=== PATIENT | female | born 1980 | race Caucasian/White ===

== ENCOUNTER 2016-06-12 | Outpatient (CLI) | payer MEDICAID | END 2016-06-12 16:46 | disposition critical access hospital (66) | CPT/HCPCS: A0425; A0429 ==

== ENCOUNTER 2016-06-12 17:13 | Emergency (ER) | payer MEDICAID | END 2016-06-12 20:13 | disposition home or self-care (01) | DX: M54.2 Cervicalgia (principal); S09.90XA Unspecified injury of head, initial encounter; W18.39XA Other fall on same level, initial encounter; F10.120 Alcohol abuse with intoxication, uncomplicated; F17.200 Nicotine dependence, unspecified, uncomplicated ==

== ENCOUNTER 2016-10-16 14:12 | Outpatient (CLI) | payer MEDICAID | END 2016-10-16 14:13 | disposition EMS.NT | DX: S00.81XA Abrasion of other part of head, initial encounter (principal); Y33.XXXA Other specified events, undetermined intent, initial encounter ==

== ENCOUNTER 2017-11-05 | Outpatient (CLI) | END 2017-11-05 17:57 | disposition critical access hospital (66) | CPT/HCPCS: A0425; A0429 ==

== ENCOUNTER 2017-11-05 18:11 | Emergency (ER) | payer MEDICAID ==
--- NOTE | 2017-11-05 18:19 | ED Physician Documentation ---
History of Present Illness - Stated complaint Stated Complaint: HBD - History obtained from History obtained from: Patient, EMS - History of Present Illness Timing: Today Pain level max: 0 Pain level now: 0 Improved by: nothing Worsened by: nothing - Additonal information Additional information: patient was intoxicated at [employer] today, yelling at customers. [place] PD responded, state that she blew a 0.38 on the breathalyzer and gave her the choice between halfway or the ER. Patient reluctantly chose the ER. Drinks daily. No interest in quitting. No SI or HI. Review of Systems Ten Systems: 10 systems reviewed and negative Constitutional: denies: Fever, Chills Ears: denies: Ear pain Nose: denies: Rhinorrhea / runny nose, Congestion Throat: denies: Sore throat Cardiac: denies: Chest pain / pressure Respiratory: denies: Cough GI: reports: Nausea (mild). 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 HEENT: None Psych: None Musculoskeletal: None Derm: None - Past Surgical History Past Surgical History: Yes General: Other - Present Medications Home Medications: Ambulatory Orders Medication Instructions Recorded Confirmed Ibuprofen 600 mg PO PRN PRN 11/05/17 11/05/17 - Allergies Allergies/Adverse Reactions: Allergies Allergy/AdvReac Type Severity Reaction Status Date / Time amoxicillin Allergy Unknown Unknown Verified 01/05/16 01:55 - Social History Does the pt smoke?: Yes Smoking Status: Current every day smoker Does the pt drink ETOH?: Yes Does the pt have substance abuse?: No - Immunizations Immunizations are current?: Yes - POLST Patient has POLST: No PD ED PE NORMAL - Vitals Vital signs reviewed: Yes - General General: Alert and oriented X 3, No acute distress, Well developed/nourished - HEENT HEENT: PERRL, Moist mucous membranes - Neck Neck: Supple, no meningeal sign - Cardiac Cardiac: RRR, Strong equal pulses - Respiratory Respiratory: No respiratory distress, Clear bilaterally - Abdomen Abdomen: Soft, Non tender, Non distended - Derm Derm: Warm and dry, No rash - Extremities Extremities: No deformity, No tenderness to palpate, Normal ROM s pain - Neuro Neuro: Alert and oriented X 3 - Psych Psych: Normal mood, Normal affect Results - Vitals Vitals: Vital Signs - 24 hr 11/05/17 18:21 Temperature 36.6 C Heart Rate 109 H Respiratory 16 Rate Blood Pressure 111/79 O2 Saturation 95 Oxygen O2 Source Room air PD MEDICAL DECISION MAKING - ED course Complexity details: considered differential, d/w patient ED course: Patient is a 37-year-old female, chronic alcoholic who is intoxicated today. Ambulating with a steady gait throughout the emergency department. Speaking clearly and without slurring her words. She was drinking water and eating a sandwich when she eloped from the emergency department. She is not suicidal or homicidal. No criteria for involuntary hold. This document was made in part using voice recognition software. While efforts are made to proofread this document, sound alike and grammatical errors may occur. - Sepsis Event Vital Signs: Vital Signs - 24 hr 11/05/17 18:21 Temperature 36.6 C Heart Rate 109 H Respiratory 16 Rate Blood Pressure 111/79 O2 Saturation 95 Oxygen O2 Source Room air Departure - Departure Disposition: ED Elope Clinical Impression: Alcoholism Alcohol intoxication Qualifiers: Complication of substance-induced condition: uncomplicated Qualified Code(s): F10.920 - Alcohol use, unspecified with intoxication, uncomplicated Discharge Date/Time: 11/05/17 18:52
[2017-11-05 18:26] VITALS: BP 111/79
== END 2017-11-05 18:52 | disposition left against medical advice (07) ==
LOC: EDUNIT# → ED 18:11
DX: F10.920 Alcohol use, unspecified with intoxication, uncomplicated (principal); F17.200 Nicotine dependence, unspecified, uncomplicated
CPT/HCPCS: 99282

== ENCOUNTER 2017-11-22 10:03 | Outpatient (CLI) | payer MEDICAID | END 2017-11-22 10:04 | disposition critical access hospital (66) | LOC: EMS 10:03 | PROVIDERS: ATTEND Surgery | DX: R41.82 Altered mental status, unspecified (principal); Z72.89 Other problems related to lifestyle | CPT/HCPCS: A0425; A0429; A0999 ==

== ENCOUNTER 2017-11-22 10:19 | Emergency (ER) | payer MEDICAID ==
[2017-11-22 10:25] VITALS: BP 126/87
--- NOTE | 2017-11-22 10:57 | ED Physician Documentation ---
History of Present Illness - Stated complaint Stated Complaint: HBD - Chief complaint Chief Complaint: General - History obtained from History obtained from: Patient - History of Present Illness Timing: Today - Additonal information Additional information: 37-year-old female had been drinking earlier in the day and she was found in the parking lot of the old [employer] dealership in [place]. She was laying in the parking lot unconscious and the police were called. She was not making much sense when they arrived and they called the ambulance patient was transported the hospital with alcohol intoxication. 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 : None HEENT: None Psych: None Musculoskeletal: None Derm: None - Past Surgical History Past Surgical History: Yes General: Other - Present Medications Home Medications: Ambulatory Orders Medication Instructions Recorded Confirmed Ibuprofen 600 mg PO PRN PRN 11/05/17 11/05/17 - Allergies Allergies/Adverse Reactions: Allergies Allergy/AdvReac Type Severity Reaction Status Date / Time amoxicillin Allergy Unknown Unknown Verified 11/22/17 10:25 - Social History Does the pt smoke?: Yes Smoking Status: Current every day smoker Does the pt drink ETOH?: Yes Does the pt have substance abuse?: No - Immunizations Immunizations are current?: Yes - POLST Patient has POLST: No PD ED PE NORMAL - Vitals Vital signs reviewed: Yes (tachy and hypertensive ) - General General: Alert and oriented X 3, Well developed/nourished, Other (AOB and with slurred speech) - HEENT HEENT: Atraumatic, PERRL, EOMI - Neck Neck: Supple, no meningeal sign - Cardiac Cardiac: RRR, No murmur - Respiratory Respiratory: No respiratory distress, Clear bilaterally - Abdomen Abdomen: Soft, Non tender - Back Back: No CVA TTP, No spinal TTP - Derm Derm: Normal color, Warm and dry, No rash - Extremities Extremities: No deformity, No edema - Neuro Neuro: Alert and oriented X 3, 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, No motor deficit, No sensory deficit, Normal speech Eye Opening: Spontaneous Motor: Obeys Commands Verbal: Oriented GCS Score: 15 - Psych Psych: Normal mood, Normal affect Results - Vitals Vitals: Vital Signs - 24 hr 11/22/17 10:21 Temperature 36.6 C Heart Rate 110 H Respiratory 18 Rate Blood Pressure 126/87 H O2 Saturation 91 L Oxygen O2 Source Room air PD MEDICAL DECISION MAKING - ED course Complexity details: considered differential, d/w patient ED course: 37-year-old female who was intoxicated and passed out in the parking lot is brought to the hospital for evaluation she is here in the emergency department for over an hour before I am able to make it into her room and at that point she is ready to leave the emergency department. We have no reason to hold her here and after a screening examination she does not appear to be suffering from a life-threatening emergency. She is discharged to the street in care of herself. Her most significant complaint was that her $5 with a beer had been removed from her possession. - Sepsis Event Vital Signs: Vital Signs - 24 hr 11/22/17 10:21 Temperature 36.6 C Heart Rate 110 H Respiratory 18 Rate Blood Pressure 126/87 H O2 Saturation 91 L Oxygen O2 Source Room air Departure - Departure Disposition: 01 Home, Self Care Clinical Impression: Alcohol intoxication Qualifiers: Complication of substance-induced condition: with delirium Qualified Code(s): F10.921 - Alcohol use, unspecified with intoxication delirium Instructions: ED Alcohol Intoxication Follow-Up: Rose Patterson MD [Primary Care Provider] - Discharge Date/Time: 11/22/17 11:10
== END 2017-11-22 11:10 | disposition home or self-care (01) ==
LOC: EDUNIT# → ED 10:19
DX: F10.921 Alcohol use, unspecified with intoxication delirium (principal); F17.200 Nicotine dependence, unspecified, uncomplicated
CPT/HCPCS: 99283

== ENCOUNTER 2018-03-20 02:59 | Outpatient (CLI) | payer MEDICAID | END 2018-03-20 03:00 | disposition critical access hospital (66) | LOC: EMS 02:59 | PROVIDERS: ATTEND Surgery | DX: R46.89 Other symptoms and signs involving appearance and behavior (principal); R41.82 Altered mental status, unspecified | CPT/HCPCS: A0425; A0429; A0999 ==

== ENCOUNTER 2018-03-20 03:15 | Emergency (ER) | payer MEDICAID ==
[2018-03-20] MEDS ORDERED: OLANZapine 10 MG VIAL IM STA (03:40)
[2018-03-20 03:57] LABS: BASOPHILS % (AUTO) 0.5 %; EOSINOPHILS % (AUTO) 0.7 %; HGB - HEMOGLOBIN 14.9 g/dL (12.0-16.0); LYMPHOCYTES # (AUTO) 1.9 10^3/uL (1.5-3.5); LYMPHOCYTES % (AUTO) 39.5 %; MEAN CORPUSCULAR HEMOGLOBIN 35.5 pg (27.0-31.0); MEAN CORPUSCULAR HGB CONC 35.8 g/dL (32.0-36.0); MEAN CORPUSCULAR VOLUME 99.2 fL (81.0-99.0); MEAN PLATELET VOLUME 8.8 fL (7.9-10.8); MONOCYTES # (AUTO) 0.7 10^3/uL (0.0-1.0); MONOCYTES % (AUTO) 15.4 %; NEUTROPHILS # (AUTO) 2.1 10^3/uL (1.5-6.6); NEUTROPHILS % (AUTO) 43.9 %; PLT - PLATELET COUNT 227 10^3/uL (130-450); RED CELL DISTRIBUTION WIDTH 14.5 % (12.0-15.0); WHITE BLOOD COUNT 4.8 x10^3/uL (4.8-10.8)
--- NOTE | 2018-03-20 04:11 | ED Physician Documentation ---
History of Present Illness - Stated complaint Stated Complaint: ETOH - Chief complaint Chief Complaint: MHE - History obtained from History obtained from: EMS - History of Present Illness Timing: Today - Additonal information Additional information: 37 y/o female found on the side of the road yelling for help. Obviously intoxicated unable to care for herself she was transported to the hospital uncooperative. 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 : None HEENT: None Psych: None Musculoskeletal: None Derm: None - Past Surgical History Past Surgical History: Yes General: Other - Present Medications Home Medications: Ambulatory Orders Medication Instructions Recorded Confirmed Ibuprofen 600 mg PO PRN PRN 11/05/17 11/05/17 - Allergies Allergies/Adverse Reactions: Allergies Allergy/AdvReac Type Severity Reaction Status Date / Time amoxicillin Allergy Unknown Unknown Verified 03/20/18 03:36 - Social History Does the pt smoke?: Yes Smoking Status: Current every day smoker Does the pt drink ETOH?: Yes Does the pt have substance abuse?: No - Immunizations Immunizations are current?: Yes - POLST Patient has POLST: No PD ED PE NORMAL - Vitals Vital signs reviewed: Yes (tachy and hypertensive ) - General General: Well developed/nourished, Other (fighting restraints yelling profanity asking for help AOB) - HEENT HEENT: Atraumatic, PERRL, EOMI - Neck Neck: Supple, no meningeal sign - Cardiac Cardiac: No murmur, Other (tachy to 100) - Respiratory Respiratory: No respiratory distress, Clear bilaterally - Abdomen Abdomen: Soft, Non tender - Back Back: No CVA TTP, No spinal TTP - Derm Derm: Normal color, Warm and dry, No rash - Extremities Extremities: No deformity, No edema - Neuro Neuro: [employer] 2-12 intact, No motor deficit, No sensory deficit Eye Opening: Spontaneous Motor: Obeys Commands Verbal: Confused GCS Score: 14 - Psych Psych: Normal affect, Other (mood is uncooperative ) Results - Vitals Vitals: Vital Signs - 24 hr 03/20/18 03/20/18 03/20/18 03:27 03:57 05:52 Temperature 36.7 C Heart Rate 118 H 125 H 113 H Respiratory 24 22 13 Rate Blood Pressure 141/103 H O2 Saturation 95 96 94 Oxygen O2 Source Room air - Labs Labs: Laboratory Tests 03/20/18 03/20/18 03/20/18 03:50 03:50 03:50 WBC 4.8 RBC 4.20 Hgb 14.9 Hct 41.7 MCV 99.2 H MCH 35.5 H MCHC 35.8 RDW 14.5 Plt Count 227 MPV 8.8 Neut # (Auto) 2.1 Lymph # (Auto) 1.9 Reeves # (Auto) 0.7 Eos # (Auto) 0.0 Baso # (Auto) 0.0 Absolute Nucleated RBC 0.00 Nucleated RBC % 0.1 Sodium 142 Potassium 3.6 Chloride 106 Carbon Dioxide 23 Anion Gap 13.0 BUN 5 L Creatinine 0.4 Estimated GFR (MDRD) 181 Glucose 106 H Calcium 9.0 Total Bilirubin 0.6 AST 273 H ALT 260 H Alkaline Phosphatase 61 Troponin I < 0.04 Total Protein 8.2 Albumin 4.3 Globulin 3.9 Albumin/Globulin Ratio 1.1 Lipase 44 Salicylates < 6.0 Acetaminophen < 10 L Ethyl Alcohol 417.6 PD MEDICAL DECISION MAKING - ED course Complexity details: reviewed old records, reviewed results, re-evaluated patient, considered differential, d/w patient ED course: 37 y/o female with a history of alcoholism arrives to the ED acutely intoxicated and uncooperative. She is restrained and blood work is obtained demonstrating a near fatal alcohol overdose. The patient remains aggressively uncooperative and is medicated with zyprexa 10mg IM and when this is in-effective she is administered ativan 2mg IM. She is observed in the ED with intention to discharge the patient when her alcohol level is metabolized to a safe level. At shift change care of the patient is turned over to Dr. Mckenzie. Departure - Departure Clinical Impression: Pathological alcohol intoxication with delirium Condition: Serious Instructions: ED Overdose Alcohol Follow-Up: [facility] [Provider Group]
[2018-03-20 04:13] LABS: ACETAMINOPHEN < 10 ug/mL (10-30); ALBUMIN 4.3 g/dL (3.2-5.5); ALBUMIN/GLOBULIN RATIO 1.1 (1.0-2.2); ALKALINE PHOSPHATASE 61 IU/L (42-121); ALT ALANINE AMINOTRANSFERASE 260 IU/L (10-60); AST ASPARTATE AMINOTRANSFERASE 273 IU/L (10-42); BILIRUBIN,TOTAL 0.6 mg/dL (0.2-1.0); BUN - BLOOD UREA NITROGEN 5 mg/dL (6-20); CARBON DIOXIDE - CO2 23 mmol/L (21-32); CHLORIDE 106 mmol/L (101-111); CREATININE 0.4 mg/dL (0.4-1.0); GFR - MDRD 181 (>89); GLUCOSE 106 mg/dL (70-100); LIPASE 44 U/L (22-51); SALICYLATE < 6.0 mg/dL; SODIUM 142 mmol/L (135-145); TOTAL PROTEIN 8.2 g/dL (6.7-8.2)
[2018-03-20] MEDS ORDERED: LORazepam 2 MG/ML VIAL IM STA (04:27)
[2018-03-20 11:27] VITALS: BP 118/83
--- NOTE | 2018-03-20 14:21 | ED Physician Documentation ---
ED Addendum - Addendum Addendum: 03/20/18 14:19 She rested through the morning after change of shift. She did not have any complaints. She awoke enough to be pleasant and cooperative. She had a small bite to eat provided and then was ambulatory to the bathroom. There is no ataxia. She states she would go home and not drink alcohol. I did provide a prescription for in case she wanted to completely stop drinking and would have withdrawal symptoms. She denied any suicidal ideation. She was discharged from the department stable condition ambulatory without any complaints. No final diagnosis acute alcohol intoxication #2 alcohol abuse Disposition discharged home in stable condition
== END 2018-03-20 11:25 | disposition home or self-care (01) ==
LOC: EDUNIT# → ED 03:15
DX: F10.121 Alcohol abuse with intoxication delirium (principal); R00.0 Tachycardia, unspecified; F17.200 Nicotine dependence, unspecified, uncomplicated
CPT/HCPCS: 36415; 80053; 80307; 80320; 80329; 83690; 84484; 85025; 99285

== ENCOUNTER 2018-03-20 13:46 | Outpatient (CLI) | payer MEDICAID | END 2018-03-20 13:47 | disposition critical access hospital (66) | LOC: EMS 13:46 | PROVIDERS: ATTEND Surgery | DX: R46.4 Slowness and poor responsiveness (principal) | CPT/HCPCS: A0425; A0429; A0999 ==

== ENCOUNTER 2018-03-20 13:58 | Emergency (ER) | payer MEDICAID ==
[2018-03-20 14:57] LABS: BASOPHILS % (AUTO) 0.3 %; EOSINOPHILS % (AUTO) 0.7 %; HGB - HEMOGLOBIN 14.1 g/dL (12.0-16.0); LYMPHOCYTES # (AUTO) 1.7 10^3/uL (1.5-3.5); LYMPHOCYTES % (AUTO) 31.6 %; MEAN CORPUSCULAR HEMOGLOBIN 35.1 pg (27.0-31.0); MEAN CORPUSCULAR HGB CONC 35.2 g/dL (32.0-36.0); MEAN CORPUSCULAR VOLUME 99.6 fL (81.0-99.0); MEAN PLATELET VOLUME 8.5 fL (7.9-10.8); MONOCYTES # (AUTO) 0.9 10^3/uL (0.0-1.0); MONOCYTES % (AUTO) 16.7 %; NEUTROPHILS # (AUTO) 2.7 10^3/uL (1.5-6.6); NEUTROPHILS % (AUTO) 50.7 %; PLT - PLATELET COUNT 217 10^3/uL (130-450); RED BLOOD COUNT 4.01 10^6/uL (4.20-5.40); RED CELL DISTRIBUTION WIDTH 14.2 % (12.0-15.0); WHITE BLOOD COUNT 5.3 x10^3/uL (4.8-10.8)
[2018-03-20] MEDS ORDERED: FOLIC ACID INJ 1 MG, THIAMINE INJ 100 MG, MAGNESIUM SULFATE 2 GM, MULTIVITAMIN 10 ML in... IV STA ×5 (15:02)
[2018-03-20] MEDS ORDERED: THIAMINE INJ 100 MG in SODIUM CHLORIDE 0.9% 50 ML IV STA (15:02)
[2018-03-20] MEDS ORDERED: NALOXONE 0.4 MG/ML VIAL IVP STA (15:02)
--- NOTE | 2018-03-20 15:04 | ED Physician Documentation ---
PD HPI OVERDOSE - Stated complaint Stated Complaint: ETOH - Chief complaint Chief Complaint: MHE - History obtained from History obtained from: EMS - History of Present Illness Timing - onset: Today (She was seen overnight for alcohol intoxication. She returns by EMS found laying by the side of the road pretty much unresponsive. Patient is obtunded on my evaluation with pinpoint pupils. 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 HEENT: None Psych: None Musculoskeletal: None Derm: None - Past Surgical History Past Surgical History: Yes General: Other - Present Medications Home Medications: Ambulatory Orders Medication Instructions Recorded Confirmed RX: Ibuprofen 600 mg PO PRN PRN 11/05/17 11/05/17 Promethazine [Phenergan] 25 mg PO Q6H PRN #30 tab 03/20/18 chlordiazePOXIDE [Librium] 25 mg PO TID PRN #20 capsule 03/20/18 - Allergies Allergies/Adverse Reactions: Allergies Allergy/AdvReac Type Severity Reaction Status Date / Time amoxicillin Allergy Unknown Unknown Verified 03/20/18 14:15 - Social History Does the pt smoke?: Yes Smoking Status: Current every day smoker Does the pt drink ETOH?: Yes Does the pt have substance abuse?: No - Immunizations Immunizations are current?: Yes - POLST Patient has POLST: No PD ED PE NORMAL - Vitals Vital signs reviewed: Yes - General General: Other (She is somnolent and snoring, she is protecting her airway laying on her side without active vomiting or obvious evidence of trauma) - HEENT HEENT: Other (Very small pupils) - Neck Neck: Supple, no meningeal sign, No bony TTP - Cardiac Cardiac: RRR, No murmur - Respiratory Respiratory: No respiratory distress, Clear bilaterally - Abdomen Abdomen: Soft, Non tender - Back Back: No CVA TTP, No spinal TTP - Derm Derm: Normal color, Warm and dry - Extremities Extremities: No deformity, No tenderness to palpate, Normal ROM s pain, No edema, No calf tenderness / cord Results - Vitals Vitals: Vital Signs - 24 hr 03/20/18 03/20/18 03/20/18 14:09 18:00 19:00 Temperature 36.5 C Heart Rate 94 94 Respiratory 15 16 16 Rate Blood Pressure 103/59 L 82/50 L O2 Saturation 97 98 97 Oxygen O2 Source Room air - Labs Labs: Laboratory Tests 03/20/18 03/20/18 14:36 14:36 WBC 5.3 RBC 4.01 L Hgb 14.1 Hct 40.0 MCV 99.6 H MCH 35.1 H MCHC 35.2 RDW 14.2 Plt Count 217 MPV 8.5 Neut # (Auto) 2.7 Lymph # (Auto) 1.7 [place] # (Auto) 0.9 Eos # (Auto) 0.0 Baso # (Auto) 0.0 Absolute Nucleated RBC 0.00 Nucleated RBC % 0.1 Sodium 136 Potassium 3.6 Chloride 100 L Carbon Dioxide 23 Anion Gap 13.0 BUN 7 Creatinine 0.4 Estimated GFR (MDRD) 181 Glucose 96 Calcium 8.5 Magnesium 1.9 Total Bilirubin 0.6 AST 266 H ALT 262 H Alkaline Phosphatase 51 Total Protein 7.3 Albumin 4.0 Globulin 3.3 Albumin/Globulin Ratio 1.2 Lipase 46 Salicylates < 6.0 Acetaminophen < 10 L Ethyl Alcohol 471.9 - Rads (name of study) CT Head and Cspine Radiology: EMP read contemporaneously (NAD) PD MEDICAL DECISION MAKING - ED course ED course: 37-year-old woman presents obtunded, presumed alcohol Intoxication given her history, but since no history is available CT of the head and neck and labs are done. We also trialed Narcan given her small pupils which had no effect. Blood alcohol 470 which is causative. She was observed for several hours and basically came back to normal mental status despite the persistent high alcohol level. I was not prepared to discharge her but she started demanding discharge and eventually ambulated out of the emergency department. Departure - Departure Disposition: ED Elope Clinical Impression: Alcohol intoxication Qualifiers: Complication of substance-induced condition: with delirium Qualified Code(s): F10.921 - Alcohol use, unspecified with intoxication delirium Altered mental status Qualifiers: Altered mental status type: coma Coma depth: [place] coma 3-8 Coma timing: in the field (EMT or ambulance) Qualified Code(s): R40.2431 - Dalila coma scale score 3-8, in the field [EMT or ambulance] Condition: Stable Discharge Date/Time: 03/20/18 19:10
[2018-03-20 15:05] LABS: ACETAMINOPHEN < 10 ug/mL (10-30); ALBUMIN/GLOBULIN RATIO 1.2 (1.0-2.2); ALKALINE PHOSPHATASE 51 IU/L (42-121); ALT ALANINE AMINOTRANSFERASE 262 IU/L (10-60); AST ASPARTATE AMINOTRANSFERASE 266 IU/L (10-42); BILIRUBIN,TOTAL 0.6 mg/dL (0.2-1.0); BUN - BLOOD UREA NITROGEN 7 mg/dL (6-20); CALCIUM 8.5 mg/dL (8.5-10.3); CARBON DIOXIDE - CO2 23 mmol/L (21-32); CHLORIDE 100 mmol/L (101-111); CREATININE 0.4 mg/dL (0.4-1.0); GFR - MDRD 181 (>89); GLUCOSE 96 mg/dL (70-100); LIPASE 46 U/L (22-51); MAGNESIUM 1.9 mg/dL (1.7-2.8); SALICYLATE < 6.0 mg/dL; SODIUM 136 mmol/L (135-145); TOTAL PROTEIN 7.3 g/dL (6.7-8.2)
[2018-03-20] MEDS ORDERED: THIAMINE 100 MG/1 ML 2 ML MDV ONE (15:28)
--- NOTE | 2018-03-20 16:06 | CT Report ---
Reason: etoh poss trauma Procedure Date: 03/20/2018 Accession Number: [id number] / [id number] Procedure: CT - Head W/O CPT Code: FULL RESULT: EXAM: CT HEAD EXAM DATE: 03/20/2018 03:22 PM. CLINICAL HISTORY: Etoh. Possible trauma. COMPARISON: HEAD W/O 06/12/2016 5:33 PM. TECHNIQUE: Multiaxial CT images were obtained from the foramen magnum to the vertex. Reformats: Sagittal and coronal. IV contrast: None. In accordance with CT protocol optimization, one or more of the following dose reduction techniques were utilized for this exam: automated exposure control, adjustment of mA and/or KV based on patient size, or use of iterative reconstructive technique. FINDINGS: Parenchyma: No intraparenchymal hemorrhage. No evidence of mass, midline shift, or CT findings of infarction. Rosales-white differentiation is distinct. Extraaxial Spaces: Normal for age. No subdural or epidural collections identified. Ventricles: Normal in size and position. Sinuses and Orbits: Imaged paranasal sinuses, orbits, and mastoids show no significant abnormality. Bones: No evidence of fracture or calvarial defect. Other: None. IMPRESSION: Normal head CT. RADIA
--- NOTE | 2018-03-20 16:09 | CT Report ---
Reason: etoh poss trauma Procedure Date: 03/20/2018 Accession Number: [id number] / [id number] Procedure: CT - Cervical Spine W/O CPT Code: FULL RESULT: EXAM: CT CERVICAL SPINE WITHOUT CONTRAST DATE: 03/20/2018 03:22 PM. HISTORY: ETOH. Possible trauma. COMPARISONS: CERVICAL SPINE W/O 06/12/2016 5:36 PM. TECHNIQUE: Thin-section axial images were acquired of the cervical spine without contrast. Post-processing: Coronal and sagittal reformats. Other: None. In accordance with CT protocol optimization, one or more of the following dose reduction techniques were utilized for this exam: automated exposure control, adjustment of mA and/or KV based on patient size, or use of iterative reconstructive technique. FINDINGS: Alignment: No scoliosis or spondylolisthesis. Bones: No fracture or bone lesion. Interspace Levels/Facets: C1-C2: Unremarkable. C2-C3: Unremarkable. C3-C4: Unremarkable. C4-C5: Unremarkable. C5-C6: Unremarkable. C6-C7: Unremarkable. C7-T1: Unremarkable. Musculature: Normal. No fatty atrophy. Other: The paravertebral and prevertebral soft tissues are unremarkable. The lung apices are clear. IMPRESSION: Normal cervical spine CT. RADIA
[2018-03-20 19:16] VITALS: BP 82/50
== END 2018-03-20 19:10 | disposition left against medical advice (07) ==
LOC: ED 13:58
DX: F10.921 Alcohol use, unspecified with intoxication delirium (principal); Y90.8 Blood alcohol level of 240 mg/100 ml or more; R40.20 Unspecified coma; R40.2431 Glasgow coma scale score 3-8, in the field [EMT or ambulance]; F17.200 Nicotine dependence, unspecified, uncomplicated; R00.0 Tachycardia, unspecified
CPT/HCPCS: 36415; 70450; 72125; 80053; 80307; 80320; 80329; 83690; 83735; 84484; 85025; 96365; 96372; 96375; 99283; 99284; 99285; J2060; J3411; J7040

== ENCOUNTER 2018-10-15 19:29 | Outpatient (CLI) | payer MEDICAID | END 2018-10-15 19:30 | disposition critical access hospital (66) | LOC: EMS 19:29 | PROVIDERS: ATTEND Surgery | DX: R45.6 Violent behavior (principal); Z72.89 Other problems related to lifestyle | CPT/HCPCS: A0425; A0429; A0999 ==

== ENCOUNTER 2018-10-15 19:42 | Emergency (ER) | payer MEDICAID ==
[2018-10-15] MEDS ORDERED: OLANZapine 10 MG VIAL IM STA (19:57)
--- NOTE | 2018-10-15 20:03 | ED Physician Documentation ---
History of Present Illness - Stated complaint Stated Complaint: ETOH - History obtained from History obtained from: Patient, EMS - History of Present Illness Timing: Today Pain level max: 0 Pain level now: 0 - Additonal information Additional information: intoxicated. Found by EMS. Screaming for help. EMS states that she kicked them and so they restrained her to the backboard and brought her here. States her DENNISE was 320. Patient screaming and uncooperative. 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 HEENT: None Psych: None Musculoskeletal: None Derm: None - Past Surgical History Past Surgical History: Yes General: Other - Present Medications Home Medications: Ambulatory Orders Medication Instructions Recorded Confirmed Ibuprofen 600 mg PO PRN PRN 11/05/17 11/05/17 Promethazine [Phenergan] 25 mg PO Q6H PRN #30 tab 03/20/18 chlordiazePOXIDE [Librium] 25 mg PO TID PRN #20 capsule 03/20/18 - Allergies Allergies/Adverse Reactions: Allergies Allergy/AdvReac Type Severity Reaction Status Date / Time amoxicillin Allergy Unknown Unknown Verified 03/20/18 14:15 - Social History Does the pt smoke?: Yes Smoking Status: Current every day smoker Does the pt drink ETOH?: Yes Does the pt have substance abuse?: No - Immunizations Immunizations are current?: Yes - POLST Patient has POLST: No PD ED PE NORMAL - Vitals Vital signs reviewed: Yes - General General: Other (alert, screaming, belligerent) - HEENT HEENT: Moist mucous membranes, Pharynx benign - Neck Neck: Supple, no meningeal sign - Cardiac Cardiac: RRR - Respiratory Respiratory: No respiratory distress, Clear bilaterally - Derm Derm: Warm and dry - Extremities Extremities: Other (MAEE, restrained) - Neuro Neuro: Other (alert, intoxicated) Results - Vitals Vitals: Vital Signs - 24 hr 10/15/18 10/15/18 10/15/18 20:22 20:42 21:07 Temperature 36.9 C Heart Rate 125 H 130 H 117 H Respiratory 22 14 16 Rate Blood Pressure 161/76 H 142/86 H 94/57 L O2 Saturation 100 94 92 10/15/18 10/15/18 21:25 23:00 Temperature Heart Rate 110 H 105 H Respiratory 14 14 Rate Blood Pressure 104/59 L O2 Saturation 95 98 Oxygen O2 Source Nasal cannula - Labs Labs: Laboratory Tests 10/15/18 10/15/18 20:47 20:47 WBC 7.5 RBC 4.34 Hgb 14.9 Hct 41.8 MCV 96.3 MCH 34.3 H MCHC 35.6 RDW 13.1 Plt Count 258 MPV 8.4 Neut # (Auto) 4.6 Lymph # (Auto) 2.4 [place] # (Auto) 0.4 Eos # (Auto) 0.0 Baso # (Auto) 0.0 Absolute Nucleated RBC 0.00 Nucleated RBC % 0.0 Sodium 137 Potassium 3.5 Chloride 104 Carbon Dioxide 19 L Anion Gap 14.0 H BUN 5 L Creatinine 0.5 Estimated GFR (MDRD) 139 Glucose 113 H Calcium 8.6 Total Bilirubin 0.5 AST 42 ALT 34 Alkaline Phosphatase 55 Total Protein 8.2 Albumin 4.2 Globulin 4.0 Albumin/Globulin Ratio 1.1 Lipase 30 Ethyl Alcohol 415.5 PD MEDICAL DECISION MAKING - ED course Complexity details: reviewed old records, reviewed results, considered differential ED course: Patient with alcohol intoxication tonight. Given Zyprexa and ketamine. Patient fell asleep. Will allow her to sober in the emergency department and be reevaluated by the oncoming. Patient signed out This document was made in part using voice recognition software. While efforts are made to proofread this document, sound alike and grammatical errors may occur. Departure - Departure Clinical Impression: Alcohol abuse Alcohol intoxication Qualifiers: Complication of substance-induced condition: uncomplicated Qualified Code(s): F10.920 - Alcohol use, unspecified with intoxication, uncomplicated Condition: Stable
[2018-10-15] MEDS ORDERED: KETAMINE 500 MG/10 ML VIAL IM STA (20:09)
[2018-10-15 20:53] LABS: BASOPHILS % (AUTO) 0.3 %; EOSINOPHILS % (AUTO) 0.2 %; HGB - HEMOGLOBIN 14.9 g/dL (12.0-16.0); LYMPHOCYTES # (AUTO) 2.4 10^3/uL (1.5-3.5); LYMPHOCYTES % (AUTO) 32.7 %; MEAN CORPUSCULAR HEMOGLOBIN 34.3 pg (27.0-31.0); MEAN CORPUSCULAR HGB CONC 35.6 g/dL (32.0-36.0); MEAN CORPUSCULAR VOLUME 96.3 fL (81.0-99.0); MEAN PLATELET VOLUME 8.4 fL (7.9-10.8); MONOCYTES # (AUTO) 0.4 10^3/uL (0.0-1.0); MONOCYTES % (AUTO) 5.1 %; NEUTROPHILS # (AUTO) 4.6 10^3/uL (1.5-6.6); NEUTROPHILS % (AUTO) 61.7 %; PLT - PLATELET COUNT 258 10^3/uL (130-450); RED BLOOD COUNT 4.34 10^6/uL (4.20-5.40); RED CELL DISTRIBUTION WIDTH 13.1 % (12.0-15.0); WHITE BLOOD COUNT 7.5 x10^3/uL (4.8-10.8)
[2018-10-15 21:05] LABS: ALBUMIN 4.2 g/dL (3.2-5.5); ALBUMIN/GLOBULIN RATIO 1.1 (1.0-2.2); BILIRUBIN,TOTAL 0.5 mg/dL (0.2-1.0); CALCIUM 8.6 mg/dL (8.5-10.3); CREATININE 0.5 mg/dL (0.4-1.0); TOTAL PROTEIN 8.2 g/dL (6.7-8.2)
[2018-10-16 06:48] VITALS: BP 139/95
--- NOTE | 2018-10-16 06:51 | ED Physician Documentation ---
ED Addendum - Addendum Addendum: 10/16/18 06:49 Patient received an hand off from Dr. Evangelista at change of shift. Patient is intoxicated and required chemical restraint. No mental health concerns that will need to be further evaluated during this stay. Once patient is more sober, patient is allowed to be discharged. Patient was monitored overnight with no need for further medications. Patient awoke in the morning and was clinically sober. Patient ambulated throughout ED with a steady gait. Patient contacted boyfriend for ride home.
== END 2018-10-16 07:06 | disposition home or self-care (01) ==
LOC: ED 19:42
DX: F10.120 Alcohol abuse with intoxication, uncomplicated (principal); Y90.8 Blood alcohol level of 240 mg/100 ml or more; F17.200 Nicotine dependence, unspecified, uncomplicated
CPT/HCPCS: 36415; 80053; 80320; 83690; 85025; 96372; 99284

== ENCOUNTER 2019-09-06 01:12 | Outpatient (CLI) | payer MEDICAID | END 2019-09-06 01:13 | disposition critical access hospital (66) | LOC: EMS 01:12 | PROVIDERS: ATTEND Surgery | DX: S01.01XA Laceration without foreign body of scalp, initial encounter (principal); X58.XXXA Exposure to other specified factors, initial encounter | CPT/HCPCS: A0425; A0429; A0999 ==

== ENCOUNTER 2019-09-06 01:31 | Emergency (ER) | payer MEDICAID ==
[2019-09-06 02:53] VITALS: BP 105/62
--- NOTE | 2019-09-06 03:01 | CT Report ---
Reason: fall/head injury Procedure Date: 09/06/2019 Accession Number: [id number] / [id number] Procedure: CT - HEAD WO CPT Code: Final Report FULL RESULT: EXAM: CT HEAD EXAM DATE: 09/06/2019 02:45 AM. CLINICAL HISTORY: Fall/head injury. COMPARISON: HEAD W/O 03/20/2018 3:22 PM. TECHNIQUE: Multiaxial CT images were obtained from the foramen magnum to the vertex. Reformats: Sagittal and coronal. IV contrast: None. In accordance with CT protocol optimization, one or more of the following dose reduction techniques were utilized for this exam: automated exposure control, adjustment of mA and/or KV based on patient size, or use of iterative reconstructive technique. FINDINGS: Parenchyma: No intraparenchymal hemorrhage. No evidence of mass, midline shift, or CT findings of infarction. Rosales-white differentiation is distinct. Extraaxial Spaces: Normal for age. No subdural or epidural collections identified. Ventricles: Normal in size and position. Sinuses and Orbits: Imaged paranasal sinuses, orbits, and mastoids show no significant abnormality. Bones: No evidence of fracture or calvarial defect. Other: None. IMPRESSION: Normal head CT. RADIA
--- NOTE | 2019-09-06 03:02 | CT Report ---
Reason: fall/head/neck injury Procedure Date: 09/06/2019 Accession Number: [id number] / [id number] Procedure: CT - CERVICAL SPINE WO CPT Code: Final Report FULL RESULT: EXAM: CT CERVICAL SPINE WITHOUT CONTRAST DATE: 09/06/2019 02:45 AM. HISTORY: Fall. Head and neck injury. COMPARISONS: CERVICAL SPINE W/O 03/20/2018 3:22 PM. TECHNIQUE: Thin-section axial images were acquired of the cervical spine without contrast. Post-processing: Coronal and sagittal reformats. Other: None. In accordance with CT protocol optimization, one or more of the following dose reduction techniques were utilized for this exam: automated exposure control, adjustment of mA and/or KV based on patient size, or use of iterative reconstructive technique. FINDINGS: Alignment: No scoliosis or spondylolisthesis. Bones: No fracture or bone lesion. Interspace Levels/Facets: C1-C2: Unremarkable. C2-C3: Unremarkable. C3-C4: Unremarkable. C4-C5: Unremarkable. C5-C6: Unremarkable. C6-C7: Unremarkable. C7-T1: Unremarkable. Musculature: Unremarkable. Other: The paravertebral and prevertebral soft tissues are unremarkable. The lung apices are clear. IMPRESSION: 1. No acute cervical spine abnormality. RAD[facility]
--- NOTE | 2019-09-06 03:16 | ED Physician Documentation ---
PD HPI HEAD INJURY - Stated complaint Stated Complaint: HEAD LAC - Chief complaint Chief Complaint: Trauma Hd/Nk - History obtained from History obtained from: Patient, EMS - Additional information Additional information: PT is brought to the ED after drinking alcohol this evening and falling. Pt had been noted by neighbors to be going around the [employer] park, calling for her boyfriend, whom the pt states is "JEANINE". Pt does not remember falling. Neighbors noted her to be laying on the ground and bleeding, so they called EMS. Pt denies other complaints at this time. No neck pain. No headache. No NV. No CP or SOB. No recent fevers. Review of Systems Ten Systems: 10 systems reviewed and negative Constitutional: reports: Reviewed and negative Eyes: reports: Reviewed and negative Ears: reports: Reviewed and negative Nose: reports: Reviewed and negative Throat: reports: Reviewed and negative Cardiac: reports: Reviewed and negative Respiratory: reports: Reviewed and negative GI: reports: Reviewed and negative : reports: Reviewed and negative Skin: reports: Reviewed and negative Musculoskeletal: reports: Reviewed and negative Neurologic: reports: Reviewed and negative Psychiatric: reports: Reviewed and negative Endocrine: reports: Reviewed and negative Immunocompromised: reports: Reviewed and negative PD PAST MEDICAL HISTORY - Past Medical History Past Medical History: Yes Cardiovascular: None Respiratory: None Neuro: None Endocrine/Autoimmune: None GI: None 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 : None HEENT: None Psych: None Musculoskeletal: None Derm: None - Past Surgical History Past Surgical History: Yes General: Other - Present Medications Home Medications: Ambulatory Orders Medication Instructions Recorded Confirmed Ibuprofen 600 mg PO PRN PRN 11/05/17 11/05/17 Promethazine [Phenergan] 25 mg PO Q6H PRN #30 tab 03/20/18 chlordiazePOXIDE [Librium] 25 mg PO TID PRN #20 capsule 03/20/18 - Allergies Allergies/Adverse Reactions: Allergies Allergy/AdvReac Type Severity Reaction Status Date / Time amoxicillin Allergy Unknown Unknown Verified 09/06/19 01:36 - Social History Does the pt smoke?: Yes Smoking Status: Current every day smoker Does the pt drink ETOH?: Yes Does the pt have substance abuse?: No Substance Use and Type: Marijuana - Immunizations Immunizations are current?: Yes - POLST Patient has POLST: No PD ED PE NORMAL - Vitals Vital signs reviewed: Yes - General General: Alert and oriented X 3, No acute distress, Well developed/nourished, Other (Pt smells moderately of EtOH and is mildly clinically intoxicated.) - HEENT HEENT: PERRL, EOMI, Moist mucous membranes, Other (No laceration found on scalp. Pt has an occiptal abrasion, with bleeding controlled.) - Neck Neck: Supple, no meningeal sign, No bony TTP, Other (in C-collar) - Cardiac Cardiac: RRR, No murmur - Respiratory Respiratory: No respiratory distress, Clear bilaterally - Abdomen Abdomen: Soft, Non tender, Non distended - Derm Derm: Normal color, Warm and dry, No rash - Extremities Extremities: No deformity - Neuro Neuro: Alert and oriented X 3, Other (PT has mildly slurred and slowed speech. No focal deficits.) - Psych Psych: Normal mood, Normal affect Results - Vitals Vitals: Oxygen O2 Source Room air PD MEDICAL DECISION MAKING - ED course Complexity details: reviewed old records, reviewed results, re-evaluated patient, considered differential, d/w patient ED course: PT was worked up with CT scans of the head and c-spine, which were unremarkable. She was observed in the ED and found not to have worsening mental status, and was deemed stable for d/c home. Departure - Departure Disposition: Home, Self Care Clinical Impression: Alcohol intoxication Qualifiers: Complication of substance-induced condition: uncomplicated Qualified Code(s): F10.920 - Alcohol use, unspecified with intoxication, uncomplicated Head injury Qualifiers: Encounter type: initial encounter Qualified Code(s): S09.90XA - Unspecified injury of head, initial encounter Condition: Stable Instructions: ED Alcohol Intoxication, ED Head Injury Closed Discharge Date/Time: 09/06/19 03:52
== END 2019-09-06 03:52 | disposition home or self-care (01) ==
LOC: EDUNIT# → ED 01:31
DX: F17.200 Nicotine dependence, unspecified, uncomplicated (principal); S00.01XA Abrasion of scalp, initial encounter; S09.90XA Unspecified injury of head, initial encounter; F10.129 Alcohol abuse with intoxication, unspecified; W19.XXXA Unspecified fall, initial encounter; Y92.89 Other specified places as the place of occurrence of the external cause
CPT/HCPCS: 70450; 72125; 99283; 99284

== ENCOUNTER 2020-02-10 01:38 | Outpatient (CLI) | payer MEDICAID | END 2020-02-10 01:39 | disposition critical access hospital (66) | LOC: EMS 01:38 | PROVIDERS: ATTEND Surgery | DX: F10.129 Alcohol abuse with intoxication, unspecified (principal) | CPT/HCPCS: A0425; A0429; A0999 ==

== ENCOUNTER 2020-02-10 01:50 | Emergency (ER) | payer MEDICAID ==
--- NOTE | 2020-02-10 04:54 | ED Physician Documentation ---
History of Present Illness - Stated complaint Stated Complaint: EtOH - Chief complaint Chief Complaint: General - History obtained from History obtained from: Patient, EMS - Additonal information Additional information: Patient is brought to the emergency department by EMS after being found to be intoxicated. The patient apparently has a boyfriend but the boyfriend wants nothing to do with her and would not allow the police to bring the patient back home. As such, the patient was sent here. Patient denies complaints and states she wants to go home. She admits to drinking alcohol tonight, though she does not say exactly how much. No drugs. No other complaints at this time. Review of Systems Ten Systems: 10 systems reviewed and negative Constitutional: reports: Reviewed and negative Eyes: reports: Reviewed and negative Ears: reports: Reviewed and negative Nose: reports: Reviewed and negative Throat: reports: Reviewed and negative Cardiac: reports: Reviewed and negative Respiratory: reports: Reviewed and negative GI: reports: Reviewed and negative : reports: Reviewed and negative Skin: reports: Reviewed and negative Musculoskeletal: reports: Reviewed and negative Neurologic: reports: Reviewed and negative Psychiatric: reports: Reviewed and negative Endocrine: reports: Reviewed and negative Immunocompromised: reports: Reviewed and negative PD PAST MEDICAL HISTORY - Past Medical History Cardiovascular: None Respiratory: None Neuro: None Endocrine/Autoimmune: None 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: Yes Smoking Status: Current every day smoker Does the pt drink ETOH?: Yes Does the pt have substance abuse?: No - Immunizations Immunizations are current?: Yes - POLST Patient has POLST: No PD ED PE NORMAL - Vitals Vital signs reviewed: Yes - General General: No acute distress, Other (Patient is awake but visibly intoxicated, speaking slowly with slurred speech and sometimes unintelligibly. Patient smells of alcohol.) - HEENT HEENT: Atraumatic, PERRL, EOMI, Moist mucous membranes - Neck Neck: Supple, no meningeal sign - Cardiac Cardiac: RRR, No murmur, Strong equal pulses - Respiratory Respiratory: No respiratory distress, Clear bilaterally - Abdomen Abdomen: Soft, Non tender, Non distended - Back Back: No CVA TTP - Derm Derm: Normal color, Warm and dry, No rash - Extremities Extremities: No deformity - Neuro Neuro: Other (Alert, clinically intoxicated. Moderate unsteadiness and slurred speech.) - Psych Psych: Normal mood, Normal affect Results - Vitals Vitals: Oxygen O2 Source Room air PD MEDICAL DECISION MAKING - ED course Complexity details: reviewed old records, reviewed results, re-evaluated patient, considered differential, d/w patient ED course: The patient did not have any emergent medical complaints and desire to go home. However, she was quite intoxicated clinically and I did not feel that the patient should be discharged at this time, as she had no family or friends willing to come pick her up. The patient was observed in the emergency department for several hours and allowed to sleep after which she was found to be significantly more sober. I felt the patient was now stable for discharge. Discuss getting help with her drinking, at home management of the symptoms, and the usual indications for return. Departure - Departure Disposition: 01 Home, Self Care Clinical Impression: Alcohol intoxication Qualifiers: Complication of substance-induced condition: uncomplicated Qualified Code(s): F10.920 - Alcohol use, unspecified with intoxication, uncomplicated Condition: Stable Instructions: ED Alcohol Intoxication Discharge Date/Time: 02/10/20 06:22
[2020-02-10 06:22] VITALS: BP 104/63
== END 2020-02-10 06:22 | disposition home or self-care (01) ==
LOC: ED 01:50
DX: F10.129 Alcohol abuse with intoxication, unspecified (principal); F17.200 Nicotine dependence, unspecified, uncomplicated
CPT/HCPCS: 99283

== ENCOUNTER 2020-05-22 | Outpatient (CLI) | payer MEDICAID | END 2020-05-22 23:09 | disposition critical access hospital (66) | CPT/HCPCS: A0425; A0429; A0999 ==

== ENCOUNTER 2020-05-22 23:26 | Emergency (ER) | payer MEDICAID ==
--- NOTE | 2020-05-22 23:12 | ED Physician Documentation ---
History of Present Illness - Stated complaint Stated Complaint: HBD - History obtained from History obtained from: EMS, Other (patient does not contribute to HPI/ROS nor cooperate with PE; she is yelling and combative upon arrival) - History of Present Illness Timing: Unknown - Additonal information Additional information: BIBA. Per EMS report, patient showed up at a friend's house tonight and was a cting belligerent, possibly intoxicated and thus friend called 911. Police arrived and filled out [facility] form (EMS has form with them and on this form it is written "intoxicated to the point she can't care for herself"). Patient has 11 previous [facility] ED visits since 2011; all of these visits were due to alcohol intoxication or problem resulting from acute alcohol intoxication. Patient arrives to ED with restraints in place (placed by EMS). She is yelling "help" repeatedly, and otherwise yells incoherent phrases. After receiving medic report from EMS, I asked patient to stop yelling. She was transferred from EMS stretcher to ED stretcher. I tried to explain to patient that she needs to stop yelling so that I can assess her, and that there are other patients in the ED whose care would be affected by her continuing to yell. Patient's restraints had been briefly loosened so that she could be transferred to ED stretcher, and as I tried to talk to her, she barely missed in her attempt to kick me in the head. I tried to then explain that physical restraints would be necessary but she continued to yell over me, yelling "help" and otherwise incoherent words/phrases. Physical restraints and chemical restraints ordered. more than 1 hour after the zyprexa was given IM, patient continues to yell loudly and repeatedly despite attempts, by myself and ED staff, to de-escalate the situation (dimming lights, speaking in a calm tone). IV then placed and during placement, patient attempted to bite ED RN. She continues to yell "help" over and over and thus 2mg IV ativan ordered. Review of Systems Unable to obtain: Intoxicated, Uncooperative PD PAST MEDICAL HISTORY - Present Medications Home Medications: Ambulatory Orders Medication Instructions Recorded Confirmed Ibuprofen 600 mg PO PRN PRN 11/05/17 11/05/17 Promethazine [Phenergan] 25 mg PO Q6H PRN #30 tab 03/20/18 chlordiazePOXIDE [Librium] 25 mg PO TID PRN #20 capsule 03/20/18 - Allergies Allergies/Adverse Reactions: Allergies Allergy/AdvReac Type Severity Reaction Status Date / Time amoxicillin Allergy Unknown Unknown Verified 05/22/20 23:54 - Social History Does the pt drink ETOH?: Yes PD ED PE NORMAL - Vitals Vital signs reviewed: Yes - HEENT HEENT: PERRL, Other (midline chin echymosis) - Cardiac Cardiac: No murmur - Respiratory Respiratory: No respiratory distress, Clear bilaterally - Abdomen Abdomen: Soft, Non distended - Extremities Extremities: Normal ROM s pain PD ED PE EXPANDED - General General: Disheveled, poorly kept, Other (awake, repeatedly yelling "help" and otherwise incoherent words/phrases. combative) - Cardiac Cardiac: Tachy, Regular Rhythm Results - Vitals Vitals: Oxygen O2 Source Room air Oxygen Flow Rate 3 - Labs Labs: Laboratory Tests 05/22/20 05/23/20 05/23/20 00:01 01:18 01:18 WBC 8.0 RBC 4.48 Hgb 15.3 Hct 43.9 MCV 98.0 MCH 34.2 H MCHC 34.9 RDW 11.9 L Plt Count 220 MPV 10.0 Neut # (Auto) 4.3 Lymph # (Auto) 3.2 [place] # (Auto) 0.4 Eos # (Auto) 0.1 Baso # (Auto) 0.0 Absolute Nucleated RBC 0.00 Nucleated RBC % 0.0 Sodium 141 Potassium 4.0 Chloride 104 Carbon Dioxide 23 Anion Gap 14.0 H BUN 7 Creatinine 0.5 Estimated GFR (MDRD) 138 Glucose 95 Calcium 9.0 Total Bilirubin 0.3 AST 129 H ALT 93 H Alkaline Phosphatase 64 Total Protein 8.2 Albumin 4.3 Globulin 3.9 Albumin/Globulin Ratio 1.1 Lipase 22 Urine HCG, Qual NEGATIVE Salicylates < 6.0 Urine Opiates Screen NEGATIVE Ur Oxycodone Screen NEGATIVE Urine Methadone Screen NEGATIVE Ur Propoxyphene Screen NEGATIVE Acetaminophen < 10 L Ur Barbiturates Screen NEGATIVE Ur Tricyclics Screen NEGATIVE Ur Phencyclidine Scrn NEGATIVE Ur Amphetamine Screen NEGATIVE U Methamphetamines Scrn NEGATIVE U Benzodiazepines Scrn NEGATIVE Urine Cocaine Screen NEGATIVE U Cannabinoids Screen NEGATIVE Ethyl Alcohol 487.7 PD MEDICAL DECISION MAKING - ED course Complexity details: reviewed old records, reviewed results, re-evaluated patient, considered differential ED course: patient responded to the 2mg IV ativan and was asleep during the remainder of my shift; care of patient turned over to Dr. Mckenzie at end of my shift pending reevaluation when she is awake, alert, and appropriately conversant to allow for adequate assessment for proper disposition Departure - Departure Disposition: 01 Home, Self Care Clinical Impression: Alcohol intoxication Condition: Stable Instructions: ED Alcohol Intoxication Follow-Up: Rose Patterson MD [Primary Care Provider] - Comments: Excess alcohol. Seek treatment for alcohol cessation. Stay well-hydrated. Discharge Date/Time: 05/23/20 11:33
[2020-05-22] MEDS ORDERED: OLANZapine 10 MG VIAL IM STA (23:41)
[2020-05-23 00:50] LABS: MUDS CUTOFF CONCENTRATIONS CUTOFF CONC BELOW:
[2020-05-23 00:58] LABS: HCG UR QUAL NEGATIVE
[2020-05-23 01:06] LABS: AMPHETAMINE SCREEN,URINE NEGATIVE (NEGATIVE); BENZODIAZEPINES SCREEN, URINE NEGATIVE (NEGATIVE); COCAINE SCREEN URINE NEGATIVE (NEGATIVE); METHADONE SCREEN, URINE NEGATIVE (NEGATIVE); METHAMPHETAMINES SCREEN, URINE NEGATIVE (NEGATIVE); OPIATE SCREEN, URINE NEGATIVE (NEGATIVE); OXYCODONE SCREEN, URINE NEGATIVE (NEGATIVE); PROPOXYPHENE SCREEN, URINE NEGATIVE (NEGATIVE); TRICYCLIC ANTIDEPRESSANT,URINE NEGATIVE (NEGATIVE)
[2020-05-23] MEDS ORDERED: SODIUM CHLORIDE 0.9% 1,000 ML IV STA (01:21)
[2020-05-23] MEDS ORDERED: LORazepam 2 MG/ML VIAL IVP STA (01:21)
[2020-05-23 01:24] LABS: BASOPHILS % (AUTO) 0.4 %; EOSINOPHILS # (AUTO) 0.1 10^3/uL (0.0-0.7); EOSINOPHILS % (AUTO) 0.6 %; HGB - HEMOGLOBIN 15.3 g/dL (12.0-16.0); LYMPHOCYTES # (AUTO) 3.2 10^3/uL (1.5-3.5); LYMPHOCYTES % (AUTO) 39.3 %; MEAN CORPUSCULAR HEMOGLOBIN 34.2 pg (27.0-31.0); MEAN CORPUSCULAR HGB CONC 34.9 g/dL (32.0-36.0); MONOCYTES # (AUTO) 0.4 10^3/uL (0.0-1.0); MONOCYTES % (AUTO) 5.5 %; NEUTROPHILS # (AUTO) 4.3 10^3/uL (1.5-6.6); PLT - PLATELET COUNT 220 10^3/uL (130-450); RED BLOOD COUNT 4.48 10^6/uL (4.20-5.40); RED CELL DISTRIBUTION WIDTH 11.9 % (12.0-15.0)
[2020-05-23 01:38] LABS: ACETAMINOPHEN < 10 ug/mL (10-30); ALBUMIN 4.3 g/dL (3.2-5.5); ALBUMIN/GLOBULIN RATIO 1.1 (1.0-2.2); ALKALINE PHOSPHATASE 64 IU/L (42-121); ALT ALANINE AMINOTRANSFERASE 93 IU/L (10-60); AST ASPARTATE AMINOTRANSFERASE 129 IU/L (10-42); BILIRUBIN,TOTAL 0.3 mg/dL (0.2-1.0); BUN - BLOOD UREA NITROGEN 7 mg/dL (6-20); CARBON DIOXIDE - CO2 23 mmol/L (21-32); CHLORIDE 104 mmol/L (101-111); CREATININE 0.5 mg/dL (0.4-1.0); GLUCOSE 95 mg/dL (70-100); LIPASE 22 U/L (22-51); SALICYLATE < 6.0 mg/dL; SODIUM 141 mmol/L (135-145); TOTAL PROTEIN 8.2 g/dL (6.7-8.2)
--- NOTE | 2020-05-23 08:52 | ED Physician Documentation ---
ED Addendum - Addendum Addendum: 05/23/20 08:52 Change of shift the patient is lying comfortably and sleeping without any labored respirations. She is somewhat arousable to tactile stimuli. She is not in any restraints at this time but just sleeping on her own. We will give her a little bit more time and then try arousing her more.
[2020-05-23] MEDS ORDERED: IBUPROFEN 600 MG TABLET PO STA (10:10)
[2020-05-23 11:13] VITALS: BP 116/68
== END 2020-05-23 11:33 | disposition home or self-care (01) ==
LOC: EDUNIT# → ED 23:26
DX: F10.129 Alcohol abuse with intoxication, unspecified (principal); Z78.1 Physical restraint status
CPT/HCPCS: 36415; 51701; 80053; 80306; 80307; 80320; 80329; 81025; 83690; 85025; 96361; 96372; 96374; 99281; 99285; A9270; J2060

== ENCOUNTER 2020-06-05 00:55 | Outpatient (CLI) | payer MEDICAID | END 2020-06-05 00:56 | disposition critical access hospital (66) | LOC: EMS 00:55 | PROVIDERS: ATTEND Surgery | DX: R46.89 Other symptoms and signs involving appearance and behavior (principal); Z78.1 Physical restraint status | CPT/HCPCS: A0425; A0429; A0999 ==

== ENCOUNTER 2020-06-05 01:10 | Emergency (ER) | payer MEDICAID ==
[2020-06-05] MEDS ORDERED: KETAMINE 500 MG/10 ML VIAL IM STA (01:18)
[2020-06-05 01:43] LABS: BASOPHILS % (AUTO) 0.4 %; EOSINOPHILS % (AUTO) 0.4 %; HGB - HEMOGLOBIN 15.9 g/dL (12.0-16.0); LYMPHOCYTES # (AUTO) 3.7 10^3/uL (1.5-3.5); LYMPHOCYTES % (AUTO) 37.1 %; MEAN CORPUSCULAR HEMOGLOBIN 35.1 pg (27.0-31.0); MEAN CORPUSCULAR HGB CONC 35.5 g/dL (32.0-36.0); MEAN CORPUSCULAR VOLUME 98.9 fL (81.0-99.0); MEAN PLATELET VOLUME 10.2 fL (7.9-10.8); MONOCYTES # (AUTO) 0.6 10^3/uL (0.0-1.0); MONOCYTES % (AUTO) 6.5 %; NEUTROPHILS # (AUTO) 5.5 10^3/uL (1.5-6.6); NEUTROPHILS % (AUTO) 55.3 %; PLT - PLATELET COUNT 208 10^3/uL (130-450); RED BLOOD COUNT 4.53 10^6/uL (4.20-5.40); RED CELL DISTRIBUTION WIDTH 11.9 % (12.0-15.0); WHITE BLOOD COUNT 9.9 x10^3/uL (4.8-10.8)
[2020-06-05 02:04] LABS: BILIRUBIN,URINE NEGATIVE (NEGATIVE); GLUCOSE, URINE (UA) NEGATIVE (NEGATIVE); KETONES,URINE (UA) NEGATIVE (NEGATIVE); LEUKOCYTE ESTERASE, URINE NEGATIVE (NEGATIVE); NITRITE,URINE NEGATIVE (NEGATIVE); OCCULT BLOOD,URINE NEGATIVE (NEGATIVE); PROTEIN,URINE NEGATIVE (NEGATIVE); UROBILINOGEN,URINE 0.2 (NORMAL) E.U./dL (NORMAL)
[2020-06-05 02:05] LABS: MUDS CUTOFF CONCENTRATIONS CUTOFF CONC BELOW:
[2020-06-05 02:06] LABS: CLARITY,URINE CLEAR (CLEAR); HCG UR QUAL NEGATIVE
[2020-06-05 02:18] LABS: AMPHETAMINE SCREEN,URINE NEGATIVE (NEGATIVE); BENZODIAZEPINES SCREEN, URINE NEGATIVE (NEGATIVE); COCAINE SCREEN URINE NEGATIVE (NEGATIVE); METHADONE SCREEN, URINE NEGATIVE (NEGATIVE); METHAMPHETAMINES SCREEN, URINE NEGATIVE (NEGATIVE); OPIATE SCREEN, URINE NEGATIVE (NEGATIVE); OXYCODONE SCREEN, URINE NEGATIVE (NEGATIVE); PROPOXYPHENE SCREEN, URINE NEGATIVE (NEGATIVE); TRICYCLIC ANTIDEPRESSANT,URINE NEGATIVE (NEGATIVE)
[2020-06-05 02:21] LABS: ACETAMINOPHEN < 10 ug/mL (10-30); ALBUMIN 4.4 g/dL (3.2-5.5); ALKALINE PHOSPHATASE 59 IU/L (42-121); ALT ALANINE AMINOTRANSFERASE 94 IU/L (10-60); AST ASPARTATE AMINOTRANSFERASE 141 IU/L (10-42); BILIRUBIN,TOTAL 0.5 mg/dL (0.2-1.0); BUN - BLOOD UREA NITROGEN 5 mg/dL (6-20); CARBON DIOXIDE - CO2 19 mmol/L (21-32); CHLORIDE 105 mmol/L (101-111); CREATININE 0.6 mg/dL (0.4-1.0); GLUCOSE 103 mg/dL (70-100); LIPASE 46 U/L (22-51); SALICYLATE < 6.0 mg/dL; SODIUM 139 mmol/L (135-145); TOTAL PROTEIN 8.6 g/dL (6.7-8.2)
[2020-06-05] MEDS ORDERED: OLANZapine ODT 5 MG TABLET TL ONE ×2 (03:01→04:17)
--- NOTE | 2020-06-05 03:04 | ED Physician Documentation ---
PD HPI MHE - Stated complaint Stated Complaint: MHE - Chief complaint Chief Complaint: MHE - History obtained from History obtained from: Patient, EMS - History of Present Illness Primary symptom: Aggressive behavior, Medical clearance, Other (intoxicated) Timing - onset: Today Contributing factors: Substance abuse - ETOH Similar symptoms before: Diagnosis (alcohol intoxication) Recently seen: Not recently seen - Additional information Additional information: 39-year-old female was found in the parking lot of the [employer] store sitting Icelandic style yelling help help help. Medics arrived to find the patient belligerent and uncooperative unable to care for herself. She was restrained and brought to the emergency department for further evaluation and treatment. The patient arrives to the emergency department uncooperative partially restrained and yelling at emergency department staff and paramedics. 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 : None HEENT: None Psych: None Musculoskeletal: None Derm: None - Past Surgical History Past Surgical History: Yes General: Other - Present Medications Home Medications: Ambulatory Orders Medication Instructions Recorded Confirmed Ibuprofen 600 mg PO PRN PRN 11/05/17 11/05/17 Promethazine [Phenergan] 25 mg PO Q6H PRN #30 tab 03/20/18 chlordiazePOXIDE [Librium] 25 mg PO TID PRN #20 capsule 03/20/18 - Allergies Allergies/Adverse Reactions: Allergies Allergy/AdvReac Type Severity Reaction Status Date / Time amoxicillin Allergy Unknown Unknown Verified 06/05/20 01:20 - Social History Does the pt smoke?: Yes Smoking Status: Current every day smoker Does the pt drink ETOH?: Yes Does the pt have substance abuse?: No - Immunizations Immunizations are current?: Yes - POLST Patient has POLST: No PD ED PE NORMAL - Vitals Vital signs reviewed: Yes (Tachycardic and hypertensive) - General General: Well developed/nourished, Other (39-year-old female fighting four-point restraints with 2 medics and 2 nurses and the solar installer technician attempting to bring her from the ambulance gurney to the [facility]. The patient is belligerent and uncooperative.) - HEENT HEENT: Atraumatic, PERRL, EOMI - Neck Neck: Supple, no meningeal sign, No bony TTP - Cardiac Cardiac: No murmur, Other (tachy to 120) - Respiratory Respiratory: No respiratory distress, Clear bilaterally - Abdomen Abdomen: Normal bowel sounds, Soft, Non tender, Non distended, No organomegaly - Back Back: No CVA TTP, No spinal TTP - Derm Derm: Normal color, Warm and dry, No rash - Extremities Extremities: No deformity, No edema - Neuro Neuro: No motor deficit, No sensory deficit Eye Opening: Spontaneous Motor: Obeys Commands Verbal: Confused GCS Score: 14 - Psych Psych: Other (mood is withdrawn and the affect is angry) Results - Vitals Vitals: Vital Signs - 24 hr 06/05/20 06/05/20 06/05/20 01:17 01:20 01:35 Temperature 37.3 C 37.3 C Heart Rate 119 H 119 H 118 H Respiratory 14 16 15 Rate Blood Pressure 127/91 H 128/89 H 127/81 H O2 Saturation 100 96 96 06/05/20 06/05/20 06/05/20 02:05 02:35 03:05 Temperature 37.3 C 37.3 C 37.3 C Heart Rate 129 H 123 H 111 H Respiratory 15 17 18 Rate Blood Pressure 143/90 H 143/95 H 142/90 H O2 Saturation 98 98 97 06/05/20 06/05/20 06/05/20 06:19 06:21 06:54 Temperature 37.4 C 37.4 C 37.4 C Heart Rate 107 H 106 H 104 H Respiratory 13 16 13 Rate Blood Pressure 143/88 H 143/88 H 128/83 H O2 Saturation 95 95 94 Oxygen O2 Source Room air - Labs Labs: Laboratory Tests 06/05/20 06/05/20 06/05/20 01:40 01:40 01:40 WBC 9.9 RBC 4.53 Hgb 15.9 Hct 44.8 MCV 98.9 MCH 35.1 H MCHC 35.5 RDW 11.9 L Plt Count 208 MPV 10.2 Neut # (Auto) 5.5 Lymph # (Auto) 3.7 H [place] # (Auto) 0.6 Eos # (Auto) 0.0 Baso # (Auto) 0.0 Absolute Nucleated RBC 0.00 Nucleated RBC % 0.0 Sodium 139 Potassium 3.8 Chloride 105 Carbon Dioxide 19 L Anion Gap 15.0 H BUN 5 L Creatinine 0.6 Estimated GFR (MDRD) 112 Glucose 103 H Calcium 9.0 Total Bilirubin 0.5 AST 141 H ALT 94 H Alkaline Phosphatase 59 Total Protein 8.6 H Albumin 4.4 Globulin 4.2 Albumin/Globulin Ratio 1.0 Lipase 46 TSH 2.55 Urine Color Urine Clarity Urine pH Ur Specific [place] Urine Protein Urine Glucose (UA) Urine Ketones Urine Occult Blood Urine Nitrite Urine Bilirubin Urine Urobilinogen Ur Leukocyte Esterase Ur Microscopic Review Urine Culture Comments Urine HCG, Qual Salicylates < 6.0 Urine Opiates Screen Ur Oxycodone Screen Urine Methadone Screen Ur Propoxyphene Screen Acetaminophen < 10 L Ur Barbiturates Screen Ur Tricyclics Screen Ur Phencyclidine Scrn Ur Amphetamine Screen U Methamphetamines Scrn U Benzodiazepines Scrn Urine Cocaine Screen U Cannabinoids Screen Ethyl Alcohol 434.0 06/05/20 01:47 WBC RBC Hgb Hct MCV MCH MCHC RDW Plt Count MPV Neut # (Auto) Lymph # (Auto) [place] # (Auto) Eos # (Auto) Baso # (Auto) Absolute Nucleated RBC Nucleated RBC % Sodium Potassium Chloride Carbon Dioxide Anion Gap BUN Creatinine Estimated GFR (MDRD) Glucose Calcium Total Bilirubin AST ALT Alkaline Phosphatase Total Protein Albumin Globulin Albumin/Globulin Ratio Lipase TSH Urine Color YELLOW Urine Clarity CLEAR Urine pH 6.0 Ur Specific [place] <=1.005 Urine Protein NEGATIVE Urine Glucose (UA) NEGATIVE Urine Ketones NEGATIVE Urine Occult Blood NEGATIVE Urine Nitrite NEGATIVE Urine Bilirubin NEGATIVE Urine Urobilinogen 0.2 (NORMAL) Ur Leukocyte Esterase NEGATIVE Ur Microscopic Review NOT INDICATED Urine Culture Comments NOT INDICATED Urine HCG, Qual NEGATIVE Salicylates Urine Opiates Screen NEGATIVE Ur Oxycodone Screen NEGATIVE Urine Methadone Screen NEGATIVE Ur Propoxyphene Screen NEGATIVE Acetaminophen Ur Barbiturates Screen NEGATIVE Ur Tricyclics Screen NEGATIVE Ur Phencyclidine Scrn NEGATIVE Ur Amphetamine Screen NEGATIVE U Methamphetamines Scrn NEGATIVE U Benzodiazepines Scrn NEGATIVE Urine Cocaine Screen NEGATIVE U Cannabinoids Screen NEGATIVE Ethyl Alcohol PD MEDICAL DECISION MAKING - ED course Complexity details: reviewed old records, reviewed results, re-evaluated patient, considered differential, d/w patient ED course: 39-year-old female with prior admissions to the emergency department for alcohol intoxication is again intoxicated she was found sitting [place]ic style in front of them for [employer] store yelling for help. She arrives to the emergency department with medics restrained uncooperative and unable to give any significant history. She continually yells for her motor vehicle compliance analyst. Here in the emergency department the patient is uncontrolled aggressive and requires restraint. She is administered ketamine 250 mg IM and we are able to obtain specimens when the patient awakens she is continued with unruly behavior and she is offered Zyprexa which she takes. She is given a second dose. Eventually she becomes more cooperative and is released from her restraints. She is heavily intoxicated and will need some time to metabolize. She is not suicidal or homicidal. Departure - Departure Clinical Impression: Pathological alcohol intoxication with delirium Condition: Stable Instructions: ED Alcohol Intoxication Follow-Up: Rose Patterson MD [Physician No Access] -
[2020-06-05] MEDS ORDERED: SODIUM CHLORIDE 0.9% 1,000 ML IV STA (13:45)
[2020-06-05] MEDS ORDERED: LORazepam 1 MG TABLET PO STA (13:48)
[2020-06-05 13:54] VITALS: BP 132/88
--- NOTE | 2020-06-05 13:59 | ED Physician Documentation ---
ED Addendum - Addendum Addendum: 06/05/20 13:58 Patient had rested well at the initiation of my shift and through the morning. She then awoke and was feeling very slightly jittery. Her heart rate is tachycardic. Blood pressure is softly low but not hypotensive. She states she is feeling okay sitting up. She is drinking fluids. She feels ready for discharge. I offered social work to talk with her about resources for alcohol treatment but the patient declined stating she has all the information. She is given a dose of Ativan to help with some of the early withdrawal symptoms. She is discharged stable to home. Diagnoses: 1. Alcohol intoxication with impaired level of consciousness 2. Alcoholism
== END 2020-06-05 14:47 | disposition home or self-care (01) ==
LOC: EDUNIT# → ED 01:10
DX: F10.221 Alcohol dependence with intoxication delirium (principal); F91.9 Conduct disorder, unspecified; R45.4 Irritability and anger; Z78.1 Physical restraint status; R00.0 Tachycardia, unspecified; F17.200 Nicotine dependence, unspecified, uncomplicated
CPT/HCPCS: 36415; 80053; 80306; 80307; 80320; 80329; 81003; 81025; 83690; 84443; 85025; 96372; 99281; 99285; A9270; J8499; 81001; 87086

== ENCOUNTER 2020-08-13 21:53 | Outpatient (CLI) | payer MEDICAID | END 2020-08-13 23:59 | disposition critical access hospital (66) | LOC: EMS 21:53 | PROVIDERS: ATTEND Emergency Medicine | DX: R41.82 Altered mental status, unspecified (principal); R46.89 Other symptoms and signs involving appearance and behavior | CPT/HCPCS: A0425; A0427; A0999 ==

== ENCOUNTER 2020-08-13 22:15 | Emergency (ER) | payer MEDICAID ==
[2020-08-13 23:00] VITALS: BP 96/66
--- NOTE | 2020-08-14 01:21 | ED Physician Documentation ---
History of Present Illness - Stated complaint Stated Complaint: MHE, INTOXICATED - Chief complaint Chief Complaint: MHE - History obtained from History obtained from: Patient, EMS - History of Present Illness Timing: Today - Additonal information Additional information: 39-year-old female is apprehended by police acting bizarrely and significantly intoxicated. She is slurring her speech so much that she is unable to care for herself. She is brought to the emergency department by paramedics with a police affidavit indicating grave disability. The patient denies any homicidal or suicidal ideation. Review of Systems Unable to obtain: Intoxicated Constitutional: denies: Fever Respiratory: denies: Cough GI: denies: Vomiting PD PAST MEDICAL HISTORY - Past Medical History Cardiovascular: None Respiratory: None Neuro: None Endocrine/Autoimmune: None GI: None PATIENT FINANCIAL REP: None : None HEENT: None Psych: None Musculoskeletal: None Derm: None - Past Surgical History Past Surgical History: Yes General: Other - Present Medications Home Medications: Ambulatory Orders Medication Instructions Recorded Confirmed Ibuprofen 600 mg PO PRN PRN 11/05/17 11/05/17 Promethazine [Phenergan] 25 mg PO Q6H PRN #30 tab 03/20/18 chlordiazePOXIDE [Librium] 25 mg PO TID PRN #20 capsule 03/20/18 - Allergies Allergies/Adverse Reactions: Allergies Allergy/AdvReac Type Severity Reaction Status Date / Time amoxicillin Allergy Unknown Unknown Verified 08/13/20 22:31 - Social History Does the pt smoke?: Yes Smoking Status: Current every day smoker Does the pt drink ETOH?: Yes Does the pt have substance abuse?: No - Immunizations Immunizations are current?: Yes - POLST Patient has POLST: No PD ED PE NORMAL - Vitals Vital signs reviewed: Yes (.Normal) - General General: No acute distress, Well developed/nourished, Other (Sleeping soundly.) - HEENT HEENT: Atraumatic, PERRL, EOMI, Other (AoB) - Neck Neck: Supple, no meningeal sign, No bony TTP - Cardiac Cardiac: RRR, No murmur - Respiratory Respiratory: No respiratory distress, Clear bilaterally - Derm Derm: Normal color, Warm and dry - Extremities Extremities: No deformity, No edema - Neuro Neuro: karate black belt 2-12 intact, No motor deficit, No sensory deficit, Other (Speech is slurred consistent with intoxication) Eye Opening: Spontaneous Motor: Obeys Commands Verbal: Oriented GCS Score: 15 - Psych Psych: Other (The mood and affect are labile and there is appearance of intoxication) Results - Vitals Vitals: Vital Signs - 24 hr 08/13/20 08/13/20 22:22 22:59 Temperature 35.1 C L Heart Rate 95 90 Respiratory 14 14 Rate Blood Pressure 112/72 96/66 O2 Saturation 95 95 Oxygen O2 Source Nasal cannula PD MEDICAL DECISION MAKING - ED course Complexity details: considered differential, d/w patient ED course: 39-year-old female presents to the emergency department again with alcohol intoxication delirium. Prior to arrival she had been given Versed 5 mg in the ambulance and on arrival patient was unable to provide any history and slept comfortably. When she awoke she began to fidget and began to ask to be released. She repeatedly asked to be released and appeared too intoxicated. She is eventually released when she is able to communicate effectively and ambulate to and from the bathroom without difficulty. Her possessions were searched and there were no more alcohol containers present. Departure - Departure Disposition: 01 Home, Self Care Clinical Impression: Pathological alcohol intoxication with delirium Instructions: ED Alcohol Intoxication Follow-Up: Rose Patterson MD [Primary Care Provider] - Discharge Date/Time: 08/14/20 01:25
== END 2020-08-14 01:25 | disposition home or self-care (01) ==
LOC: EDUNIT# → SUPCPDRO 22:15 → ED 22:15
DX: F10.921 Alcohol use, unspecified with intoxication delirium (principal); F17.200 Nicotine dependence, unspecified, uncomplicated
CPT/HCPCS: 99282; 99283

== ENCOUNTER 2020-10-11 | Outpatient (CLI) | payer MEDICAID | END 2020-10-11 08:59 | disposition critical access hospital (66) | DX: R51.9 Headache, unspecified (principal) | CPT/HCPCS: A0425; A0429; A0999 ==

== ENCOUNTER 2020-10-11 09:15 | Emergency (ER) | payer MEDICAID ==
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
--- NOTE | 2020-10-11 09:57 | CT Report ---
PROCEDURE: CERVICAL SPINE WO INDICATIONS: etoh, possible fall TECHNIQUE: Noncontrast 3 mm thick sections acquired from the skull base to the T4 level. Sagittal and coronal r eformats were then constructed. For radiation dose reduction, the following was used: automated exp osure control, adjustment of mA and/or kV according to patient size. COMPARISON: Comparison is made with cervical spine CT studies 09/06/2019, 03/20/2018, and 06/12/2016. C orrelation is made with the accompanying head CT, 10/11/2020. Correlation is also made with the accomp anying chest radiograph, 10/11/2020. FINDINGS: Image quality: Excellent. Bones: No fractures or dislocations. Visualized superior ribs are intact. Soft tissues: Prevertebral soft tissues are normal in thickness. No paravertebral hematomas. No ap ical pneumothoraces. IMPRESSION: Normal cervical spine CT. Stable from prior. Reviewed by: Dae Diamond MD on 10/11/2020 8:56 AM RUTH Approved by: Dae Diamond MD on 10/11/2020 8:56 AM AKRODNEY Station ID: [id number]
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
[2020-10-11 10:51] VITALS: BP 143/83
== END 2020-10-11 10:51 | disposition home or self-care (01) ==
LOC: EDUNIT# → ED 09:15
DX: F10.10 Alcohol abuse, uncomplicated (principal); F17.200 Nicotine dependence, unspecified, uncomplicated
CPT/HCPCS: 99281; 99284

== ENCOUNTER 2020-12-17 15:04 | Outpatient (CLI) | payer MEDICAID | END 2020-12-17 15:05 | disposition EMS.NT | LOC: EMS 15:04 | DX: M62.830 Muscle spasm of back (principal) ==

== ENCOUNTER 2020-12-19 18:16 | Outpatient (CLI) | payer MEDICAID | END 2020-12-19 18:17 | disposition critical access hospital (66) | LOC: EMS 18:16 | PROVIDERS: ATTEND Emergency Medicine | DX: M54.2 Cervicalgia (principal); R51.9 Headache, unspecified | CPT/HCPCS: A0425; A0429 ==

== ENCOUNTER 2020-12-19 18:40 | Emergency (ER) | payer MEDICAID ==
[2020-12-19] MEDS ORDERED: SODIUM CHLORIDE 0.9% 1,000 ML IV STA (19:43)
--- NOTE | 2020-12-19 19:58 | CT Report ---
PROCEDURE: CERVICAL SPINE WO INDICATIONS: fall, neck pain x 4 days TECHNIQUE: Noncontrast 3 mm thick sections acquired from the skull base to the T4 level. Sagittal and coronal r eformats were then constructed. For radiation dose reduction, the following was used: automated exp osure control, adjustment of mA and/or kV according to patient size. COMPARISON: 10/11/2020 FINDINGS: Image quality: Excellent. Bones: No fractures or dislocations. Visualized superior ribs are intact. Soft tissues: Prevertebral soft tissues are normal in thickness. No paravertebral hematomas. No ap ical pneumothoraces. IMPRESSION: No CT evidence of acute traumatic cervical spine injury. Reviewed by: Esteban Rangel MD on 12/19/2020 7:57 PM PDT Approved by: Esteban Rangel MD on 12/19/2020 7:57 PM PDT Station ID: [id number]
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
--- NOTE | 2020-12-19 20:07 | CT Report ---
PROCEDURE: HEAD WO INDICATIONS: Trauma, fall, headache TECHNIQUE: Noncontrast 4.5 mm thick angled axial sections acquired from the foramen magnum to the vertex. For r adiation dose reduction, the following was used: automated exposure control, adjustment of mA and/or kV according to patient size. COMPARISON: None. FINDINGS: There is an acute subdural hematoma overlying the left cerebral convexity measuring approximately 3 m m in maximum thickness. Mild mass effect upon the subjacent parenchyma. No ventricular effacement or cisternal effacement. No subfalcine herniation. No acute parenchymal hemorrhage identified. Rosales-whit e matter differentiation is maintained. IMPRESSION: Small acute subdural hematoma overlying the left cerebral convexity. Close clinical follow-up and per [facility] imaging follow-up recommended to document stability. Mildly displaced bilateral nasal bone fractures. Findings were discussed with Dr. Carlisle at 8:00 PM on 12/19/2020. Reviewed by: Esteban Rangel MD on 12/19/2020 8:05 PM PDT Approved by: Esteban Rangel MD on 12/19/2020 8:05 PM PDT Station ID: [id number]
--- NOTE | 2020-12-19 20:07 | CT Report ---
PROCEDURE: MAXILLOFACIAL WO INDICATIONS: fall, face pain x 4 days TECHNIQUE: Noncontrast 1.5 mm thick axial images acquired from the mandible through the frontal sinuses, with co ira and sagittal reformatting. For radiation dose reduction, the following was used: automated ex posure control, adjustment of mA and/or kV according to patient size. COMPARISON: None. FINDINGS: Mildly displaced bilateral nasal bone fractures. Remaining osseous structures are intact. No acute so ft tissue finding. No gross orbital abnormality. Visualized upper cervical spine is normal alignment. IMPRESSION: Mildly displaced bilateral nasal bone fractures. Reviewed by: Esteban Rangel MD on 12/19/2020 8:06 PM PDT Approved by: Esteban Rangel MD on 12/19/2020 8:06 PM PDT Station ID: [id number]
[2020-12-19 20:09] LABS: BASOPHILS % (AUTO) 0.5 %; EOSINOPHILS % (AUTO) 0.3 %; HCT - HEMATOCRIT 42.2 % (37.0-47.0); HGB - HEMOGLOBIN 15.4 g/dL (12.0-16.0); LYMPHOCYTES % (AUTO) 26.4 %; MEAN CORPUSCULAR HEMOGLOBIN 35.2 pg (27.0-31.0); MEAN CORPUSCULAR HGB CONC 36.5 g/dL (32.0-36.0); MEAN CORPUSCULAR VOLUME 96.6 fL (81.0-99.0); MEAN PLATELET VOLUME 10.8 fL (7.9-10.8); MONOCYTES # (AUTO) 0.5 10^3/uL (0.0-1.0); MONOCYTES % (AUTO) 13.8 %; NEUTROPHILS # (AUTO) 2.3 10^3/uL (1.5-6.6); NEUTROPHILS % (AUTO) 58.7 %; PLT - PLATELET COUNT 48 10^3/uL (130-450); RED BLOOD COUNT 4.37 10^6/uL (4.20-5.40); RED CELL DISTRIBUTION WIDTH 11.6 % (12.0-15.0); WHITE BLOOD COUNT 3.9 x10^3/uL (4.8-10.8)
[2020-12-19 20:14] LABS: PT - PROTHROMBIN TIME 10.8 secs (9.9-12.6)
[2020-12-19] MEDS ORDERED: NICOTINE 14 MG PATCH TOP STA (20:23)
[2020-12-19 20:29] LABS: ALBUMIN 3.8 g/dL (3.2-5.5); BILIRUBIN,TOTAL 0.9 mg/dL (0.2-1.0); CALCIUM 9.1 mg/dL (8.5-10.3); CREATININE 0.3 mg/dL (0.4-1.0); ETOH - ETHANOL 417.9 mg/dL; POTASSIUM 3.5 mmol/L (3.5-5.0); TOTAL PROTEIN 7.7 g/dL (6.7-8.2)
[2020-12-19 21:05] LABS: B. PARAPERTUSSIS- RESP PCR PAN NOT DETECTED; B. PERTUSSIS- RESP PCR PANEL NOT DETECTED; C. PNEUMONIAE- RESP PCR PANEL NOT DETECTED; CORONAVIRUS 229E-RESP PCR NOT DETECTED; CORONAVIRUS HKU1-RESP PCR NOT DETECTED; CORONAVIRUS NL63-RESP PCR NOT DETECTED; CORONAVIRUS OC43-RESP PCR NOT DETECTED; HUMAN METAPNEUMOVIRUS NOT DETECTED; INFLUENZA A- RESP PCR PANEL NOT DETECTED; INFLUENZA B - RESP PCR PANEL NOT DETECTED; M. PNEUMONIAE- RESP PCR PANEL NOT DETECTED; PARAINFLUENZA VIRUS 1 NOT DETECTED; PARAINFLUENZA VIRUS 2 NOT DETECTED; PARAINFLUENZA VIRUS 3 NOT DETECTED; PARAINFLUENZA VIRUS 4 NOT DETECTED; RHINOVIRUS/ENTEROVIRUS NOT DETECTED; RSV- RESP PCR PANEL NOT DETECTED; SARS-CoV-2 -RESP PCR PANEL NOT DETECTED
[2020-12-19 22:04] VITALS: BP 124/88
== END 2020-12-19 21:55 | disposition short-term general hospital (02) ==
LOC: EDUNIT# → ED 18:40
DX: S06.5X0A Traumatic subdural hemorrhage without loss of consciousness, initial encounter (principal); S02.2XXA Fracture of nasal bones, initial encounter for closed fracture; S00.83XA Contusion of other part of head, initial encounter; W10.9XXA Fall (on) (from) unspecified stairs and steps, initial encounter; F10.229 Alcohol dependence with intoxication, unspecified; D69.6 Thrombocytopenia, unspecified; R74.8 Abnormal levels of other serum enzymes; I10 Essential (primary) hypertension; Z20.822 Contact with and (suspected) exposure to COVID-19; F17.200 Nicotine dependence, unspecified, uncomplicated
CPT/HCPCS: 0202U; 36415; 70450; 70486; 72125; 80053; 80320; 83690; 85025; 85610; 85730; 96360; 96361; 99284; 99285; A9270

== ENCOUNTER 2020-12-19 22:00 | Outpatient (CLI) | payer MEDICAID | END 2020-12-19 22:01 | disposition short-term general hospital (02) | LOC: EMS 22:00 | PROVIDERS: ATTEND Emergency Medicine | DX: I62.00 Nontraumatic subdural hemorrhage, unspecified (principal) | CPT/HCPCS: A0425; A0428 ==

== ENCOUNTER 2020-12-30 10:05 | Outpatient (CLI) | payer MEDICAID | END 2020-12-30 10:06 | disposition critical access hospital (66) | LOC: EMS 10:05 | DX: R51.9 Headache, unspecified (principal) | CPT/HCPCS: A0425; A0429; A0999 ==

== ENCOUNTER 2020-12-30 10:25 | Emergency (ER) | payer MEDICAID ==
--- NOTE | 2020-12-30 11:00 | ED Physician Documentation ---
PD HPI HEADACHE - Stated complaint Stated Complaint: HEADACHE - Chief complaint Chief Complaint: Neuro - History obtained from History obtained from: Patient - History of Present Illness Timing - onset: How many days ago (has had increased headache for 3 days. Recent head injury with ICH and transferred to [facility]. Stable scans and discharged on 1 week Keppra, TYlenol PRN. No other Rx meds. Pt states Tylenol not helping welll and headache worse the past 3 days. No new injury.) Timing - details: Abrupt onset (onset headache with head injury and has been undulating severity, worse with activity.), Waxing and waning Worst headache ever?: No: Worst headache ever? Location: Left Quality: Throbbing, Aching Associated symptoms: No: Fever, Stiff neck, Nausea, Vomiting, Weakness, Numbness Worsened by: No: Light, Noise Contributing factors: Trauma. 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 : None HEENT: None Psych: None Musculoskeletal: None Derm: None - Past Surgical History Past Surgical History: Yes General: Other - Present Medications Home Medications: Ambulatory Orders Medication Instructions Recorded Confirmed HYDROcod/ACETAM 5/325 [[place] 5/325] 1 ea PO Q6H PRN #14 tablet 12/30/20 Meloxicam [Mobic] 7.5 mg PO DAILY 10 Days #10 tablet 12/30/20 - Allergies Allergies/Adverse Reactions: Allergies Allergy/AdvReac Type Severity Reaction Status Date / Time amoxicillin Allergy Unknown Unknown Verified 12/30/20 10:43 - Living Situation Living Situation: reports: Alone Living Arrangement: reports: Unknown - Social History Does the pt smoke?: Yes Smoking Status: Current every day smoker Does the pt drink ETOH?: Yes Does the pt have substance abuse?: Yes - Immunizations Immunizations are current?: No Immunizations: TDAP current <10years - POLST Patient has POLST: No PD ED PE NORMAL - Vitals Vital signs reviewed: Yes - General General: Alert and oriented X 3, No acute distress, Well developed/nourished - HEENT HEENT: PERRL, EOMI, Other (purple/green bruising noted around eyes and forehead. 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 disposal specialist 2-12 intact, No motor deficit, No sensory deficit, Normal speech, Other Eye Opening: Spontaneous Motor: Obeys Commands Verbal: Oriented GCS Score: 15 Results - Vitals Vitals: Vital Signs - 24 hr 12/30/20 12/30/20 12/30/20 10:35 11:30 13:42 Temperature 36 C L Heart Rate 94 80 91 Respiratory 16 16 16 Rate Blood Pressure 120/82 H 105/70 101/69 O2 Saturation 95 95 91 L 12/30/20 14:00 Temperature Heart Rate 82 Respiratory 16 Rate Blood Pressure 100/70 O2 Saturation 97 Oxygen O2 Source Room air - Rads (name of study) head CT Radiology: Prelim report reviewed, Discussed with rads (similar ICH left parietal subdural, slightly smaller, but some white brightness that concerned Radiologist about new on old bleeding. ), See rad report PD MEDICAL DECISION MAKING - ED course Complexity details: reviewed results, considered differential (recent head injury with ICH that was stable on repeat scans, so discharged. She denies new injury. Has persistent headaches. No focal weakness. ), d/w patient, d/w distributed energy systems consultant (Neurosurgery at [facility] after he got out of surgery (couple hour wait) and he reviewed the CTs and feels that it is a stable improvement and not appearing new bleeding. ) Departure - Departure Disposition: 01 Home, Self Care Clinical Impression: Persistent headache due to and not concurrent with injury of head Condition: Stable Record reviewed to determine appropriate education?: Yes Prescriptions: Meloxicam [Mobic] 7.5 mg PO DAILY 10 Days #10 tablet HYDROcod/ACETAM 5/325 [[place] 5/325] 1 ea PO Q6H PRN #14 tablet PRN Reason: Pain Comments: Your CT scan showed slow improvements of the blood around your brain. I talked with the neurosurgeon at [facility] and he feels the imaging is improved appropriately from the prior images. You can use anti-inflammatory such as meloxicam daily. To that add Tylenol or hydrocodone every 6 hours if needed for pains. Activity as tolerated based on headache. Stay well-hydrated. Reduce your alcohol use. Follow up with your primary care provider in a week, call for appt. I am prescribing a short course of narcotic pain medication for you. These are potentially dangerous and addictive medications that should be used carefully. These medications may constipate you. Take an lqik-riw-ouurmok stool softener such as docusate twice daily with plenty of water while taking these medications. If you go 24 hours without a bowel movement, take itan-wmi-ohgsvqy MiraLAX, per package instructions. Do not drink or drive while taking these medications. If you received narcotic or sedating medications while in the emergency department do not drive for 24 hours. Store this medication in a safe, secure place and out of reach of children. It is a violation of federal law to give or sell this medication to another person or to use in a manner other than prescribed. The ED will not refill narcotic prescriptions, including prescriptions lost or stolen. You can dispose of unwanted medications at the [facility]'s office or at several pharmacies such as [facility]. Discharge Date/Time: 12/30/20 15:05
[2020-12-30] MEDS ORDERED: KETOROLAC 15 MG/ML VIAL IM STA (11:20)
[2020-12-30] MEDS ORDERED: ACETAMINOPHEN 325 MG TABLET PO STA (11:20)
--- NOTE | 2020-12-30 12:09 | CT Report ---
PROCEDURE: HEAD WO INDICATIONS: continued headache s/p ICH recently TECHNIQUE: Noncontrast 4.5 mm thick angled axial sections acquired from the foramen magnum to the vertex. For r adiation dose reduction, the following was used: automated exposure control, adjustment of mA and/or kV according to patient size. COMPARISON: None. FINDINGS: Image quality: Excellent. The ventricular system and cortical sulci are normal for patient's stated age. There is hyperdense e xtra-axial focus within the left frontal temporal region. In addition, isodense focus is in the low e xtra-axial region of the left frontal lobe. It is noted the patient had an acute subdural hematoma on 12/19/2020 within the similar regions. Portions of the more anterior inferior aspect appear to demons trate expected changes for resorption of acute hemorrhage. However, there is persistent hyperdensity within the more posterior aspect with the largest segment measuring approximately 3.3 x 0.5 cm. There is no midline shift. Globes are symmetrical. Sinuses are aerated. Osseous structures are intact. IMPRESSION: 1. Extra-axial hyperdensity as described above felt likely to represent acute on subacute hemorrhage. No midline shift. The above findings were discussed with Dr. Emigdio Mckenzie on 04/01/2021 at 12:05 PM. Reviewed by: Lea Land MD on 12/30/2020 12:07 PM PDT Approved by: Lea Land MD on 12/30/2020 12:07 PM PDT Station ID: [id number]
[2020-12-30] MEDS ORDERED: HYDROcod/ACETAM 5/325 MG TABLET PO STA (14:53)
[2020-12-30 15:44] VITALS: BP 100/70
== END 2020-12-30 15:05 | disposition home or self-care (01) ==
LOC: EDUNIT# → ED 10:25
DX: R51.9 Headache, unspecified (principal); F17.200 Nicotine dependence, unspecified, uncomplicated; Z86.79 Personal history of other diseases of the circulatory system
CPT/HCPCS: 70450; 96372; 99284; A9270

== ENCOUNTER 2021-01-07 15:16 | Emergency (ER) | payer MEDICAID ==
[2021-01-07 15:38] VITALS: BP 149/97
--- NOTE | 2021-01-07 16:37 | ED Physician Documentation ---
History of Present Illness - Stated complaint Stated Complaint: RAMIREZ,NOSE PX - Chief complaint Chief Complaint: Neuro - Additonal information Additional information: 40-year-old female well-known to this emergency department for history of alc ohol use presents to the emergency department for evaluation of a headache. She denies any recent falls or trauma. She admits to heavy drinking today. She unfortunately sustained a subdural hematoma on 24 December and was transferred to [facility]. She was observed there no specific treatment was rendered and she was discharged home. She again presented to this emergency department on 30 December with a headache. Repeat head CT was unchanged. Patient presented to the walk-in clinic today but was advised to come to the ER. She denies any falls or trauma. No vision changes, no fevers nausea or vomiting. She does appear to be at her baseline health though is obviously intoxicated. Review of Systems Constitutional: denies: Fever, Chills Eyes: reports: Reviewed and negative Ears: reports: Reviewed and negative Nose: reports: Reviewed and negative Throat: reports: Reviewed and negative Cardiac: reports: Reviewed and negative Respiratory: reports: Reviewed and negative GI: reports: Reviewed and negative Skin: reports: Reviewed and negative Musculoskeletal: reports: Reviewed and negative Neurologic: reports: Headache. 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 HEENT: None Psych: None Musculoskeletal: None Derm: None - Past Surgical History Past Surgical History: Yes General: Other - Present Medications Home Medications: Ambulatory Orders Medication Instructions Recorded Confirmed HYDROcod/ACETAM 5/325 [[place] 5/325] 1 ea PO Q6H PRN #14 tablet 12/30/20 Meloxicam [Mobic] 7.5 mg PO DAILY 10 Days #10 tablet 12/30/20 - Allergies Allergies/Adverse Reactions: Allergies Allergy/AdvReac Type Severity Reaction Status Date / Time amoxicillin Allergy Unknown Unknown Verified 01/07/21 15:33 - Social History Does the pt smoke?: Yes Smoking Status: Current every day smoker Does the pt drink ETOH?: Yes Does the pt have substance abuse?: Yes - Immunizations Immunizations are current?: No Immunizations: TDAP current <10years - POLST Patient has POLST: No PD ED PE EXPANDED - General General: Alert, No acute distress - Neck Neck: Supple w/out meningeal sx. No: Adenopathy - Cardiac Cardiac: Regular Rate, Radial strong equal, Pedal strong equal, Cap refill < 2 sec. No: Murmur Present - Respiratory Respiratory: Clear to ausultation faizan. No: Distress, Labored - Abdomen Abdomen: Normal Bowel sounds. No: Tender to palpation - Extremities Extremities: Normal. No: Deformity, Tenderness - Neuro Neuro: Alert and Oriented X 3, CNII-XII intact - GCS Eye Opening: Spontaneous Motor: Obeys Commands Verbal: Oriented Total: 15 Results - Vitals Vitals: Vital Signs - 24 hr 01/07/21 15:33 Temperature 36.5 C Heart Rate 118 H Respiratory 16 Rate Blood Pressure 149/97 H O2 Saturation 98 Oxygen O2 Source Room air - Rads (name of study) CT head Radiology: Final report received (Resolving left subdural hemorrhage without acute components identified.) PD MEDICAL DECISION MAKING - ED course Complexity details: reviewed results, d/w patient ED course: 40-year-old female well-known to this emergency department presents emergency department for evaluation of a headache. She unfortunately sustained a left- sided subdural hematoma on 24 December was transferred [facility]. She is subsequently followed up here on 30 December with improving subdural. Presented to walk-in clinic today complaint of frontal headache. She is an active daily drinker and does present here intoxicated. CT of the head today however shows a resolving left subdural hematoma without any acute components identified. Patient is discharged home. Emergent return precautions discussed. Departure - Departure Disposition: 01 Home, Self Care Clinical Impression: SDH (subdural hematoma) Condition: Stable Record reviewed to determine appropriate education?: Yes Comments: Azul in the subdural hematoma in your brain is resolving and getting better. If you develop any sudden severe headache have uncontrolled vomiting slurred speech or droopy face please return immediately to the ER for a second look. Continue to follow-up with your primary care provider and neurosurgery as already recommended by [facility].
--- NOTE | 2021-01-07 17:11 | CT Report ---
PROCEDURE: HEAD WO INDICATIONS: recent ICH; TECHNIQUE: Noncontrast 4.5 mm thick angled axial sections acquired from the foramen magnum to the vertex. For r adiation dose reduction, the following was used: automated exposure control, adjustment of mA and/or kV according to patient size. COMPARISON: 1121, 12/19/2020, 10/11/2020, 09/06/2019 FINDINGS: Image quality: There is streak artifact seen through the skull base. CSF spaces: Basal cisterns are patent. Ventricles are normal in size and shape. Brain: There is a small amount of resolving left extra-axial hemorrhage seen, which measures 5 mm in thickness. No hyperdense component can be seen to suggest acute hemorrhage. No midline shift. No intracranial masses or hemorrhage. Rosales-white matter interface is normal. Skull and face: Calvarium and visualized facial bones are intact, without suspicious lesions. Impac raiza maxillary teeth are partially seen posteriorly. Sinuses: Visualized sinuses and mastoids are clear. IMPRESSION: Resolving left subdural hemorrhage, without acute components identified. Reviewed by: Dae Diamond MD on 01/07/2021 4:09 PM RUTH Approved by: Dae Diamond MD on 01/07/2021 4:09 PM RUTH Station ID: [id number]
== END 2021-01-07 17:21 | disposition home or self-care (01) ==
LOC: ED 15:16
DX: S06.5X9D Traumatic subdural hemorrhage with loss of consciousness of unspecified duration, subsequent encounter (principal); X58.XXXD Exposure to other specified factors, subsequent encounter; F10.129 Alcohol abuse with intoxication, unspecified; F17.200 Nicotine dependence, unspecified, uncomplicated
CPT/HCPCS: 99283; 99284

== ENCOUNTER 2021-01-27 15:52 | Emergency (ER) | payer MEDICAID ==
[2021-01-27 16:01] VITALS: BP 121/82
[2021-01-27] MEDS ORDERED: ONDANSETRON ODT 4 MG TABLET TL STA (16:13)
[2021-01-27] MEDS ORDERED: ACETAMINOPHEN 325 MG TABLET PO STA (16:13)
--- NOTE | 2021-01-27 16:15 | ED Physician Documentation ---
PD HPI HEADACHE - Stated complaint Stated Complaint: HEAD PX - Chief complaint Chief Complaint: Neuro - History obtained from History obtained from: Patient - Additional information Additional information: 40-year-old woman with history of alcoholism presents by private vehicle for reevaluation of her head feeling heavy. She is intoxicated so history is slightly limited although this seems to be her baseline, looking back in the chart, she never seems to have a blood alcohol below 400 at least on the last few times it was checked. She suffered an injury on December 19 and was sent to [facility]. She had a small left cerebral subdural hemorrhage that was treated conservatively without surgery. She presents today for continued headaches and feeling like her head is heavy especially when she plays video games. She admits to ongoing alcohol abuse and admits to alcoholism although declines to speak with the social economist today about that. When queried if there was repeat trauma she states she did hit her head on the refrigerator door maybe a week ago but the mechanism was minor. 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 HEENT: None Psych: None Musculoskeletal: None Derm: None - Past Surgical History Past Surgical History: Yes General: Other - Present Medications Home Medications: Ambulatory Orders Medication Instructions Recorded Confirmed HYDROcod/ACETAM 5/325 [[place] 5/325] 1 ea PO Q6H PRN #14 tablet 12/30/20 Meloxicam [Mobic] 7.5 mg PO DAILY 10 Days #10 tablet 12/30/20 - Allergies Allergies/Adverse Reactions: Allergies Allergy/AdvReac Type Severity Reaction Status Date / Time amoxicillin Allergy Unknown Unknown Verified 01/07/21 15:33 - Social History Does the pt smoke?: Yes Smoking Status: Current every day smoker Does the pt drink ETOH?: Yes Does the pt have substance abuse?: Yes - Immunizations Immunizations are current?: No Immunizations: TDAP current <10years - POLST Patient has POLST: No PD ED PE NORMAL - Vitals Vital signs reviewed: Yes - General General: Alert and oriented X 3, Other (Labile mood times laughing but then quickly going to tearful. Smells of alcohol and tobacco. 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 She declined to talk to the social economist or consider detox at this juncture but counseled that alcohol is definitely a major problem in her life. Departure - Departure Disposition: 01 Home, Self Care Clinical Impression: Alcohol intoxication Qualifiers: Complication of substance-induced condition: uncomplicated Qualified Code(s): F10.920 - Alcohol use, unspecified with intoxication, uncomplicated Head injury Qualifiers: Encounter type: initial encounter Qualified Code(s): S09.90XA - Unspecified injury of head, initial encounter Condition: Good Record reviewed to determine appropriate education?: Yes Instructions: ED Alcohol Intoxication Comments: Call your doctor to arrange a follow-up appointment, make the next available appointment. In the interim, return anytime if worse or if new symptoms develop. Discharge Date/Time: 01/27/21 17:00
--- NOTE | 2021-01-27 16:58 | CT Report ---
PROCEDURE: HEAD WO INDICATIONS: head inj, recent subdural, etoh TECHNIQUE: Noncontrast 4.5 mm thick angled axial sections acquired from the foramen magnum to the vertex. For r adiation dose reduction, the following was used: automated exposure control, adjustment of mA and/or kV according to patient size. COMPARISON: 09/07/2020 and 12/30/2020. FINDINGS: Image quality: Excellent. CSF spaces: Basal cisterns are patent. No extra-axial fluid collections. Ventricles are normal in size and shape. Brain: No midline shift. No intracranial masses or hemorrhage. Previously identified left-sided sub dural hematoma has resolved. Rosales-white matter interface is normal. Skull and face: Calvarium and visualized facial bones are intact, without suspicious lesions. Sinuses: Visualized sinuses and mastoids are clear. IMPRESSION: No acute intracranial disease process. Reviewed by: Carla Ahuja MD, PhD on 01/27/2021 4:56 PM PDT Approved by: Carla Ahuja MD, PhD on 01/27/2021 4:56 PM PDT Station ID: [id number]
== END 2021-01-27 17:00 | disposition home or self-care (01) ==
LOC: ED 15:52
DX: S09.90XA Unspecified injury of head, initial encounter (principal); W22.8XXA Striking against or struck by other objects, initial encounter; F10.229 Alcohol dependence with intoxication, unspecified; Z87.820 Personal history of traumatic brain injury; I10 Essential (primary) hypertension; F17.200 Nicotine dependence, unspecified, uncomplicated
CPT/HCPCS: 70450; 99283; 99284; A9270; Q0162

== ENCOUNTER 2021-03-27 15:36 | Outpatient (CLI) | payer MEDICAID | END 2021-03-27 15:37 | disposition critical access hospital (66) | LOC: EMS 15:36 | DX: H53.8 Other visual disturbances (principal); R11.2 Nausea with vomiting, unspecified; R51.9 Headache, unspecified; M54.2 Cervicalgia | CPT/HCPCS: A0425; A0429; A0999 ==

== ENCOUNTER 2021-03-27 15:55 | Emergency (ER) | payer MEDICAID ==
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
--- NOTE | 2021-03-27 17:15 | CT Report ---
PROCEDURE: HEAD WO INDICATIONS: ? fall; right occipital hematoma; hx of ICH TECHNIQUE: Noncontrast 4.5 mm thick angled axial sections acquired from the foramen magnum to the vertex. For r adiation dose reduction, the following was used: automated exposure control, adjustment of mA and/or kV according to patient size. COMPARISON: None. FINDINGS: Image quality: Excellent. CSF spaces: Basal cisterns are patent. No extra-axial fluid collections. Ventricles are normal in size and shape. Brain: No recurrent intracranial hemorrhage can be seen. No midline shift. No intracranial masses. Rosales-white matter interface is normal. Skull and face: Overlying the right occipital region, there is a relatively prominent scalp hematoma seen. No associated calvarial fracture can be seen. Remote, stable nasal bone fractures are seen. Calvarium and visualized facial bones are intact, witho ut suspicious lesions. Sinuses: Visualized sinuses and mastoids are clear. IMPRESSION: Right occipital scalp soft tissue hemorrhage is seen, without associated calvarial fract ure. No associated intracranial hemorrhage can be seen. Remote, stable nasal bone fractures are incidentally noted. Reviewed by: Dae Diamond MD on 03/27/2021 4:14 PM RUTH Approved by: Dae Diamond MD on 03/27/2021 4:14 PM RUTH Station ID: [id number]
[2021-03-27 17:55] VITALS: BP 106/66
== END 2021-03-27 17:59 | disposition home or self-care (01) ==
LOC: EDUNIT# → SUPCPDRO 15:55 → ED 15:55
DX: S00.03XA Contusion of scalp, initial encounter (principal); X58.XXXA Exposure to other specified factors, initial encounter; F10.129 Alcohol abuse with intoxication, unspecified; I10 Essential (primary) hypertension; F17.200 Nicotine dependence, unspecified, uncomplicated
CPT/HCPCS: 99282; 99284

== ENCOUNTER 2021-04-15 21:14 | Outpatient (CLI) | payer MEDICAID | END 2021-04-15 23:59 | disposition critical access hospital (66) | LOC: EMS 21:14 | DX: M79.645 Pain in left finger(s) (principal) | CPT/HCPCS: A0425; A0429 ==

== ENCOUNTER 2021-04-15 21:30 | Emergency (ER) | payer MEDICAID ==
[2021-04-15 21:43] VITALS: BP 120/67
--- NOTE | 2021-04-15 21:49 | ED Physician Documentation ---
History of Present Illness - Stated complaint Stated Complaint: L FINGER PAIN - Chief complaint Chief Complaint: General - History obtained from History obtained from: Patient, EMS - History of Present Illness Timing: Other (chief complaint is unclear and thus no time of onset can be established (see narrative below)) - Additonal information Additional information: [place]. Per EMS, she went into a [facility] and asked that an ambulance be called for her. EMS have been unable to ascertain a clear chief complaint from patient. On my HPI, patient has slurred speech and is unable to provide any clear medical complaint when I ask her why she asked for an ambulance. She is emotionally labile during my attempts at HPI; she is crying at times and will then suddenly become angry with me. 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 : None HEENT: None Psych: None Musculoskeletal: None Derm: None - Past Surgical History Past Surgical History: Yes General: Other - Present Medications Home Medications: Ambulatory Orders Medication Instructions Recorded Confirmed No Known Home Medications 03/27/21 04/15/21 - Allergies Allergies/Adverse Reactions: Allergies Allergy/AdvReac Type Severity Reaction Status Date / Time amoxicillin Allergy Unknown Unknown Verified 04/15/21 21:55 - Social History Does the pt smoke?: Yes Smoking Status: Current every day smoker Does the pt drink ETOH?: Yes Does the pt have substance abuse?: Yes - Immunizations Immunizations are current?: No Immunizations: TDAP current <10years - POLST Patient has POLST: No PD ED PE NORMAL - Vitals Vital signs reviewed: Yes - General General: Well developed/nourished, Other (emotionally labile; crying at times, but frequently yelling at staff, accusing staff of talking about her and other patients) - HEENT HEENT: Other (faint bruise/echymosis to chin without bony tenderness) - Neck Neck: No bony TTP - Cardiac Cardiac: RRR, No murmur - Respiratory Respiratory: No respiratory distress, Clear bilaterally - Extremities Extremities: No edema Results - Vitals Vitals: Oxygen O2 Source Room air PD MEDICAL DECISION MAKING - ED course Complexity details: reviewed old records, considered differential, d/w patient ED course: patient is brought by ambulance after she requested an employee at [facility] call 911 for her. She has a strong odor on her breath s/o alcohol and her speech is heavily slurred. She has over 20 [facility] ED visits , most of which are related to acute alcohol intoxication. In trying to ascertain her acute medical concerns, she is heavily slurred and brings up previous injuries and problems without providing any new/acute concerns she has. I asked her to stay in ED until she kevin to the point that we can have a productive discussion regarding any medical concerns she has at this time that I can attempt to address from an emergency standpoint. There are no findings on my exam to suggest need for emergent testing. She subsequently became increasingly loud, yelling frequently that she wanted to leave and then demanding to leave. When I again explain to her that I would prefer she stay until she is sober, she refuses. I do not have sufficient cause to hold patient in ED against her will and thus she is given discharge instructions. She then became belligerent because she is not being provided a means of getting back home; she is subsequently escorted by security to ED waiting room. Departure - Departure Disposition: 01 Home, Self Care Clinical Impression: Alcohol intoxication Qualifiers: Complication of substance-induced condition: uncomplicated Qualified Code(s): F10.920 - Alcohol use, unspecified with intoxication, uncomplicated Condition: Good Instructions: ED Alcohol Intoxication Follow-Up: Rose Patterson MD [Primary Care Provider] - Within 1 week Discharge Date/Time: 04/15/21 22:30
== END 2021-04-15 22:30 | disposition home or self-care (01) ==
LOC: EDUNIT# → EDSEX → ED 21:30
DX: F10.129 Alcohol abuse with intoxication, unspecified (principal); F17.200 Nicotine dependence, unspecified, uncomplicated
CPT/HCPCS: 99281; 99283

== ENCOUNTER 2021-05-22 09:18 | Outpatient (CLI) | payer MEDICAID | END 2021-05-22 09:19 | disposition critical access hospital (66) | LOC: EMS 09:18 | DX: F15.129 Other stimulant abuse with intoxication, unspecified (principal); Z74.2 Need for assistance at home and no other household member able to render care | CPT/HCPCS: A0425; A0429 ==

== ENCOUNTER 2021-05-22 09:39 | Emergency (ER) | payer MEDICAID ==
[2021-05-22] MEDS ORDERED: THIAMINE INJ 100 MG, MAGNESIUM SULFATE 2 GM, MULTIVITAMIN 10 ML, FOLIC ACID INJ 1 MG in... IV ONE ×5 (09:46)
[2021-05-22 09:58] LABS: BASOPHILS % (AUTO) 0.3 %; EOSINOPHILS % (AUTO) 0.5 %; HCT - HEMATOCRIT 45.5 % (37.0-47.0); HGB - HEMOGLOBIN 15.7 g/dL (12.0-16.0); LYMPHOCYTES # (AUTO) 1.8 10^3/uL (1.5-3.5); LYMPHOCYTES % (AUTO) 30.3 %; MEAN CORPUSCULAR HEMOGLOBIN 34.4 pg (27.0-31.0); MEAN CORPUSCULAR HGB CONC 34.5 g/dL (32.0-36.0); MEAN CORPUSCULAR VOLUME 99.6 fL (81.0-99.0); MEAN PLATELET VOLUME 10.5 fL (7.9-10.8); MONOCYTES # (AUTO) 0.4 10^3/uL (0.0-1.0); MONOCYTES % (AUTO) 7.4 %; NEUTROPHILS # (AUTO) 3.5 10^3/uL (1.5-6.6); NEUTROPHILS % (AUTO) 61.2 %; PLT - PLATELET COUNT 164 10^3/uL (130-450); RED BLOOD COUNT 4.57 10^6/uL (4.20-5.40); RED CELL DISTRIBUTION WIDTH 11.6 % (12.0-15.0); WHITE BLOOD COUNT 5.8 x10^3/uL (4.8-10.8)
[2021-05-22 10:12] LABS: ALBUMIN 4.2 g/dL (3.2-5.5); BILIRUBIN,TOTAL 0.7 mg/dL (0.2-1.0); CALCIUM 8.9 mg/dL (8.5-10.3); CREATININE 0.5 mg/dL (0.4-1.0); ETOH - ETHANOL 486.4 mg/dL; POTASSIUM 3.7 mmol/L (3.5-5.0); TOTAL PROTEIN 8.6 g/dL (6.7-8.2)
[2021-05-22 13:16] VITALS: BP 109/84
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
== END 2021-05-22 14:11 | disposition home or self-care (01) ==
LOC: EDUNIT# → EDBD → ED 09:39
DX: S09.93XA Unspecified injury of face, initial encounter (principal); W22.8XXA Striking against or struck by other objects, initial encounter; F10.920 Alcohol use, unspecified with intoxication, uncomplicated; Y90.8 Blood alcohol level of 240 mg/100 ml or more; I10 Essential (primary) hypertension; F17.200 Nicotine dependence, unspecified, uncomplicated
CPT/HCPCS: 36415; 80053; 80320; 83690; 85025; 96365; 99283; 99284; J3411

== ENCOUNTER 2021-10-05 15:58 | Outpatient (CLI) | payer MEDICAID | END 2021-10-05 15:59 | disposition critical access hospital (66) | LOC: EMS 15:58 | DX: S09.90XA Unspecified injury of head, initial encounter (principal); W19.XXXA Unspecified fall, initial encounter; R40.0 Somnolence | CPT/HCPCS: A0425; A0429 ==

== ENCOUNTER 2021-10-05 15:59 | Emergency (ER) | payer MEDICAID ==
[2021-10-05] MEDS ORDERED: THIAMINE INJ 100 MG in SODIUM CHLORIDE 0.9% 50 ML IV STA (16:05)
--- NOTE | 2021-10-05 16:08 | ED Physician Documentation ---
PD HPI HEAD INJURY - Stated complaint Stated Complaint: FALL/ETOH - History obtained from History obtained from: Patient - Additional information Additional information: 41-year-old woman with alcoholism presents by ambulance after a couple of falls. History is limited because she is intoxicated but reports she was at [facility] for 4 days for conservative management of some sort of intracranial hemorrhage and got out a week ago (That said the review of her [facility] E shows that that visit was probably last November.). Got out maybe a week ago. Has fallen and hit her head twice since then, one 3 days ago and once today. States she has a headache and low back pain. 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 : None HEENT: None Psych: None Musculoskeletal: None Derm: None - Past Surgical History Past Surgical History: Yes General: Other - Present Medications Home Medications: Ambulatory Orders Medication Instructions Recorded Confirmed No Known Home Medications 03/27/21 04/15/21 - Allergies Allergies/Adverse Reactions: Allergies Allergy/AdvReac Type Severity Reaction Status Date / Time amoxicillin Allergy Unknown Unknown Verified 05/22/21 09:53 - Social History Does the pt smoke?: Yes Smoking Status: Current every day smoker Does the pt drink ETOH?: Yes Does the pt have substance abuse?: Yes - Immunizations Immunizations are current?: No Immunizations: TDAP current <10years - POLST Patient has POLST: No PD ED PE NORMAL - Vitals Vital signs reviewed: Yes - General General: Other (Slow very slurred speech and smells of alcohol. Alert and oriented to person and place and events but not date) - HEENT HEENT: PERRL (With significant nystagmus), EOMI - Neck Neck: No bony TTP (Maintained in a c-collar pending imaging given intoxication) - Cardiac Cardiac: RRR, No murmur - Respiratory Respiratory: No respiratory distress, Clear bilaterally - Abdomen Abdomen: Normal bowel sounds, Soft, Non tender - Back Back: Other (There is a bruise with some underlying tenderness over the mid lumbar spine) - Derm Derm: Normal color, Warm and dry - Neuro Eye Opening: Spontaneous Motor: Obeys Commands Verbal: Confused GCS Score: 14 Results - Vitals Vitals: Vital Signs - 24 hr 10/05/21 10/05/21 16:00 18:08 Temperature 36.9 C Heart Rate 97 70 Respiratory 16 16 Rate Blood Pressure 145/99 H 122/78 O2 Saturation 97 95 Oxygen O2 Source Room air - Labs Labs: Laboratory Tests 10/05/21 10/05/21 10/05/21 16:15 16:15 16:15 WBC 3.8 L RBC 4.08 L Hgb 14.1 Hct 39.4 MCV 96.6 MCH 34.6 H MCHC 35.8 RDW 12.6 Plt Count 102 L MPV 10.3 Neut # (Auto) 1.5 Lymph # (Auto) 1.7 [place] # (Auto) 0.6 Eos # (Auto) 0.0 Baso # (Auto) 0.0 Absolute Nucleated RBC 0.00 Nucleated RBC % 0.0 PT 11.0 INR 1.0 Sodium 137 Potassium 3.7 Chloride 96 L Carbon Dioxide 24 Anion Gap 17.0 H BUN 5 L Creatinine 0.4 Estimated GFR (MDRD) 177 Glucose 100 Calcium 8.8 Magnesium 1.7 Total Bilirubin 0.8 AST 324 H ALT 82 H Alkaline Phosphatase 123 H Total Protein 7.4 Albumin 3.6 Globulin 3.8 Albumin/Globulin Ratio 0.9 L Lipase 66 H Ethyl Alcohol 498.1 - Rads (name of study) CT of the head cervical spine and lumbar spine demonstrates no trauma. Severe hepatic steatosis. Radiology: EMP read contemporaneously PD MEDICAL DECISION MAKING - ED course Complexity details: re-evaluated patient (C-collar removed at 4:59 PM after the completion of CT imaging) ED course: Shortly after arrival she started already demanding to leave. Discussed with her several times that really she was too drunk to leave, but ended up ambulating out of the department without formal discharge process. Departure - Departure Disposition: ED [place] Clinical Impression: Pathological alcohol intoxication with delirium, Head injury, Fall, Low back pain Condition: Good Record reviewed to determine appropriate education?: Yes Instructions: ED Alcohol Intoxication
[2021-10-05 16:20] LABS: BASOPHILS % (AUTO) 0.5 %; EOSINOPHILS % (AUTO) 0.3 %; HCT - HEMATOCRIT 39.4 % (37.0-47.0); HGB - HEMOGLOBIN 14.1 g/dL (12.0-16.0); LYMPHOCYTES # (AUTO) 1.7 10^3/uL (1.5-3.5); LYMPHOCYTES % (AUTO) 44.1 %; MEAN CORPUSCULAR HEMOGLOBIN 34.6 pg (27.0-31.0); MEAN CORPUSCULAR HGB CONC 35.8 g/dL (32.0-36.0); MEAN CORPUSCULAR VOLUME 96.6 fL (81.0-99.0); MEAN PLATELET VOLUME 10.3 fL (7.9-10.8); MONOCYTES # (AUTO) 0.6 10^3/uL (0.0-1.0); MONOCYTES % (AUTO) 16.4 %; NEUTROPHILS # (AUTO) 1.5 10^3/uL (1.5-6.6); NEUTROPHILS % (AUTO) 38.2 %; PLT - PLATELET COUNT 102 10^3/uL (130-450); RED BLOOD COUNT 4.08 10^6/uL (4.20-5.40); RED CELL DISTRIBUTION WIDTH 12.6 % (12.0-15.0); WHITE BLOOD COUNT 3.8 x10^3/uL (4.8-10.8)
[2021-10-05 16:33] LABS: ALBUMIN 3.6 g/dL (3.2-5.5); ALBUMIN/GLOBULIN RATIO 0.9 (1.0-2.2); BILIRUBIN,TOTAL 0.8 mg/dL (0.2-1.0); CALCIUM 8.8 mg/dL (8.5-10.3); CREATININE 0.4 mg/dL (0.4-1.0); ETOH - ETHANOL 498.1 mg/dL; MAGNESIUM 1.7 mg/dL (1.7-2.8); POTASSIUM 3.7 mmol/L (3.5-5.0); TOTAL PROTEIN 7.4 g/dL (6.7-8.2)
--- NOTE | 2021-10-05 16:50 | CT Report ---
PROCEDURE: HEAD WO INDICATIONS: Head injury/etoh TECHNIQUE: Noncontrast 4.5 mm thick angled axial sections acquired from the foramen magnum to the vertex. For r adiation dose reduction, the following was used: automated exposure control, adjustment of mA and/or kV according to patient size. COMPARISON: None. FINDINGS: Image quality: Excellent. CSF spaces: Basal cisterns are patent. No extra-axial fluid collections. Ventricles are normal in size and shape. Brain: No midline shift. No intracranial masses or hemorrhage. Rosales-white matter interface is norm al. Skull and face: Calvarium and visualized facial bones are intact, without suspicious lesions. Sinuses: Visualized sinuses and mastoids are clear. IMPRESSION: No acute intracranial abnormality. Reviewed by: Marni Cox MD on 10/05/2021 4:49 PM PDT Approved by: Marni Cox MD on 10/05/2021 4:49 PM PDT Station ID: [id number]
--- NOTE | 2021-10-05 16:52 | CT Report ---
PROCEDURE: CERVICAL SPINE WO INDICATIONS: head injury/etoh TECHNIQUE: Noncontrast 3 mm thick sections acquired from the skull base to the T4 level. Sagittal and coronal r eformats were then constructed. For radiation dose reduction, the following was used: automated exp osure control, adjustment of mA and/or kV according to patient size. COMPARISON: None. FINDINGS: Image quality: Excellent. Bones: No fractures or dislocations. Visualized superior ribs are intact. Soft tissues: Prevertebral soft tissues are normal in thickness. No paravertebral hematomas. No ap ical pneumothoraces. IMPRESSION: 1. No fracture. Reviewed by: Marni Cox MD on 10/05/2021 4:51 PM PDT Approved by: Marni Cox MD on 10/05/2021 4:51 PM PDT Station ID: [id number]
--- NOTE | 2021-10-05 17:10 | CT Report ---
PROCEDURE: LUMBAR SPINE WO INDICATIONS: back inj TECHNIQUE: Noncontrast 3 mm thick sections acquired from the T12 level to the sacrum. Sagittal and coronal refo rmats were constructed. For radiation dose reduction, the following was used: automated exposure co ntrol, adjustment of mA and/or kV according to patient size. COMPARISON: None. FINDINGS: Image quality: Excellent. Bones: There is normal bony alignment. No acute vertebral body compression fractures. No suspiciou s lytic or blastic bony lesions. No asymmetric disc space loss. Central spinal caliber is of normal overall caliber. No pars defects. Soft tissues: No retroperitoneal masses or hematomas. No paravertebral soft tissue swelling. Visual ized aorta is normal in caliber. Incidental note is made of severe hepatic steatosis. IMPRESSION: 1. Intact lumbar spine. 2. Severe hepatic steatosis. Reviewed by: Brigitte Hernandez MD on 10/05/2021 5:08 PM PDT Approved by: Brigitte Hernandez MD on 10/05/2021 5:08 PM PDT Station ID: [id number]
[2021-10-05 18:14] VITALS: BP 122/78
== END 2021-10-05 18:53 | disposition left against medical advice (07) ==
LOC: EDUNIT# → ED 15:59
DX: S09.90XA Unspecified injury of head, initial encounter (principal); W19.XXXA Unspecified fall, initial encounter; F10.121 Alcohol abuse with intoxication delirium; Y90.8 Blood alcohol level of 240 mg/100 ml or more; F17.200 Nicotine dependence, unspecified, uncomplicated; Z91.81 History of falling
CPT/HCPCS: 36415; 70450; 72125; 72131; 80053; 80320; 83690; 83735; 85025; 85610; 96365; 99281; 99284; J3411; J7040

== ENCOUNTER 2021-11-02 19:09 | Outpatient (CLI) | payer MEDICAID | END 2021-11-02 19:10 | disposition left against medical advice (07) | LOC: EMS 19:09 | DX: S01.552A Open bite of oral cavity, initial encounter (principal); R56.9 Unspecified convulsions ==

== ENCOUNTER 2021-11-02 20:21 | Outpatient (CLI) | payer MEDICAID | END 2021-11-02 20:22 | disposition critical access hospital (66) | LOC: EMS 20:21 | DX: S01.552A Open bite of oral cavity, initial encounter (principal); R56.9 Unspecified convulsions | CPT/HCPCS: A0425; A0429; A0999 ==

== ENCOUNTER 2021-11-02 20:43 | Emergency (ER) | payer MEDICAID ==
[2021-11-02] MEDS ORDERED: CHERRY SYRUP 10 ML UDC PO ONE (20:50)
[2021-11-02] MEDS ORDERED: DEXAMETHASONE 10 MG/ML VIAL PO STA (20:50)
[2021-11-02 21:16] LABS: BASOPHILS % (AUTO) 0.5 %; HCT - HEMATOCRIT 39.7 % (37.0-47.0); HGB - HEMOGLOBIN 14.5 g/dL (12.0-16.0); LYMPHOCYTES # (AUTO) 0.4 10^3/uL (1.5-3.5); LYMPHOCYTES % (AUTO) 6.4 %; MEAN CORPUSCULAR HEMOGLOBIN 35.3 pg (27.0-31.0); MEAN CORPUSCULAR HGB CONC 36.5 g/dL (32.0-36.0); MEAN CORPUSCULAR VOLUME 96.6 fL (81.0-99.0); MEAN PLATELET VOLUME 12.6 fL (7.9-10.8); MONOCYTES # (AUTO) 0.4 10^3/uL (0.0-1.0); MONOCYTES % (AUTO) 6.6 %; NEUTROPHILS # (AUTO) 4.8 10^3/uL (1.5-6.6); NEUTROPHILS % (AUTO) 86.1 %; RED BLOOD COUNT 4.11 10^6/uL (4.20-5.40); RED CELL DISTRIBUTION WIDTH 12.6 % (12.0-15.0); WHITE BLOOD COUNT 5.6 x10^3/uL (4.8-10.8)
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
[2021-11-02 21:35] LABS: ALBUMIN 3.4 g/dL (3.2-5.5); ALBUMIN/GLOBULIN RATIO 0.8 (1.0-2.2); ALKALINE PHOSPHATASE 231 IU/L (42-121); ALT ALANINE AMINOTRANSFERASE 115 IU/L (10-60); AST ASPARTATE AMINOTRANSFERASE 500 IU/L (10-42); BILIRUBIN,TOTAL 1.4 mg/dL (0.2-1.0); BUN - BLOOD UREA NITROGEN < 5 mg/dL (6-20); CALCIUM 8.9 mg/dL (8.5-10.3); CARBON DIOXIDE - CO2 22 mmol/L (21-32); CHLORIDE 88 mmol/L (101-111); CREATININE 0.3 mg/dL (0.4-1.0); ETOH - ETHANOL 21.4 mg/dL; GFR - MDRD 246 (>89); GLUCOSE 133 mg/dL (70-100); LIPASE 37 U/L (22-51); POTASSIUM 3.4 mmol/L (3.5-5.0); SODIUM 131 mmol/L (135-145); TOTAL PROTEIN 7.9 g/dL (6.7-8.2)
[2021-11-02 21:36] LABS: PLT - PLATELET COUNT 25 10^3/uL (130-450); SLIDE REVIEW? Indicated
[2021-11-02 21:37] LABS: PLATELET ESTIMATE, MANUAL DECREASED (<130,000) (NORMAL); PLATELET MORPHOLOGY NORMAL APPEARANCE (NORMAL)
[2021-11-02] MEDS ORDERED: THIAMINE INJ 100 MG, MAGNESIUM SULFATE 2 GM, MULTIVITAMIN 10 ML, FOLIC ACID INJ 1 MG in... IV ONE ×5 (22:29)
[2021-11-02] MEDS ORDERED: LORazepam 2 MG/ML VIAL IM STA ×2 (22:29→22:33)
[2021-11-02] MEDS ORDERED: LORazepam 2 MG/ML VIAL ONE (22:32)
[2021-11-02] MEDS ORDERED: MULTIVITAMIN IV 10 ML VIAL ONE (22:48)
[2021-11-02] MEDS ORDERED: THIAMINE 100 MG/1 ML 2 ML MDV ONE (22:48)
[2021-11-02] MEDS ORDERED: MAGNESIUM SULFATE 1 GM/2 ML VIAL ONE (22:48)
[2021-11-02] MEDS ORDERED: FOLIC ACID 5 MG/1 ML 10ML MDV ONE (22:48)
--- NOTE | 2021-11-02 23:40 | CT Report ---
PROCEDURE: HEAD WO INDICATIONS: seizure, fall head injury low platelets. TECHNIQUE: Noncontrast 4.5 mm thick angled axial sections acquired from the foramen magnum to the vertex. For r adiation dose reduction, the following was used: automated exposure control, adjustment of mA and/or kV according to patient size. COMPARISON: CT head 10/05/2021. FINDINGS: Image quality: Excellent. CSF spaces: Basal cisterns are patent. Ventricles are normal in size and shape. There is mild front al cerebral volume loss with prominence of the extra-axial spaces and sulci. Brain: No intracranial hemorrhage, mass, or mass effect. Rosales-white matter interface appears preser felicita. Skull and face: Calvarium and visualized facial bones are intact, without suspicious lesions. There is a partially visualized nasopharyngeal airway. Fluid is demonstrated within the nasal cavity and na sopharynx. Sinuses: Visualized sinuses and mastoids are clear. IMPRESSION: 1. No acute intra-abdominal abnormality. 2. Mild bifrontal cerebral volume loss redemonstrated. Reviewed by: Syd Monteiro MD on 11/02/2021 11:44 PM PDT Approved by: Syd Monteiro MD on 11/02/2021 11:44 PM PDT Station ID: [id number]
[2021-11-02] MEDS ORDERED: ETOMIDATE 40 MG/20 ML VIAL IVP ONE (23:46)
[2021-11-02] MEDS ORDERED: LIDOCAINE-MPF 1% 5 ML VIAL ONE (23:46)
[2021-11-02] MEDS ORDERED: SUCCINYLCHOLINE 200 MG/10 ML VIAL ONE (23:47)
[2021-11-02] MEDS ORDERED: LORazepam 2 MG/ML VIAL IVP STA (23:49)
[2021-11-03] MEDS ORDERED: DEXAMETHASONE 10 MG/ML VIAL IVP STA (00:06)
[2021-11-03 00:08] LABS: MUDS CUTOFF CONCENTRATIONS CUTOFF CONC BELOW:
[2021-11-03 00:12] LABS: BILIRUBIN,URINE NEGATIVE (NEGATIVE); GLUCOSE, URINE (UA) NEGATIVE (NEGATIVE); KETONES,URINE (UA) NEGATIVE (NEGATIVE); LEUKOCYTE ESTERASE, URINE NEGATIVE (NEGATIVE); NITRITE,URINE NEGATIVE (NEGATIVE); OCCULT BLOOD,URINE TRACE-INTA (NEGATIVE); PH,URINE 6.5 PH (5.0-7.5); PROTEIN,URINE 100 mg/dL (NEGATIVE); UROBILINOGEN,URINE 0.2 (NORMAL) E.U./dL (NORMAL)
[2021-11-03 00:14] LABS: CLARITY,URINE CLEAR (CLEAR)
[2021-11-03 00:25] LABS: AMPHETAMINE SCREEN,URINE NEGATIVE (NEGATIVE); BACTERIA,URINE None Seen /HPF (None Seen); BARBITURATE SCREEN,UR NEGATIVE (NEGATIVE); BENZODIAZEPINES SCREEN, URINE NEGATIVE (NEGATIVE); COCAINE SCREEN URINE NEGATIVE (NEGATIVE); METHADONE SCREEN, URINE NEGATIVE (NEGATIVE); METHAMPHETAMINES SCREEN, URINE NEGATIVE (NEGATIVE); OPIATE SCREEN, URINE NEGATIVE (NEGATIVE); OXYCODONE SCREEN, URINE NEGATIVE (NEGATIVE); PROPOXYPHENE SCREEN, URINE NEGATIVE (NEGATIVE); RBC,URINE 0-5 /HPF (0-5); SQUAMOUS EPITHELIAL CELL,UR RARE Squamous (<= Few); THC CANNABINOID SCREEN, URINE NEGATIVE (NEGATIVE); TRICYCLIC ANTIDEPRESSANT,URINE NEGATIVE (NEGATIVE); WBC,URINE 0-3 /HPF (0-5)
[2021-11-03] MEDS ORDERED: DEXMEDETOMIDINE 400 MCG/100 ML 100 ML IV ONE (00:55)
[2021-11-03] MEDS ORDERED: PHENobarbital 65 MG/ML VIAL IV STA (00:56)
[2021-11-03] MEDS ORDERED: ROCURONIUM 50 MG/5 ML VIAL ONE (00:59)
[2021-11-03] MEDS ORDERED: PROPOFOL 200 MG/20 ML VIAL IVP ONE (01:00)
[2021-11-03] MEDS ORDERED: SODIUM CHLORIDE 0.9% 1,000 ML IV STA (01:06)
[2021-11-03 01:12] LABS: B. PARAPERTUSSIS- RESP PCR PAN NOT DETECTED; B. PERTUSSIS- RESP PCR PANEL NOT DETECTED; C. PNEUMONIAE- RESP PCR PANEL NOT DETECTED; CORONAVIRUS 229E-RESP PCR NOT DETECTED; CORONAVIRUS HKU1-RESP PCR NOT DETECTED; CORONAVIRUS NL63-RESP PCR NOT DETECTED; CORONAVIRUS OC43-RESP PCR NOT DETECTED; HUMAN METAPNEUMOVIRUS NOT DETECTED; INFLUENZA A- RESP PCR PANEL NOT DETECTED; INFLUENZA B - RESP PCR PANEL NOT DETECTED; M. PNEUMONIAE- RESP PCR PANEL NOT DETECTED; PARAINFLUENZA VIRUS 1 NOT DETECTED; PARAINFLUENZA VIRUS 2 NOT DETECTED; PARAINFLUENZA VIRUS 3 NOT DETECTED; PARAINFLUENZA VIRUS 4 NOT DETECTED; RHINOVIRUS/ENTEROVIRUS NOT DETECTED; RSV- RESP PCR PANEL NOT DETECTED; SARS-CoV-2 -RESP PCR PANEL NOT DETECTED
[2021-11-03] MEDS ORDERED: MIDAZOLAM 2 MG/2 ML VIAL ONE (01:16)
[2021-11-03 01:18] VITALS: BP 124/97
--- NOTE | 2021-11-03 01:25 | ANESTHESIA PROCEDURE NOTE ---
Anesthesia Intubation Template - Intubation Blade: positive: Michelle Tube: Size-enter number (6.5), Marked at teeth-enter cm (21) Route: Oral Placement Confirmation: End tidal CO2, Direct visualization, Bilateral breath sounds Complications: No complications
[2021-11-03] MEDS ORDERED: MIDAZOLAM 10 MG/2 ML VIAL IVP STA ×2 (01:28→01:47)
--- NOTE | 2021-11-03 01:58 | CONSULTATION NOTE ---
Consultation Report: [id number] called to the ED by Dr. Raman to assist with airway management in a pt with markedly swollen tongue secondary to biting during multiple seizures related to ETOH withdrawl. Upon assessment pt noted to be maintaining her airway currently with a nasal trumpet in R nare (placed prior to my arrival), sat 100%, RR20's. Approximately 1" of space noted between her tongue and soft palate. pt noted to be bleeding steadily from the mouth and nose. PLT 25k on labwork. Discussed with Dr Raman hesitancy to instrument her airway at this point as pt is stable. Will try more steroids to see if swelling resolves. Remaining at the bedside to monitor pt. 0029 Tongue swelling noted to be markedly worsening with near occlusion of oral cavity. Sats remain 100%, but pt noted to be becoming more anxious, tachycardic, and tachypneic. Decision made to proceed with intubation for airway protection. All emergency equipment at the bedside, including Vent, Ambu, Glidescope, MacGrath, tracheal bougie, fiberoptic, oral and nasal ETT, and cric kit. 0037 Pt medicated with 100mg Lidocaine, 20mg Etomidate, Succynlcholine 50mg (benzos given by ED). 0038 Pt successfully intubated using Michelle blade 3 6.5 cuffed ETT over tracheal bougie, attempt x1, atraumatic, secured at 21cm at the teeth, +CO2, +BBS, sat 100%. VSS remain stable. NAC. Care transferred to ED providers, RT at the bedside for vent management.
[2021-11-03] MEDS ORDERED: ROCURONIUM 50 MG/5 ML VIAL IVP STA (02:07)
[2021-11-03 02:31] LABS: PLATELET ESTIMATE, MANUAL DECREASED (<130,000) (NORMAL); PLATELET MORPHOLOGY NORMAL APPEARANCE (NORMAL); RBC MORPHOLOGY (MULTIPLE) NORMAL APPEARANCE (NORMAL)
[2021-11-03 02:32] LABS: WBC MORPHOLOGY (MULTIPLE) NORMAL APPEARANCE (NORMAL)
--- NOTE | 2021-11-03 09:03 | XRAY Report ---
PROCEDURE: Chest for Line Placement INDICATIONS: tube placement TECHNIQUE: One view of the chest was acquired. COMPARISON: Chest x-ray, one view, 10/11/2020 FINDINGS: Surgical changes and devices: The tip of the endotracheal tube is 2.6 cm above niecy. Lungs and pleura: No pleural effusions or pneumothorax. Lungs are clear. Mediastinum: Mediastinal contours appear normal. Heart size is normal. Bones and chest wall: No suspicious bony lesions. Overlying soft tissues appear unremarkable. IMPRESSION: Endotracheal tube tip is 2.6 cm above niecy. No significant discrepancy with the preliminary interpretation. Reviewed by: Lupe Driscoll MD on 11/03/2021 9:02 AM PDT Approved by: Lupe Driscoll MD on 11/03/2021 9:02 AM PDT Station ID: [id number]
[2021-11-03 09:57] LABS: PARTIAL THROMBOPLASTIN TIME 28.8 secs (24.9-33.3); PT - PROTHROMBIN TIME 11.1 secs (9.9-12.6)
[2021-11-03 10:02] LABS: BASOPHILS % (AUTO) 0.3 %; HCT - HEMATOCRIT 36.5 % (37.0-47.0); HGB - HEMOGLOBIN 13.2 g/dL (12.0-16.0); LYMPHOCYTES # (AUTO) 0.2 10^3/uL (1.5-3.5); MEAN CORPUSCULAR HEMOGLOBIN 35.1 pg (27.0-31.0); MEAN CORPUSCULAR HGB CONC 36.2 g/dL (32.0-36.0); MEAN CORPUSCULAR VOLUME 97.1 fL (81.0-99.0); MEAN PLATELET VOLUME 11.4 fL (7.9-10.8); MONOCYTES # (AUTO) 0.2 10^3/uL (0.0-1.0); MONOCYTES % (AUTO) 2.7 %; NEUTROPHILS # (AUTO) 5.6 10^3/uL (1.5-6.6); NEUTROPHILS % (AUTO) 93.5 %; RED BLOOD COUNT 3.76 10^6/uL (4.20-5.40); RED CELL DISTRIBUTION WIDTH 12.6 % (12.0-15.0)
[2021-11-03 10:03] LABS: PLT - PLATELET COUNT 24 10^3/uL (130-450)
== END 2021-11-03 03:34 | disposition short-term general hospital (02) ==
LOC: EDUNIT# → ED 20:43
DX: S01.552A Open bite of oral cavity, initial encounter (principal); X58.XXXA Exposure to other specified factors, initial encounter; I10 Essential (primary) hypertension; F17.200 Nicotine dependence, unspecified, uncomplicated; F10.239 Alcohol dependence with withdrawal, unspecified; F10.229 Alcohol dependence with intoxication, unspecified; Y90.1 Blood alcohol level of 20-39 mg/100 ml; D69.6 Thrombocytopenia, unspecified; T88.4XXA Failed or difficult intubation, initial encounter; Z20.822 Contact with and (suspected) exposure to COVID-19; R56.9 Unspecified convulsions
CPT/HCPCS: 31500; 36415; 70450; 80053; 80306; 80320; 81001; 83605; 83690; 85025; 85610; 85730; 87633; 94002; 96365; 96372; 96375; 99291; 99292; A9270; J0330; J2060; J2250; J3411; 81003; 87086

== ENCOUNTER → 2021-11-14 | Outpatient (CLI) | payer MEDICAID | END | disposition short-term general hospital (02) | LOC: EMS 13:22 | DX: R60.0 Localized edema (principal) | CPT/HCPCS: A0425; A0429; A0999 ==

== ENCOUNTER 2021-11-27 12:34 | Emergency (ER) | payer MEDICAID ==
[2021-11-27] MEDS ORDERED: SODIUM CHLORIDE 0.9% 1,000 ML IV STA (12:42)
[2021-11-27 12:44] VITALS: BP 111/72
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
[2021-11-27] MEDS ORDERED: THIAMINE INJ 100 MG, MAGNESIUM SULFATE 2 GM, MULTIVITAMIN 10 ML, FOLIC ACID INJ 1 MG in... IV ONE ×5 (12:46)
[2021-11-27 13:22] LABS: BASOPHILS % (AUTO) 0.3 %; EOSINOPHILS # (AUTO) 0.1 10^3/uL (0.0-0.7); EOSINOPHILS % (AUTO) 1.3 %; HGB - HEMOGLOBIN 10.4 g/dL (12.0-16.0); LYMPHOCYTES # (AUTO) 1.7 10^3/uL (1.5-3.5); LYMPHOCYTES % (AUTO) 41.9 %; MEAN CORPUSCULAR HEMOGLOBIN 34.7 pg (27.0-31.0); MEAN CORPUSCULAR HGB CONC 35.9 g/dL (32.0-36.0); MEAN CORPUSCULAR VOLUME 96.7 fL (81.0-99.0); MEAN PLATELET VOLUME 10.2 fL (7.9-10.8); MONOCYTES # (AUTO) 0.2 10^3/uL (0.0-1.0); MONOCYTES % (AUTO) 4.5 %; NEUTROPHILS # (AUTO) 2.1 10^3/uL (1.5-6.6); NEUTROPHILS % (AUTO) 51.7 %; PLT - PLATELET COUNT 73 10^3/uL (130-450); RED CELL DISTRIBUTION WIDTH 13.1 % (12.0-15.0)
--- OUTSIDE RECORDS SUMMARY | 2021-11-27 13:25 | EXTERNAL MEDICAL SUMMARY RPT | Continuity of Care Document ---
:1980 Author Organization [place] Address [address] [place] [address] Phone Allergies and Intolerances date description facility type (no date) [facility] (unknown) (no date) [facility] (unknown) Encounters No information. Functional Status No information. Immunizations No information. Medications date description facility +0000 magnesium oxide All [id number]+0000 folic acid All [id number]+0000 folic acid All [id number]+0000 levetiracetam All [id number]+0000 metoprolol tartrate All [id number]+0000 levetiracetam All [id number]+0000 l.acid-l.casei-b.bif-b.rebekah-fos All [id number]+0000 multivit-iron sulf-folic acid All [id number]+0000 metoprolol tartrate All Problems No information. Procedures date description facility [id number]+0000 General Physician [facility] Results/Labs No information. Social History date description facility (no date) Smokes tobacco daily (finding) [facility] Vital Signs date measurement value units [id number]+0000 BMI BMI 24.1 kg/m2 44328760435503+0000 BP_diastolic BP_diastolic 66 mm[H g] 78237770139828+0000 BP_systolic BP_systolic 112 mm[Hg] 72919894307588+0000 heart_rate heart_rate 100 /min 45100857007920+0000 height_metric height_metric 157.48 cm 27367148193580+0000 height_standard height_standard 62 in [id number]+0000 respiration_rate respiration_rate 18 /min 79930260419136+0000 temperature_metric temperature_metric 36.67 C 15308141206946+0000 temperature_standard temperature_standard 9 8 F [id number]+0000 weight_metric weight_metric 59.87 kg 71459316755385+0000 weight_standard weight_standard 131.99 lb
[2021-11-27 13:30] LABS: INR 1.1 (0.8-1.2); PT - PROTHROMBIN TIME 12.3 secs (9.9-12.6)
--- NOTE | 2021-11-27 13:31 | CT Report ---
PROCEDURE: HEAD WO INDICATIONS: etoh, drinking, glf TECHNIQUE: Noncontrast 4.5 mm thick angled axial sections acquired from the foramen magnum to the vertex. For r adiation dose reduction, the following was used: automated exposure control, adjustment of mA and/or kV according to patient size. COMPARISON: 11/02/2021 FINDINGS: Image quality: Excellent. CSF spaces: Basal cisterns are patent. No extra-axial fluid collections. Ventricles are normal in size and shape. Brain: No midline shift. No intracranial masses or hemorrhage. Rosales-white matter interface is norm al. Skull and face: Calvarium and visualized facial bones are intact, without suspicious lesions. Sinuses: Visualized sinuses and mastoids are clear. IMPRESSION: No acute intracranial abnormality. Reviewed by: Alvin Ricks on 11/27/2021 12:30 PM RUTH Approved by: Alvin Ricks on 11/27/2021 12:30 PM [facility] Station ID: [id number]
[2021-11-27 13:44] LABS: ALBUMIN 2.9 g/dL (3.2-5.5); ALBUMIN/GLOBULIN RATIO 0.7 (1.0-2.2); ALKALINE PHOSPHATASE 204 IU/L (42-121); ALT ALANINE AMINOTRANSFERASE 47 IU/L (10-60); AST ASPARTATE AMINOTRANSFERASE 225 IU/L (10-42); BILIRUBIN,TOTAL 0.7 mg/dL (0.2-1.0); BUN - BLOOD UREA NITROGEN < 5 mg/dL (6-20); CALCIUM 8.1 mg/dL (8.5-10.3); CARBON DIOXIDE - CO2 23 mmol/L (21-32); CHLORIDE 101 mmol/L (101-111); CREATININE 0.4 mg/dL (0.4-1.0); GFR - MDRD 177 (>89); GLUCOSE 97 mg/dL (70-100); LIPASE 49 U/L (22-51); POTASSIUM 3.4 mmol/L (3.5-5.0); SODIUM 137 mmol/L (135-145); TOTAL PROTEIN 7.2 g/dL (6.7-8.2)
== END 2021-11-27 14:19 | disposition left against medical advice (07) ==
LOC: EDUNIT# → EDBD → ED 12:34
DX: F10.229 Alcohol dependence with intoxication, unspecified (principal); Z91.81 History of falling; Z53.29 Procedure and treatment not carried out because of patient's decision for other reasons; F17.200 Nicotine dependence, unspecified, uncomplicated; S01.512D Laceration without foreign body of oral cavity, subsequent encounter; X58.XXXD Exposure to other specified factors, subsequent encounter; I10 Essential (primary) hypertension
CPT/HCPCS: 36415; 70450; 80053; 83690; 85025; 85610; 99281; 99284; J3411

== ENCOUNTER 2022-05-07 21:11 | Outpatient (CLI) | payer MEDICAID | END 2022-05-07 21:12 | disposition EMS.NT | LOC: EMS 21:11 | DX: R14.0 Abdominal distension (gaseous) (principal); R10.12 Left upper quadrant pain; R10.11 Right upper quadrant pain; M54.50 Low back pain, unspecified; Z72.89 Other problems related to lifestyle ==

== ENCOUNTER 2022-05-08 23:40 | Outpatient (CLI) | payer MEDICAID | END 2022-05-08 23:41 | disposition critical access hospital (66) | LOC: EMS 23:40 | DX: R10.11 Right upper quadrant pain (principal); R10.12 Left upper quadrant pain; R14.0 Abdominal distension (gaseous); Z72.89 Other problems related to lifestyle | CPT/HCPCS: A0425; A0429; A0999 ==

== ENCOUNTER 2022-05-08 23:54 | Emergency (ER) | payer MEDICAID ==
[2022-05-09 00:15] LABS: BASOPHILS % (AUTO) 0.3 %; EOSINOPHILS % (AUTO) 0.1 %; HCT - HEMATOCRIT 33.1 % (37.0-47.0); LYMPHOCYTES # (AUTO) 1.8 10^3/uL (1.5-3.5); LYMPHOCYTES % (AUTO) 25.5 %; MEAN CORPUSCULAR HEMOGLOBIN 32.1 pg (27.0-31.0); MEAN CORPUSCULAR HGB CONC 33.2 g/dL (32.0-36.0); MEAN CORPUSCULAR VOLUME 96.5 fL (81.0-99.0); MEAN PLATELET VOLUME 11.5 fL (7.9-10.8); MONOCYTES # (AUTO) 1.2 10^3/uL (0.0-1.0); MONOCYTES % (AUTO) 16.3 %; NEUTROPHILS # (AUTO) 4.1 10^3/uL (1.5-6.6); NEUTROPHILS % (AUTO) 57.5 %; PLT - PLATELET COUNT 101 10^3/uL (130-450); RED BLOOD COUNT 3.43 10^6/uL (4.20-5.40); RED CELL DISTRIBUTION WIDTH 15.2 % (12.0-15.0); WHITE BLOOD COUNT 7.1 x10^3/uL (4.8-10.8)
--- NOTE | 2022-05-09 00:29 | ED Physician Documentation ---
History of Present Illness - Stated complaint Stated Complaint: ABD PX - Chief complaint Chief Complaint: Abd Pain - Additonal information Additional information: Patient is 41-year-old female presenting to the emergency department brought in by EMS with chief complaint of abdominal pain. Per EMS history has been having more than 2 weeks worth of abdominal pain and abdominal distention. Has a longstanding history of EtOH abuse and multiple ED visits for similar presentations, mostly involving acute alcohol intoxication and falls or other such Injuries. On my evaluation the patient requested immediate discharge from the emergency d epartment stating that she intends to leave to go smoke. She refused to answer questions about the symptoms that she had been having. 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 HEENT: None Psych: None Musculoskeletal: None Derm: None - Past Surgical History Past Surgical History: Yes General: Other - Present Medications Home Medications: Ambulatory Orders Medication Instructions Recorded Confirmed No Known Home Medications 03/27/21 11/02/21 - Allergies Allergies/Adverse Reactions: Allergies Allergy/AdvReac Type Severity Reaction Status Date / Time amoxicillin Allergy Unknown Unknown Verified 05/08/22 23:58 - Social History Does the pt smoke?: Yes Smoking Status: Current every day smoker Does the pt drink ETOH?: Yes Does the pt have substance abuse?: Yes - Immunizations Immunizations are current?: No Immunizations: TDAP current <10years - POLST Patient has POLST: No PD ED PE NORMAL - Vitals Vital signs reviewed: Yes - General General: Alert and oriented X 3, No acute distress - HEENT HEENT: Atraumatic - Respiratory Respiratory: No respiratory distress - Abdomen Abdomen: Other (Patient's abdomen appears distended.) - 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, No motor deficit, No sensory deficit, Normal speech - Psych Psych: Normal mood Results - Vitals Vitals: Vital Signs - 24 hr 05/08/22 05/09/22 05/09/22 23:59 00:03 00:31 Temperature 36.9 C 36.9 C Heart Rate 100 100 84 Respiratory 16 16 16 Rate Blood Pressure 115/85 H 115/85 H 112/84 H O2 Saturation 100 100 100 Oxygen O2 Source Room air - Labs Labs: Laboratory Tests 05/09/22 05/09/22 00:02 00:02 WBC 7.1 RBC 3.43 L Hgb 11.0 L Hct 33.1 L MCV 96.5 MCH 32.1 H MCHC 33.2 RDW 15.2 H Plt Count 101 L MPV 11.5 H Neut # (Auto) 4.1 Lymph # (Auto) 1.8 [place] # (Auto) 1.2 H Eos # (Auto) 0.0 Baso # (Auto) 0.0 Absolute Nucleated RBC 0.00 Nucleated RBC % 0.0 Sodium 132 L Potassium 2.9 L Chloride 95 L Carbon Dioxide 24 Anion Gap 13.0 BUN < 5 L Creatinine 0.3 L Estimated GFR (MDRD) 246 Glucose 154 H Calcium 8.3 L Total Bilirubin 2.8 H AST 199 H ALT 32 Alkaline Phosphatase 410 H Total Protein 7.6 Albumin 2.8 L Globulin 4.8 H Albumin/Globulin Ratio 0.6 L Lipase 38 Ethyl Alcohol 474.0 PD Medical Decision Making - ED course Complexity details: d/w patient ED course: Patient is 41-year-old female with past medical significant for EtOH abuse presenting to the emergency department with reports of 2 weeks of abdominal pain and abdominal distention. She had a very low level tachycardia on arrival but was otherwise hemodynamically stable. At the time of my interview with the patient which was approximately 25 minutes after arrival to the emergency department she declined to answer questions about her symptoms, and requested immediate discharge from the emergency department so that she could leave and go smoke. I explained that if she wished I could discharge her from the department but my wish would be for her to allow me to perform a physical exam and an appropriate medical screening exam for any possible life-threatening medical emergency. She declined this intervention, reiterating that she intends to leave at this time. She demonstrated decisional capacity. The physical exam recorded in this documentation is what I was able to ascertain from observation alone as she discussed client any more thorough or complete physical exam. She was encouraged to follow-up with her primary care doctor or return to the emergency department as needed. Final clinical impression: Abdominal pain. Departure - Departure Disposition: Home, Self Care Clinical Impression: Abdominal pain Instructions: Abdominal Pain Comments: Thank you for allowing us the opportunity to care for you today at [facility]. You are deciding to leave the emergency department before we had the opportunity to perform any physical exam or diagnostic studies. Please be aware that given this I cannot tell you for certain whether or not there is a life-threatening or dangerous cause for your symptoms. I wanted to know you are always welcome to return to the emergency department if you have new or worsening symptoms or if you decide you would like further care.
[2022-05-09 00:32] VITALS: BP 112/84
[2022-05-09 00:48] LABS: ALBUMIN 2.8 g/dL (3.2-5.5); ALBUMIN/GLOBULIN RATIO 0.6 (1.0-2.2); ALKALINE PHOSPHATASE 410 IU/L (42-121); ALT ALANINE AMINOTRANSFERASE 32 IU/L (10-60); AST ASPARTATE AMINOTRANSFERASE 199 IU/L (10-42); BILIRUBIN,TOTAL 2.8 mg/dL (0.2-1.0); BUN - BLOOD UREA NITROGEN < 5 mg/dL (6-20); CALCIUM 8.3 mg/dL (8.5-10.3); CARBON DIOXIDE - CO2 24 mmol/L (21-32); CHLORIDE 95 mmol/L (101-111); CREATININE 0.3 mg/dL (0.4-1.0); GFR - MDRD 246 (>89); GLUCOSE 154 mg/dL (70-100); LIPASE 38 U/L (22-51); POTASSIUM 2.9 mmol/L (3.5-5.0); SODIUM 132 mmol/L (135-145); TOTAL PROTEIN 7.6 g/dL (6.7-8.2)
== END 2022-05-09 02:16 | disposition home or self-care (01) ==
LOC: EDUNIT# → ED 23:54
DX: R10.9 Unspecified abdominal pain (principal); R00.0 Tachycardia, unspecified; F17.200 Nicotine dependence, unspecified, uncomplicated
CPT/HCPCS: 36415; 80053; 80320; 83690; 85025; 99281; 99283

== ENCOUNTER 2022-05-11 23:52 | Outpatient (CLI) | payer MEDICAID | END 2022-05-11 23:53 | disposition critical access hospital (66) | LOC: EMS 23:52 | DX: R10.84 Generalized abdominal pain (principal); R19.37 Generalized abdominal rigidity; K59.00 Constipation, unspecified | CPT/HCPCS: A0425; A0429; A0999 ==

== ENCOUNTER 2022-05-12 00:12 | Emergency (ER) | payer MEDICAID ==
--- NOTE | 2022-05-12 00:25 | ED Physician Documentation ---
PD HPI ABD PAIN - Stated complaint Stated Complaint: ABD PX - Chief complaint Chief Complaint: Abd Pain - History obtained from History obtained from: Patient - History of Present Illness Timing - onset: How many weeks ago ("few weeks", per patient) Timing - details: Gradual onset, Waxing and waning Quality: Pain Location: All over / everywhere (diffuse but more pronounced right abdomen and epigastrium) Radiation: Other (does not radiate) Improved by: Other (no ameliorating factors) Worsened by: Palpation Associated symptoms: Nausea, Vomiting. No: Fever, Diarrhea, Constipation, Melena, Hematochezia Recently seen: Emergency Dept - Additional information Additional information: BIBA. HPI provided by patient. Patient c/o generalized abdominal pain, more pronounced right abdomen and epigastrium with abdominal bloating and radiation of the pain to mid/lower back. She says the pain has been waxing and waning for a few weeks, no inciting incident. Denies injury. She presented to this ED 05/08/22 for similar c/o; ED MD chart indicates patient insisted on leaving AMA shortly after arrival. She does not have a primary care provider. She tells me she stopped taking her prescription medications several months ago citing side effect. Per SERENA, al is patient's eighth ED visit over past 12 months (one to ED, the remainder to [facility] ED). She has several other previous [facility] ED visits which predominantly were alcohol-related presentations/complaints. Review of Systems Constitutional: denies: Fever, Chills, Sweats Cardiac: reports: Reviewed and negative Respiratory: reports: Reviewed and negative GI: reports: Abdominal Pain, Abdominal Swelling, Nausea, Vomiting. 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 HEENT: None Psych: None Musculoskeletal: None Derm: None - Past Surgical History Past Surgical History: Yes General: Other - Present Medications Home Medications: Ambulatory Orders Medication Instructions Recorded Confirmed LORazepam [Ativan] 1 mg PO TID PRN #14 tablet 05/12/22 - Allergies Allergies/Adverse Reactions: Allergies Allergy/AdvReac Type Severity Reaction Status Date / Time amoxicillin Allergy Unknown Unknown Verified 05/12/22 00:17 - Social History Does the pt smoke?: Yes Smoking Status: Current every day smoker Does the pt drink ETOH?: Yes Does the pt have substance abuse?: Yes - Immunizations Immunizations are current?: No Immunizations: TDAP current <10years - POLST Patient has POLST: No PD ED PE NORMAL - Vitals Vital signs reviewed: Yes - General General: Alert and oriented X 3, No acute distress, Well developed/nourished - HEENT HEENT: Moist mucous membranes - Neck Neck: Supple, no meningeal sign - Cardiac Cardiac: No murmur - Respiratory Respiratory: No respiratory distress, Clear bilaterally - Abdomen Abdomen: Soft, Non distended, Other (mild/moderate TTP RUQ and epigastrium with lesser TTP in RLQ and periumbilicus) - Back Back: No CVA TTP - Extremities Extremities: No edema PD ED PE EXPANDED - Cardiac Cardiac: Tachy, Regular Rhythm Results - Vitals Vitals: Vital Signs - 24 hr 05/12/22 05:47 Heart Rate 100 Respiratory 18 Rate Blood Pressure 136/84 H O2 Saturation 98 Oxygen O2 Source Room air - Labs Labs: Laboratory Tests 05/12/22 05/12/22 05/12/22 00:57 02:00 02:00 WBC 7.4 RBC 3.44 L Hgb 11.1 L Hct 33.2 L MCV 96.5 MCH 32.3 H MCHC 33.4 RDW 15.9 H Plt Count 140 MPV 11.1 H Neut # (Auto) 5.2 Lymph # (Auto) 1.1 L [place] # (Auto) 1.1 H Eos # (Auto) 0.0 Baso # (Auto) 0.0 Absolute Nucleated RBC 0.00 Nucleated RBC % 0.0 PT INR APTT Sodium 131 L Potassium 3.2 L Chloride 93 L Carbon Dioxide 23 Anion Gap 15.0 H BUN < 5 L Creatinine 0.3 L Estimated GFR (MDRD) 246 Glucose 121 H Calcium 8.0 L Total Bilirubin 4.4 H AST 182 H ALT 28 Alkaline Phosphatase 456 H Total Protein 7.4 Albumin 2.6 L Globulin 4.8 H Albumin/Globulin Ratio 0.5 L Lipase 30 Urine Color DARK YELLOW Urine Clarity CLEAR Urine pH 6.0 Ur Specific [place] <=1.005 Urine Protein NEGATIVE Urine Glucose (UA) NEGATIVE Urine Ketones NEGATIVE Urine Occult Blood NEGATIVE Urine Nitrite NEGATIVE Urine Bilirubin MODERATE H Urine Urobilinogen 1 (NORMAL) Ur Leukocyte Esterase NEGATIVE Ur Microscopic Review NOT INDICATED Urine Culture Comments NOT INDICATED Urine HCG, Qual NEGATIVE Ethyl Alcohol 187.5 05/12/22 02:00 WBC RBC Hgb Hct MCV MCH MCHC RDW Plt Count MPV Neut # (Auto) Lymph # (Auto) [place] # (Auto) Eos # (Auto) Baso # (Auto) Absolute Nucleated RBC Nucleated RBC % PT 15.3 H INR 1.4 H APTT 30.3 Sodium Potassium Chloride Carbon Dioxide Anion Gap BUN Creatinine Estimated GFR (MDRD) Glucose Calcium Total Bilirubin AST ALT Alkaline Phosphatase Total Protein Albumin Globulin Albumin/Globulin Ratio Lipase Urine Color Urine Clarity Urine pH Ur Specific [place] Urine Protein Urine Glucose (UA) Urine Ketones Urine Occult Blood Urine Nitrite Urine Bilirubin Urine Urobilinogen Ur Leukocyte Esterase Ur Microscopic Review Urine Culture Comments Urine HCG, Qual Ethyl Alcohol - Rads (name of study) CT A/P with IV contrast Radiology: Prelim report reviewed, See rad report PD Medical Decision Making - ED course Complexity details: reviewed old records, reviewed results, re-evaluated patient, considered differential, d/w patient ED course: CT A/P reveals moderate abdominal ascites. There are no previous studies available to me for comparative purposes (there are previous radiological studies on PACS but no abdominal studies such as CT nor US). Bilirubin levels have mostly been normal on previous results available to me, with normal result (0.7) on 11/27/21, but 2.8 on recent ED visit (05/08/22) and tonight it is 4.4. Results d/w patient. She says she has not been diagnosed with cirrhosis but expresses concern that this might be the cause of her abdominal pain and swelling. I explained to her that this diagnosis cannot be made in the ED, but her history of heavy and regular alcohol use , combined with the CT finding of ascites, is strongly suggestive of cirrhosis. I advised her to seek follow up in outpatient setting for further testing, possible specialist referral, and treatment with appropriate medication once the diagnosis can be established. Departure - Departure Disposition: 01 Home, Self Care Clinical Impression: Alcoholism Ascites Qualifiers: Ascites type: other type Qualified Code(s): R18.8 - Other ascites Condition: Good Instructions: ED Ascites, ED Diet Low Salt 2Gm Prescriptions: LORazepam [Ativan] 1 mg PO TID PRN #14 tablet PRN Reason: Alcohol Withdrawal Comments: Your CT scan shows fluid in the abdomen; this condition is called ascites. You will need further tests to determine the cause of the ascites but, as we discussed, the most common cause is cirrhosis. Follow-up with your primary care provider soon as can be arranged for reevaluation and further testing. If you do not have a primary care provider, contact your insurance provider to request to be assigned the primary care provider. If you are having problems with quitting drinking, in particular if you are starting to experience symptoms of withdrawal from alcohol, I would encourage you to contact a detox facility. You can try [facility], which is on [facility]. [facility] [address] [place] [address] Discharge Date/Time: 05/12/22 05:51
[2022-05-12] MEDS ORDERED: iohexoL-300 100 ML VIAL ONE (01:02)
[2022-05-12 01:14] LABS: GLUCOSE, URINE (UA) NEGATIVE (NEGATIVE); KETONES,URINE (UA) NEGATIVE (NEGATIVE); LEUKOCYTE ESTERASE, URINE NEGATIVE (NEGATIVE); NITRITE,URINE NEGATIVE (NEGATIVE); OCCULT BLOOD,URINE NEGATIVE (NEGATIVE); PROTEIN,URINE NEGATIVE (NEGATIVE); UROBILINOGEN,URINE 1 (NORMAL) E.U./dL (NORMAL)
[2022-05-12 01:20] LABS: CLARITY,URINE CLEAR (CLEAR)
[2022-05-12 01:21] LABS: BILIRUBIN,URINE MODERATE (NEGATIVE); HCG UR QUAL NEGATIVE; ICTOTEST,URINE POSITIVE
[2022-05-12 02:11] LABS: BASOPHILS % (AUTO) 0.5 %; HCT - HEMATOCRIT 33.2 % (37.0-47.0); HGB - HEMOGLOBIN 11.1 g/dL (12.0-16.0); LYMPHOCYTES # (AUTO) 1.1 10^3/uL (1.5-3.5); LYMPHOCYTES % (AUTO) 14.2 %; MEAN CORPUSCULAR HEMOGLOBIN 32.3 pg (27.0-31.0); MEAN CORPUSCULAR HGB CONC 33.4 g/dL (32.0-36.0); MEAN CORPUSCULAR VOLUME 96.5 fL (81.0-99.0); MEAN PLATELET VOLUME 11.1 fL (7.9-10.8); MONOCYTES # (AUTO) 1.1 10^3/uL (0.0-1.0); MONOCYTES % (AUTO) 14.6 %; NEUTROPHILS # (AUTO) 5.2 10^3/uL (1.5-6.6); NEUTROPHILS % (AUTO) 70.3 %; PLT - PLATELET COUNT 140 10^3/uL (130-450); RED BLOOD COUNT 3.44 10^6/uL (4.20-5.40); RED CELL DISTRIBUTION WIDTH 15.9 % (12.0-15.0); WHITE BLOOD COUNT 7.4 x10^3/uL (4.8-10.8)
[2022-05-12 02:15] LABS: INR 1.4 (0.8-1.2); PT - PROTHROMBIN TIME 15.3 secs (9.9-12.6)
[2022-05-12 02:23] LABS: ALBUMIN 2.6 g/dL (3.2-5.5); ALBUMIN/GLOBULIN RATIO 0.5 (1.0-2.2); ALKALINE PHOSPHATASE 456 IU/L (42-121); ALT ALANINE AMINOTRANSFERASE 28 IU/L (10-60); AST ASPARTATE AMINOTRANSFERASE 182 IU/L (10-42); BILIRUBIN,TOTAL 4.4 mg/dL (0.2-1.0); BUN - BLOOD UREA NITROGEN < 5 mg/dL (6-20); CARBON DIOXIDE - CO2 23 mmol/L (21-32); CHLORIDE 93 mmol/L (101-111); CREATININE 0.3 mg/dL (0.4-1.0); ETOH - ETHANOL 187.5 mg/dL; GFR - MDRD 246 (>89); GLUCOSE 121 mg/dL (70-100); LIPASE 30 U/L (22-51); PARTIAL THROMBOPLASTIN TIME 30.3 secs (24.9-33.3); POTASSIUM 3.2 mmol/L (3.5-5.0); SODIUM 131 mmol/L (135-145); TOTAL PROTEIN 7.4 g/dL (6.7-8.2)
[2022-05-12] MEDS ORDERED: iohexoL-300 100 ML VIAL IVP ONE (03:18)
[2022-05-12] MEDS ORDERED: PANTOPRAZOLE 40 MG TABLET PO STA (05:25)
[2022-05-12 05:51] VITALS: BP 136/84
--- NOTE | 2022-05-12 09:18 | CT Report ---
PROCEDURE: ABDOMEN/PELVIS W INDICATIONS: abdominal pain, tenderness, distention CONTRAST: Omni 300 100ml TECHNIQUE: After the administration of IV contrast, 5 mm thick sections acquired from the diaphragms to the symp hysis. 5 mm thick coronal and sagittal reformats were acquired. For radiation dose reduction, the f ollowing was used: automated exposure control, adjustment of mA and/or kV according to patient size. COMPARISON: None available. FINDINGS: Image quality: Excellent. ABDOMEN: Lung bases: Lung bases are clear. Heart size is normal. Small hiatal hernia. Solid organs: Liver is moderately enlarged. Moderate hepatic steatosis. Spleen is normal in size and enhancement. There is a 0.7 cm nodule adjacent to the splenic hilum, possibly a small splenule. Gal lbladder is normal. Biliary system is non dilated. Pancreas enhances normally. No adrenal nodules. Kidneys demonstrate normal size and enhancement, without hydronephrosis. Peritoneum and bowel: There is a moderate to large moderate ascites. Subtle omental stranding and no dularity. Bowel loops demonstrate normal wall thickness and caliber. No free air. Nodes and vessels: No retroperitoneal or mesenteric adenopathy by size criteria. Aorta and inferior vena cava are normal in size. Miscellaneous: No ventral hernias. PELVIS: Genitourinary: Uterus and ovaries are unremarkable. There is a moderate amount of free fluid in the cul-de-sac. Bladder wall thickness is normal. Miscellaneous: No inguinal hernias or adenopathy. Bones: No suspicious bony lesions. No vertebral body compression fractures. IMPRESSION: 1. Moderate hepatomegaly and hepatic steatosis. 2. A [id number] amount of ascites. Etiology may be secondary to liver disease or malignancy. Recommend clinical correlation. Consider diagnostic paracentesis. 3. Subtle omental stranding and nodular nodularity. Reviewed by: Lupe Driscoll MD on 05/12/2022 9:17 AM [facility] Approved by: Lupe Driscoll MD on 05/12/2022 9:17 AM PST Station ID: [id number]
== END 2022-05-12 05:51 | disposition home or self-care (01) ==
LOC: EDUNIT# → ED 00:12
DX: F10.20 Alcohol dependence, uncomplicated (principal); R18.8 Other ascites
CPT/HCPCS: 36415; 74177; 80053; 80320; 81003; 81025; 83690; 85025; 85610; 85730; 99284; A9270; Q9967; 81001; 87086

== ENCOUNTER 2022-05-23 01:31 | Outpatient (CLI) | payer MEDICAID | END 2022-05-23 01:32 | disposition EMS.NT | LOC: EMS 01:31 | DX: R19.00 Intra-abdominal and pelvic swelling, mass and lump, unspecified site (principal) ==

== ENCOUNTER 2022-05-26 15:23 | Outpatient (CLI) | payer MEDICAID | END 2022-05-26 15:24 | disposition EMS.NT | LOC: EMS 15:23 | DX: R10.9 Unspecified abdominal pain (principal); R14.0 Abdominal distension (gaseous); R60.0 Localized edema; M79.672 Pain in left foot; M79.671 Pain in right foot; Z72.89 Other problems related to lifestyle | CPT/HCPCS: A0425; A0429; A0999 ==

== ENCOUNTER 2022-05-26 15:40 | Emergency (ER) | payer MEDICAID ==
--- NOTE | 2022-05-26 16:27 | ED Physician Documentation ---
PD HPI ABD PAIN - Stated complaint Stated Complaint: BILAT FOOT PX - Chief complaint Chief Complaint: Abd Pain - History obtained from History obtained from: Patient, EMS - History of Present Illness Timing - onset: Chronic (with worsening the past few weeks.) Timing - details: Gradual onset, Still present Quality: Cramping, Aching, Fullness/distended (she states increasing fullness and bloating of abdomen, with increased edema in both legs and feet for several weeks to months, more noted and symptoms the past few weeks. Denies taking any diuretics nor lactulose, but states previously prescribed.) Radiation: No: Chest, Lower back Worsened by: Eating Associated symptoms: Nausea, Loss of appetite. No: Fever, Vomiting, Diarrhea, Constipation, Dysuria Similar symptoms before: Diagnosis (alcoholic liver disease with slowly developing ascites. She denies prior paracentesis.) Recently seen: Emergency Dept (recent ER visits for similar, with increasiing bilirubin noted the past couple months.) Review of Systems Constitutional: denies: Fever, Chills Nose: denies: Rhinorrhea / runny nose, Congestion Throat: denies: Sore throat Respiratory: reports: Dyspnea, Wheezing. denies: Cough GI: reports: Abdominal Swelling, Nausea. denies: Vomiting, Constipation, Diarrhea : denies: Dysuria Neurologic: reports: Generalized weakness, Syncope. 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 HEENT: None Psych: None Musculoskeletal: None Derm: None - Past Surgical History Past Surgical History: Yes General: Other - Present Medications Home Medications: Ambulatory Orders Medication Instructions Recorded Confirmed LORazepam [Ativan] 1 mg PO TID PRN #14 tablet 05/12/22 Lactulose 15 ml PO DAILY #240 ml 05/26/22 Spironolactone [Aldactone] 25 mg PO DAILY #30 tablet 05/26/22 hydroCHLOROthiazide [Hydrodiuril] 25 mg PO DAILY #30 tablet 05/26/22 - Allergies Allergies/Adverse Reactions: Allergies Allergy/AdvReac Type Severity Reaction Status Date / Time amoxicillin Allergy Unknown Unknown Verified 05/26/22 15:48 - Social History Does the pt smoke?: Yes Smoking Status: Current every day smoker Does the pt drink ETOH?: Yes Does the pt have substance abuse?: Yes - Immunizations Immunizations are current?: No Immunizations: TDAP current <10years - POLST Patient has POLST: No PD ED PE NORMAL - Vitals Vital signs reviewed: Yes - General General: Alert and oriented X 3 (but does have some mild slurring of speech and smell of alcohol on breath. ), No acute distress, Well developed/nourished - HEENT HEENT: PERRL (icteric eyes noted. ), Pharynx benign - Neck Neck: Supple, no meningeal sign, No adenopathy - Cardiac Cardiac: RRR, No murmur - Respiratory Respiratory: No respiratory distress, Clear bilaterally - Abdomen Abdomen: Soft, Other (distended with dullness to percussion but is not tense. Mild general painfullness to palpation. Not tender to percussion. Small umbilical hernia easily reduces. ) - Female Female : Deferred - Rectal Rectal: Deferred - Back Back: No CVA TTP - Derm Derm: Normal color, Warm and dry - Extremities Extremities: No calf tenderness / cord, Other (2+ general edema pitting in both legs up to thighs. ) - Neuro Neuro: Alert and oriented X 3, No motor deficit, Normal speech Results - Vitals Vitals: Vital Signs - 24 hr 05/26/22 05/26/22 05/26/22 15:48 17:50 18:48 Temperature 36.5 C Heart Rate 100 116 H 107 H Respiratory 16 18 18 Rate Blood Pressure 128/78 106/64 102/75 O2 Saturation 97 98 95 Oxygen O2 Source Room air - Labs Labs: Laboratory Tests 05/26/22 05/26/22 14:36 14:36 WBC 12.2 H RBC 2.69 L Hgb 9.0 L Hct 26.3 L MCV 97.8 MCH 33.5 H MCHC 34.2 RDW 18.3 H Plt Count 69 L MPV 10.8 Neut # (Auto) 9.4 H Lymph # (Auto) 1.7 [place] # (Auto) 1.0 Eos # (Auto) 0.0 Baso # (Auto) 0.1 Absolute Nucleated RBC 0.00 Nucleated RBC % 0.0 Sodium 136 Potassium 3.8 Chloride 100 L Carbon Dioxide 23 Anion Gap 13.0 BUN < 5 L Creatinine 0.3 L Estimated GFR (MDRD) 246 Glucose 106 H Calcium 7.8 L Total Bilirubin 4.2 H AST 254 H ALT 24 Alkaline Phosphatase 406 H Total Protein 7.5 Albumin 2.3 L Globulin 5.2 H Albumin/Globulin Ratio 0.4 L Lipase 43 Ethyl Alcohol 452.1 PD Medical Decision Making - ED course Complexity details: reviewed old records, reviewed results (has increasing bili. Kidney function is good. ETOH is very elevated but she is conversant and interacts okay. Seems stable for discharge. She is not driving. She is functio nal enough at this BA level to be able to discharge. ), re-evaluated patient (she has not been taking any diuretic nor lactulose. Has increasing LFTs. ), considered differential, d/w patient Social Determinants of Health: alcoholism and today states not interested in detox. Abd does not feel peritoneal, so no labs nor centesis done. Can try diuretics and lactulose. follo w up with new PCP. ED course: she has increasing ascites and LFTs. Has not been taking any meds. States does not have current PCP. Will give pt diuretic here and lactulose. Of course, not fruitful if not continued by patient. Departure - Departure Disposition: 01 Home, Self Care Clinical Impression: Alcoholism, Bilateral leg edema, Alcoholic liver damage Ascites Qualifiers: Ascites type: due to alcoholic hepatitis Qualified Code(s): K70.11 - Alcoholic hepatitis with ascites Alcohol intoxication Qualifiers: Complication of substance-induced condition: uncomplicated Qualified Code(s): F10.920 - Alcohol use, unspecified with intoxication, uncomplicated Condition: Stable Record reviewed to determine appropriate education?: Yes Instructions: ED Ascites, ED Edema Legs Bilateral Follow-Up: [facility] [Provider Group] [facility] [place] [Provider Group] Prescriptions: Spironolactone [Aldactone] 25 mg PO DAILY #30 tablet hydroCHLOROthiazide [Hydrodiuril] 25 mg PO DAILY #30 tablet Lactulose 15 ml PO DAILY #240 ml Comments: You do have significant and worsening liver injury from your chronic alcohol use. This is causing increased pressure through the blood flow of the liver and the back pressure is leading to the swelling/weeping of fluid into your abdomen and lower extremities. Primary and this would be to decrease and stop alcohol use. We can treat the symptoms with diuretic/water pills of hydrochlorothiazide and spironolactone taken daily. We can also try to decrease the bilirubin amount in your body with lactulose orally which binds with the bilirubin in the intestine and comes out in the stool. A send prescriptions for these to [facility] pharmacy in [place] and also printed a copy should do go to a different pharmacy. Start these medications regularly. Try to obtain a local primary care as well, call for an appointment. Ibuprofen or naproxen if needed for pains. Discharge Date/Time: 05/26/22 19:00
[2022-05-26] MEDS ORDERED: LACTULOSE 10 GM /15 ML UDC PO STA (16:30)
[2022-05-26] MEDS ORDERED: FUROSEMIDE 40 MG/4 ML VIAL IVP STA (16:30)
[2022-05-26] MEDS ORDERED: KETOROLAC 15 MG/ML VIAL IVP STA (16:31)
[2022-05-26 16:45] LABS: BASOPHILS # (AUTO) 0.1 10^3/uL (0.0-0.1); BASOPHILS % (AUTO) 0.4 %; EOSINOPHILS % (AUTO) 0.2 %; HCT - HEMATOCRIT 26.3 % (37.0-47.0); LYMPHOCYTES # (AUTO) 1.7 10^3/uL (1.5-3.5); LYMPHOCYTES % (AUTO) 13.7 %; MEAN CORPUSCULAR HEMOGLOBIN 33.5 pg (27.0-31.0); MEAN CORPUSCULAR HGB CONC 34.2 g/dL (32.0-36.0); MEAN CORPUSCULAR VOLUME 97.8 fL (81.0-99.0); MEAN PLATELET VOLUME 10.8 fL (7.9-10.8); MONOCYTES % (AUTO) 8.2 %; NEUTROPHILS # (AUTO) 9.4 10^3/uL (1.5-6.6); NEUTROPHILS % (AUTO) 77.1 %; PLT - PLATELET COUNT 69 10^3/uL (130-450); RED BLOOD COUNT 2.69 10^6/uL (4.20-5.40); RED CELL DISTRIBUTION WIDTH 18.3 % (12.0-15.0); WHITE BLOOD COUNT 12.2 x10^3/uL (4.8-10.8)
[2022-05-26 16:59] LABS: ALBUMIN 2.3 g/dL (3.2-5.5); ALBUMIN/GLOBULIN RATIO 0.4 (1.0-2.2); ALKALINE PHOSPHATASE 406 IU/L (42-121); ALT ALANINE AMINOTRANSFERASE 24 IU/L (10-60); AST ASPARTATE AMINOTRANSFERASE 254 IU/L (10-42); BILIRUBIN,TOTAL 4.2 mg/dL (0.2-1.0); BUN - BLOOD UREA NITROGEN < 5 mg/dL (6-20); CALCIUM 7.8 mg/dL (8.5-10.3); CARBON DIOXIDE - CO2 23 mmol/L (21-32); CHLORIDE 100 mmol/L (101-111); CREATININE 0.3 mg/dL (0.4-1.0); ETOH - ETHANOL 452.1 mg/dL; GFR - MDRD 246 (>89); GLUCOSE 106 mg/dL (70-100); LIPASE 43 U/L (22-51); POTASSIUM 3.8 mmol/L (3.5-5.0); SODIUM 136 mmol/L (135-145); TOTAL PROTEIN 7.5 g/dL (6.7-8.2)
[2022-05-26 18:49] VITALS: BP 102/75
== END 2022-05-26 19:00 | disposition home or self-care (01) ==
LOC: EDUNIT# → ED 15:40
DX: K70.11 Alcoholic hepatitis with ascites (principal); F10.920 Alcohol use, unspecified with intoxication, uncomplicated; R60.9 Edema, unspecified; F17.200 Nicotine dependence, unspecified, uncomplicated
CPT/HCPCS: 36415; 80053; 80320; 83690; 85025; 96374; 99284; A9270

== ENCOUNTER 2022-06-12 10:03 | Outpatient (CLI) | payer MEDICAID | END 2022-06-12 10:04 | disposition critical access hospital (66) | LOC: EMS 10:03 | DX: R10.84 Generalized abdominal pain (principal); R14.0 Abdominal distension (gaseous); R60.0 Localized edema; R29.6 Repeated falls; Z72.89 Other problems related to lifestyle | CPT/HCPCS: A0425; A0429; A0999 ==

== ENCOUNTER 2022-06-12 10:17 | Observation (INO) | payer MEDICAID ==
[2022-06-12 10:51] LABS: BASOPHILS # (AUTO) 0.1 10^3/uL (0.0-0.1); BASOPHILS % (AUTO) 0.5 %; EOSINOPHILS % (AUTO) 0.2 %; HCT - HEMATOCRIT 22.7 % (37.0-47.0); HGB - HEMOGLOBIN 7.3 g/dL (12.0-16.0); LYMPHOCYTES # (AUTO) 0.9 10^3/uL (1.5-3.5); LYMPHOCYTES % (AUTO) 9.9 %; MEAN CORPUSCULAR HEMOGLOBIN 33.8 pg (27.0-31.0); MEAN CORPUSCULAR HGB CONC 32.2 g/dL (32.0-36.0); MEAN CORPUSCULAR VOLUME 105.1 fL (81.0-99.0); MEAN PLATELET VOLUME 10.4 fL (7.9-10.8); MONOCYTES # (AUTO) 1.3 10^3/uL (0.0-1.0); NEUTROPHILS # (AUTO) 7.1 10^3/uL (1.5-6.6); NEUTROPHILS % (AUTO) 74.8 %; PLT - PLATELET COUNT 249 10^3/uL (130-450); RED BLOOD COUNT 2.16 10^6/uL (4.20-5.40); WHITE BLOOD COUNT 9.5 x10^3/uL (4.8-10.8)
[2022-06-12] MEDS ORDERED: FUROSEMIDE 20 MG TABLET PO STA (11:00)
--- NOTE | 2022-06-12 11:00 | ED Physician Documentation ---
History of Present Illness - Stated complaint Stated Complaint: AMS/HBD - Chief complaint Chief Complaint: Abd Pain - History obtained from History obtained from: Patient, EMS - History of Present Illness Timing: Chronic Pain level max: 5 Pain level now: 5 - Additonal information Additional information: Patient is a 41-year-old female brought in by ambulance for abdominal pain. She states that this is been ongoing for the past several weeks. Has a history of alcoholic liver cirrhosis. She does not follow-up with any primary care providers. She does not take her medications as prescribed. She has been drinking alcohol today. No fevers. No vomiting. Review of Systems Constitutional: denies: Fever Nose: denies: Rhinorrhea / runny nose Throat: denies: Sore throat Respiratory: denies: Dyspnea, Cough GI: reports: Abdominal Pain (states feels tight). 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 : None HEENT: None Psych: None Musculoskeletal: None Derm: None - Past Surgical History Past Surgical History: Yes General: Other - Present Medications Home Medications: Ambulatory Orders Medication Instructions Recorded Confirmed LORazepam [Ativan] 1 mg PO TID PRN #14 tablet 05/12/22 Lactulose 15 ml PO DAILY #240 ml 05/26/22 Spironolactone [Aldactone] 25 mg PO DAILY #30 tablet 05/26/22 hydroCHLOROthiazide [Hydrodiuril] 25 mg PO DAILY #30 tablet 05/26/22 - Allergies Allergies/Adverse Reactions: Allergies Allergy/AdvReac Type Severity Reaction Status Date / Time amoxicillin Allergy Unknown Unknown Verified 05/26/22 15:48 - Social History Does the pt smoke?: Yes Smoking Status: Current every day smoker Does the pt drink ETOH?: Yes Does the pt have substance abuse?: Yes - Immunizations Immunizations are current?: No Immunizations: TDAP current <10years - POLST Patient has POLST: No PD ED PE NORMAL - Vitals Vital signs reviewed: Yes - General General: Alert and oriented X 3, No acute distress - HEENT HEENT: PERRL, Moist mucous membranes - Neck Neck: Supple, no meningeal sign - Cardiac Cardiac: RRR - Respiratory Respiratory: No respiratory distress, Clear bilaterally - Abdomen Abdomen: Soft, Non tender, Other (Moderately distended abdomen, nontender) - Back Back: No spinal TTP - Derm Derm: Warm and dry - Extremities Extremities: Other (2+ bilateral pitting edema up to the mid thighs) - Neuro Neuro: Alert and oriented X 3 - Psych Psych: Normal mood, Normal affect Results - Vitals Vitals: Vital Signs - 24 hr 06/12/22 06/12/22 06/12/22 10:24 10:59 11:29 Temperature 36.8 C Heart Rate 115 H 112 H Respiratory 17 17 18 Rate Blood Pressure 121/78 120/78 120/78 O2 Saturation 99 100 100 06/12/22 11:30 Temperature Heart Rate 112 H Respiratory 16 Rate Blood Pressure 109/84 H O2 Saturation 100 Oxygen O2 Source Room air - Labs Labs: Laboratory Tests 06/12/22 06/12/22 06/12/22 10:48 10:48 10:48 WBC 9.5 RBC 2.16 L Hgb 7.3 L Hct 22.7 L MCV 105.1 H MCH 33.8 H MCHC 32.2 RDW 17.0 H Plt Count 249 MPV 10.4 Neut # (Auto) 7.1 H Lymph # (Auto) 0.9 L Bracken # (Auto) 1.3 H Eos # (Auto) 0.0 Baso # (Auto) 0.1 Absolute Nucleated RBC 0.00 Nucleated RBC % 0.0 PT 18.2 H INR 1.7 H APTT 32.2 Sodium 129 L Potassium 2.6 L Chloride 89 L Carbon Dioxide 26 Anion Gap 14.0 H BUN < 5 L Creatinine 0.6 Estimated GFR (MDRD) 111 Glucose 133 H Calcium 7.9 L Phosphorus Magnesium Total Bilirubin 5.3 H AST 99 H ALT 18 Alkaline Phosphatase 247 H Ammonia Total Protein 7.2 Albumin 2.0 L Globulin 5.2 H Albumin/Globulin Ratio 0.4 L Lipase 30 Ethyl Alcohol 30.7 SARS-CoV-2 (PCR) 06/12/22 06/12/22 06/12/22 10:48 10:48 11:27 WBC RBC Hgb Hct MCV MCH MCHC RDW Plt Count MPV Neut # (Auto) Lymph # (Auto) Bracken # (Auto) Eos # (Auto) Baso # (Auto) Absolute Nucleated RBC Nucleated RBC % PT INR APTT Sodium Potassium Chloride Carbon Dioxide Anion Gap BUN Creatinine Estimated GFR (MDRD) Glucose Calcium Phosphorus 1.6 L Magnesium 1.6 L Total Bilirubin AST ALT Alkaline Phosphatase Ammonia 48.9 H Total Protein Albumin Globulin Albumin/Globulin Ratio Lipase Ethyl Alcohol SARS-CoV-2 (PCR) NOT DETECTED PD Medical Decision Making - ED course Complexity details: reviewed old records, reviewed results, re-evaluated patient, considered differential, d/w patient, d/w color consultant Reviewed Lab Results: CBC reveals anemia, normal platelets and normal white blood cell count. Hemoglobin 7.3. INR is elevated at 1.7 indicating liver dysfunction. CMP reveals hyponatremia, sodium 129, hypokalemia, potassium 2.6, hypochloremia at 89, creatinine is normal at 0.6. Calcium is low, phosphorus and magnesium are low. Elevated bilirubin, has been trending up for the past 6 months. AST greater than ALT consistent with alcoholic liver disease. Ammonia is mildly elevated, but patient is not acutely altered. Alcohol level is mildly elevated COVID test is negative. ED course: Patient is found to be increasingly anemic, hemoglobin now down to 7.3. She is short of breath with walking. Will likely need at least a unit of blood. Her p otassium is also low at 2.6. We will begin replacing this. She was given Lasix and spironolactone. Patient also has moderate to large ascites. 41-year-old female with alcoholic cirrhosis of the liver presents with gradually worsening anemia over the past 6 months. She now is to the point that she is short of breath when walking, hemoglobin 7.3, will likely need a blood transfusion. Also has significant edema. Given Lasix and spironolactone here. She also has hypokalemia and hypomagnesemia. Patient does not have any acute GI bleeding. No hematemesis, bloody or dark stools. We will place her in observation for diuresis, transfusion and consideration of a paracentesis with radiology tomorrow. Discussed the case with Dr. Bauman, hospitalist who accepts. Results were reviewed with Dr. Bauman as well. This document was made in part using voice recognition software. While efforts are made to proofread this document, sound alike and grammatical errors may occur. Departure - Departure Disposition: ED Place in Observation Clinical Impression: Hypokalemia, Peripheral edema, Alcoholic cirrhosis of liver with ascites Anemia Qualifiers: Anemia type: unspecified type Qualified Code(s): D64.9 - Anemia, unspecified Ascites Qualifiers: Ascites type: due to alcoholic cirrhosis Qualified Code(s): K70.31 - Alcoholic cirrhosis of liver with ascites Condition: Stable Discharge Date/Time: 06/12/22 13:29
[2022-06-12] MEDS ORDERED: SPIRONOLACTONE 25 MG TABLET PO STA (11:01)
[2022-06-12 11:10] LABS: INR 1.7 (0.8-1.2); PT - PROTHROMBIN TIME 18.2 secs (9.9-12.6)
[2022-06-12 11:17] LABS: PARTIAL THROMBOPLASTIN TIME 32.2 secs (24.9-33.3)
[2022-06-12 11:20] LABS: ALBUMIN/GLOBULIN RATIO 0.4 (1.0-2.2); ALKALINE PHOSPHATASE 247 IU/L (42-121); ALT ALANINE AMINOTRANSFERASE 18 IU/L (10-60); AST ASPARTATE AMINOTRANSFERASE 99 IU/L (10-42); BILIRUBIN,TOTAL 5.3 mg/dL (0.2-1.0); BUN - BLOOD UREA NITROGEN < 5 mg/dL (6-20); CALCIUM 7.9 mg/dL (8.5-10.3); CARBON DIOXIDE - CO2 26 mmol/L (21-32); CHLORIDE 89 mmol/L (101-111); CREATININE 0.6 mg/dL (0.4-1.0); ETOH - ETHANOL 30.7 mg/dL; GFR - MDRD 111 (>89); GLUCOSE 133 mg/dL (70-100); LIPASE 30 U/L (22-51); POTASSIUM 2.6 mmol/L (3.5-5.0); SODIUM 129 mmol/L (135-145); TOTAL PROTEIN 7.2 g/dL (6.7-8.2)
[2022-06-12 11:37] LABS: MAGNESIUM 1.6 mg/dL (1.7-2.8); PHOSPHORUS 1.6 mg/dL (2.5-4.6)
[2022-06-12] MEDS ORDERED: ACETAMINOPHEN 325 MG TABLET PO PRN (12:00)
[2022-06-12] MEDS ORDERED: ONDANSETRON 4 MG/2 ML VIAL IVP PRN (12:00)
[2022-06-12] MEDS ORDERED: ONDANSETRON ODT 4 MG TABLET TL PRN (12:00)
[2022-06-12] MEDS ORDERED: SODIUM CHLORIDE FLUSH 0.9% 10 ML SYRINGE IVP PRN (12:00)
[2022-06-12] MEDS ORDERED: THIAMINE 100 MG TABLET PO STA (12:22)
[2022-06-12] MEDS ORDERED: FOLIC ACID 1 MG TABLET PO SCH (13:00)
[2022-06-12] MEDS: LACTULOSE 10 GM /15 ML UDC PO SCH (13:48)
[2022-06-12] MEDS: PRENATAL VITAMIN TABLET PO SCH (13:48)
--- NOTE | 2022-06-12 13:54 | HISTORY & PHYSICAL EXAMINATION ---
Chief Complaint - Chief Complaint Chief Complaint: altered mental status and abdominal pain History of Present Illness - Admitted From Admitted From:: [facility] ED - History Obtained From Records Reviewed: Yes History obtained from: ED - History of Present Illness HPI Comment/Other: 41 year old female with chronic alcohol abuse, liver cirrhosis with ascites, alcohol withdrawal, and hypertension presented to the ED by ambulance with altered mental status, abdominal pain, and large ascites with marked abdominal distention. She states that she has had chronic 5/10 abdominal pain for the past several weeks. She reports alcohol consumption today and her toxicology report was positive for ethyl alcohol level of 30.7. She smokes cigarettes daily. She denies fever or vomiting. She is tachycardic and short of breath with walking. She has peripheral edema. She is normotensive and afebrile. She is anemic with hemoglobin 7.3. She is hypokalemic at 2.6. In the ED, they began replacing her potassium and started her on Lasix and spironolactone to minimize ascitic fluid volume and decrease peripheral edema. She is alert and oriented. She appears in moderate distress. Her speech is slow and labored. Her abdomen is very distended and dull to percussion. It is hard to measure her liver and spleen due to her distention, but she indicates that she feels like her liver is pressing up into her chest. She indicates that she has diffuse abdominal pain and pressure, which is causing her chest discomfort. She has muscle wasting in her arms and legs. She has mild peripheral edema and palpation of her lower legs causes her pain. She has numerous spider angiomas on her face. She denies fever, weight loss, diarrhea, nausea, early satiety, and n ight sweats. 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 She is not on control pills. She is possibly sexually active, unclear do to unreliable historian.) : reports: None HEENT: reports: None Psych: reports: None Musculoskeletal: reports: None Derm: reports: None MRSA Hx?: Yes - Family & Social History Family History: Mother: (Complications related to alcoholism ), Father: Alcoholism, COPD/Emphysema, Sister: Alcoholism, Brother: Alcoholism Living arrangement: At home Living Situation: With friend(s) - Substance History Use: Uses substance without health or social issues: Tobacco (1/2 pack per day) Abuse: Recurrent use of substance despite neg consequences: Alcohol (2-3 24 oz beer per day) Abuse Issues: Intoxication (alcoholic cirrhosis of liver with ascites ) Dependence: Experiences withdrawal or developed tolerances: Alcohol Dependence Issues: Withdrawal Tobacco Details: Cigarettes - POLST Patient has POLST: No POLST Status: Full Code Meds/Allgy - Home Medications Home Medications: Ambulatory Orders Medication Instructions Recorded Confirmed LORazepam [Ativan] 1 mg PO TID PRN #14 tablet 05/12/22 06/12/22 Spironolactone [Aldactone] 25 mg PO DAILY #30 tablet 05/26/22 06/12/22 hydroCHLOROthiazide [Hydrodiuril] 25 mg PO DAILY #30 tablet 05/26/22 06/12/22 - Allergies Allergies/Adverse Reactions: Allergies Allergy/AdvReac Type Severity Reaction Status Date / Time amoxicillin Allergy Unknown Unknown Verified 05/26/22 15:48 Review of Systems - Constitutional Constitutional: reports: Chills, Weakness - Cardiovascular Cariovascular: reports: Edema, Exertional dyspnea - Respiratory Respiratory: reports: SOB at rest, SOB with exertion - Gastrointestinal Gastrointestinal: reports: Abdominal distention, Other (Loose stool) - Musculoskeletal Musculoskeletal: reports: Muscle pain, Muscle weakness - Neurological Neurological: reports: General weakness - Hematologic/Lymphatic Hematologic/Lymphatic: reports: Anemia, Bruising - All Other Systems All Other Systems: reports: Reviewed and negative Prior Level of Functionality: Full functionality Exam - Vital Signs Vital Signs: Vital Signs x48h Temp Pulse Resp BP Pulse Ox 06/12/22 13:00 116 H 20 116/76 99 06/12/22 12:12 110 H 15 115/77 100 06/12/22 11:30 112 H 16 109/84 H 100 06/12/22 11:29 18 120/78 100 06/12/22 10:59 112 H 17 120/78 100 06/12/22 10:24 36.8 C 115 H 17 121/78 99 - Physical Exam General Appearance: positive: Moderate distress Eyes Bilateral: positive: Normal inspection, PERRL, EOMI, No lid inflammation, Conjunctivae nml, No scleral icterus ENT: positive: ENT inspection nml, Pharynx nml, No signs of dehydration Neck: positive: Nml inspection, Thyroid nml, No JVD, Trachea midline Respiratory: positive: Wheezes (expiratory) Cardiovascular: positive: No murmur, No gallop, Tachycardia Peripheral Pulses: positive: 1+ Abdomen: positive: Tenderness (diffuse with light palpation), Guarding, Abnml bowel sounds (decreased), Other (Possible organomegaly, difficult to assess due to severe abdominal distention) Skin: positive: Pallor, Other (spider angiomas on her face) Extremities: positive: Full ROM, Pedal edema, Calf tenderness Neurologic/Psychiatric: positive: Oriented x3, CN's nml (2-12), Motor nml, S ensation nml, Mood/affect nml Sepsis Event Note (H) - Evaluation Current Stage of Sepsis: Ruled out (afebrile, no leukocytosis, normal RR) - Sepsis Criteria Sepsis Criteria: Recorded Heart Rate greater than 90 bpm Conclusion/Plan - Problem List (1) Alcoholic cirrhosis of liver with ascites Conclusion/Plan: She developed ascites and abdominal pain rapidly over a few weeks. She has significant abdominal distention, large ascites, dullness to percussion, and diffuse abdominal pressure and pain on exam. She most likely has significant liver enlargement, which is hard to assess due to ascites. Her serum sodium is 129. Creatinine 0.6. Plan: Abdominal paracentesis. Give spironolactone 100 mg per day plus oral fu rosemide 40 mg per day. Restriction of dietary sodium and free water. Reevaluate daily weight. Stop diuretics if serum sodium is less than 120 or serum creatinine greater than 2. Recommend alcohol abstinence. (2) Alcohol abuse Conclusion/Plan: Recommend alcohol cessation. Consider baclofen treatment. (3) Abdominal pain Conclusion/Plan: Most likely due to ascites from alcoholic cirrhosis of the liver. Will continue to monitor for fever or altered mental status, which could suggest spontaneous bacterial peritonitis. Plan: Diuresis and paracentesis should relieve her abdominal pressure and pain. (4) Hypokalemia Conclusion/Plan: Potassium 2.6. Moderate muscle weakness. Muscle wasting of arms and legs. Magnesium 1.6. Chloride 89. Plan: potassium-sparing diuretic (spironolactone) and oral potassium supplementation (potassium chloride). Continue to monitor labs. May need EKG to r/o cardiac arrhythmia since she also has hypomagnesemia. (5) Peripheral edema Conclusion/Plan: Due to alcoholic liver cirrhosis and ascites. Plan: furosemide and spironolactone diuresis. IPC device for DVT prophylaxis. (6) Secondary amenorrhea Conclusion/Plan: She indicates that she has not menstruated for 2-3 months. She says she had regular menses prior. She does not use contraception. She may be sexually active. She was a poor historian. Plan: urine or serum hCG test to r/o . (7) Hypomagnesemia Conclusion/Plan: Magnesium 1.6. Plan: Monitor. May need IV magnesium. Assess for neuromuscular hyperexcitability symptoms (tetany, seizure, involuntary movements) or delirium. May need EKG to r/o cardiac arrhythmia. (8) Altered mental status Conclusion/Plan: Resolved. Will continue to monitor. Qualifiers: Altered mental status type: coma Coma depth: Hartsel coma 3-8 Coma timing: in the field (EMT or ambulance) Qualified Code(s): R40.2431 - Hartsel coma scale score 3-8, in the field [EMT or ambulance] - Lab Results Fish Bones: 06/12/22 10:48 06/12/22 10:48
--- NOTE | 2022-06-12 14:12 | PHARMACY PROGRESS NOTE ---
- Best Possible Medication History Admit Date and Time: 06/12/22 1200 Processed by: Pharmacy Medication History completed: Yes Patient Interview: Completed Secondary Source(s): Pharmacy records, Insurance records As the person ultimately responsible for medication therapy, providers are able to order a medication from an existing home medication list in [facility] via the "Reconcile Routine" prior to Confirmation of that medication by geophysical support specialist. Such practice is discouraged except when the physician, in their clinical judgment, deems that a medical need exists for a medication without regard to previous use.
[2022-06-12] MEDS ORDERED: MAGNESIUM SULFATE 2 GRAM 2 GM/50 ML BAG IV ONE (16:31)
[2022-06-12] MEDS: oxyCODONE 5 MG TABLET PO PRN ×2 (17:41→23:54)
[2022-06-12] MEDS: SODIUM CHLORIDE FLUSH 0.9% 10 ML SYRINGE IVP SCH ×2 (17:46→23:54)
[2022-06-12] MEDS: POTASSIUM CHLORIDE 10 MEQ CAPSULE PO SCH (18:15)
[2022-06-12] MEDS: NICOTINE 7 MG PATCH TOP SCH (18:16)
[2022-06-12 20:32] LABS: MUDS CUTOFF CONCENTRATIONS CUTOFF CONC BELOW:
[2022-06-12 20:44] LABS: HCG UR QUAL NEGATIVE
[2022-06-12 20:50] LABS: AMPHETAMINE SCREEN,URINE NEGATIVE (NEGATIVE); BARBITURATE SCREEN,UR NEGATIVE (NEGATIVE); BENZODIAZEPINES SCREEN, URINE POSITIVE (NEGATIVE); COCAINE SCREEN URINE NEGATIVE (NEGATIVE); METHADONE SCREEN, URINE NEGATIVE (NEGATIVE); METHAMPHETAMINES SCREEN, URINE NEGATIVE (NEGATIVE); OPIATE SCREEN, URINE NEGATIVE (NEGATIVE); OXYCODONE SCREEN, URINE POSITIVE (NEGATIVE); PROPOXYPHENE SCREEN, URINE NEGATIVE (NEGATIVE); THC CANNABINOID SCREEN, URINE NEGATIVE (NEGATIVE); TRICYCLIC ANTIDEPRESSANT,URINE NEGATIVE (NEGATIVE)
[2022-06-13] MEDS ORDERED: diazePAM INJ 5 MG/ML SYRINGE IVP PRN (01:44)
[2022-06-13] MEDS ORDERED: METOPROLOL 5 MG/5 ML VIAL IVP PRN (01:54)
[2022-06-13 06:26] LABS: BASOPHILS # (AUTO) 0.1 10^3/uL (0.0-0.1); BASOPHILS % (AUTO) 0.5 %; EOSINOPHILS % (AUTO) 0.4 %; HCT - HEMATOCRIT 20.2 % (37.0-47.0); LYMPHOCYTES # (AUTO) 1.3 10^3/uL (1.5-3.5); LYMPHOCYTES % (AUTO) 14.1 %; MEAN CORPUSCULAR HGB CONC 32.7 g/dL (32.0-36.0); MEAN CORPUSCULAR VOLUME 104.1 fL (81.0-99.0); MEAN PLATELET VOLUME 10.9 fL (7.9-10.8); MONOCYTES # (AUTO) 1.3 10^3/uL (0.0-1.0); MONOCYTES % (AUTO) 14.4 %; NEUTROPHILS # (AUTO) 6.4 10^3/uL (1.5-6.6); NEUTROPHILS % (AUTO) 69.8 %; PLT - PLATELET COUNT 250 10^3/uL (130-450); RED BLOOD COUNT 1.94 10^6/uL (4.20-5.40); RED CELL DISTRIBUTION WIDTH 17.4 % (12.0-15.0); WHITE BLOOD COUNT 9.2 x10^3/uL (4.8-10.8)
[2022-06-13 06:36] LABS: ALBUMIN 1.7 g/dL (3.2-5.5); ALBUMIN/GLOBULIN RATIO 0.4 (1.0-2.2); BILIRUBIN,TOTAL 4.6 mg/dL (0.2-1.0); CALCIUM 7.8 mg/dL (8.5-10.3); CREATININE 0.7 mg/dL (0.4-1.0); TOTAL PROTEIN 6.4 g/dL (6.7-8.2)
[2022-06-13 06:41] LABS: HGB - HEMOGLOBIN 6.6 g/dL (12.0-16.0)
[2022-06-13] MEDS ORDERED: BENZOCAINE/MENTHOL LOZENGE MM PRN (06:52)
[2022-06-13] MEDS: POTASSIUM CHLORIDE 10 MEQ CAPSULE PO SCH ×2 (07:57→16:47)
[2022-06-13] MEDS: PRENATAL VITAMIN TABLET PO SCH (07:57)
[2022-06-13] MEDS: oxyCODONE 5 MG TABLET PO PRN ×3 (08:43→18:23)
[2022-06-13] MEDS: SPIRONOLACTONE 25 MG TABLET PO SCH (08:43)
[2022-06-13] MEDS: THIAMINE 100 MG TABLET PO SCH (08:43)
[2022-06-13] MEDS: NICOTINE 7 MG PATCH TOP SCH (08:44)
[2022-06-13] MEDS: LACTULOSE 10 GM /15 ML UDC PO SCH (08:44)
[2022-06-13] MEDS: SODIUM CHLORIDE FLUSH 0.9% 10 ML SYRINGE IVP SCH ×2 (08:44→16:48)
[2022-06-13] MEDS ORDERED: SPIRONOLACTONE 25 MG TABLET PO SCH (09:00)
[2022-06-13 09:01] LABS: MAGNESIUM 2.2 mg/dL (1.7-2.8)
--- NOTE | 2022-06-13 09:09 | PROVIDER PROGRESS NOTE ---
Subjective - Prog Note Date Prog Note Date: 06/13/22 Prog Note Time: 09:02 - Subjective Pt reports feeling: No change Subjective: 41 year old female with chronic alcohol abuse, liver cirrhosis with ascites, alcohol withdrawal, and hypertension presented to the ED by ambulance yesterday with altered mental status, abdominal pain, and large ascites with marked abdominal distention. Her toxicology report yesterday was positive for ethyl alcohol level of 30.7. She indicates no intention to stop alcohol consumption. She drinks up to 6 24 oz 9% beers daily. She also smokes 1/2 pack cigarettes daily. She is alert and oriented. She appears tired and in moderate distress. Her speech is slow. She indicates that she has difficulty sleeping. She is having diffuse abdominal pain that is worse with light palpation. She has significant distention and dullness to percussion. She says that she has a hard time taking in deep breathes due to discomfort and she is developing a cough. She is asking for cough drops. She has a mild expiratory wheeze on auscultation. She has muscle wasting in her arms and legs. She has mild peripheral edema and light palpation of her legs and feet causes her pain. 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 She appears pale and has multiple spider angiomas on her face. She reports no bowel movements in two days, which she thinks is making her abdominal pain worse because she normally has 2-3 loose stools per day. She does have flatus. She indicates that she is not urinating much and that her urine is dark orange. She denies dysuria. She denies nausea, vomiting, or headache. Negative for seizures, fever, or asterixis. Objective - Vital Signs/Intake & Output Vital Signs: Vital Signs x48h Temp Pulse Resp BP BP BP Pulse Ox 06/13/22 08:38 36.8 C 115 H 16 109/61 95 06/13/22 03:17 110 H 93/52 L 06/13/22 03:03 114 H 95/50 L 06/13/22 02:51 96/54 L 06/13/22 02:30 108 H 101/55 L 06/13/22 02:21 115/68 Intake & Output: Intake & Output 06/10/22 06/11/22 06/12/22 06/13/22 23:59 23:59 23:59 23:59 Intake Total 450 300 Output Total 80 100 Balance 370 200 - Objective General Appearance: positive: Moderate distress, Lethargic Eyes Bilateral: positive: Normal inspection, PERRL, EOMI, No lid inflammation, Conjunctivae nml, No scleral icterus ENT: positive: ENT inspection nml, Pharynx nml, No signs of dehydration Neck: positive: Nml inspection, Thyroid nml, No JVD, Trachea midline Respiratory: positive: Wheezes (expiratory) Cardiovascular: positive: No murmur, No gallop, Tachycardia, Other (Decreased capillary refill) Peripheral Pulses: 1+ Dorsalis pedis (R) (Hard to assess due to pain with light palpation), 1+ Dorsalis pedis (L) (Hard to assess due to pain with light palpation), 2+ Radial (R), 2+ Radial (L) Abdomen: positive: Guarding, Other (Positive for abdominal tenderness, significant distention, and diminshed bowel sounds. Hard to assess for organomegaly.) Skin: positive: Warm, Pallor Extremities: positive: Full ROM, Pedal edema (1+), Other (Tenderness to light palpation in lower legs and feet) Neurologic/Psychiatric: positive: Oriented x3, Sensation nml, Mood/affect nml, Weakness, Slurred/abnml speech (slow speech) - Lab Results Fish Bones: 06/13/22 05:54 06/13/22 05:54 Other Labs: Lab Results x24hrs 06/13/22 06/13/22 06/13/22 Range/Units 05:54 05:54 05:54 WBC 9.2 (4.8-10.8) x10^3/uL RBC 1.94 L (4.20-5.40) 10^6/uL Hgb 6.6 L* (12.0-16.0) g/dL Hct 20.2 L (37.0-47.0) % MCV 104.1 H (81.0-99.0) fL MCH 34.0 H (27.0-31.0) pg MCHC 32.7 (32.0-36.0) g/dL RDW 17.4 H (12.0-15.0) % Plt Count 250 (130-450) 10^3/uL MPV 10.9 H (7.9-10.8) fL Neut # (Auto) 6.4 (1.5-6.6) 10^3/uL Lymph # (Auto) 1.3 L (1.5-3.5) 10^3/uL [place] # (Auto) 1.3 H (0.0-1.0) 10^3/uL Eos # (Auto) 0.0 (0.0-0.7) 10^3/uL Baso # (Auto) 0.1 (0.0-0.1) 10^3/uL Absolute Nucleated RBC 0.00 x10^3/uL Nucleated RBC % 0.0 /100WBC PT (9.9-12.6) secs INR (0.8-1.2) APTT (24.9-33.3) secs Sodium 130 L (135-145) mmol/L Potassium 3.0 L (3.5-5.0) mmol/L Chloride 92 L (101-111) mmol/L Carbon Dioxide 29 (21-32) mmol/L Anion Gap 9.0 (6-13) BUN 5 L (6-20) mg/dL Creatinine 0.7 (0.4-1.0) mg/dL Estimated GFR (MDRD) 93 (>89) Glucose 114 H (70-100) mg/dL Calcium 7.8 L (8.5-10.3) mg/dL Phosphorus 2.0 L (2.5-4.6) mg/dL Magnesium 2.2 (1.7-2.8) mg/dL Total Bilirubin 4.6 H (0.2-1.0) mg/dL AST 102 H (10-42) IU/L ALT 17 (10-60) IU/L Alkaline Phosphatase 223 H (42-121) IU/L Ammonia (7-35) umol/L Total Protein 6.4 L (6.7-8.2) g/dL Albumin 1.7 L (3.2-5.5) g/dL Globulin 4.7 H (2.1-4.2) g/dL Albumin/Globulin Ratio 0.4 L (1.0-2.2) Lipase (22-51) U/L Urine HCG, Qual Urine Opiates Screen (NEGATIVE) Ur Oxycodone Screen (NEGATIVE) Urine Methadone Screen (NEGATIVE) Ur Propoxyphene Screen (NEGATIVE) Ur Barbiturates Screen (NEGATIVE) Ur Tricyclics Screen (NEGATIVE) Ur Phencyclidine Scrn (NEGATIVE) Ur Amphetamine Screen (NEGATIVE) U Methamphetamines Scrn (NEGATIVE) U Benzodiazepines Scrn (NEGATIVE) Urine Cocaine Screen (NEGATIVE) U Cannabinoids Screen (NEGATIVE) Ethyl Alcohol mg/dL SARS-CoV-2 (PCR) 06/12/22 06/12/22 06/12/22 Range/Units 20:30 11:27 10:48 WBC (4.8-10.8) x10^3/uL RBC (4.20-5.40) 10^6/uL Hgb (12.0-16.0) g/dL Hct (37.0-47.0) % MCV (81.0-99.0) fL MCH (27.0-31.0) pg MCHC (32.0-36.0) g/dL RDW (12.0-15.0) % Plt Count (130-450) 10^3/uL MPV (7.9-10.8) fL Neut # (Auto) (1.5-6.6) 10^3/uL Lymph # (Auto) (1.5-3.5) 10^3/uL [place] # (Auto) (0.0-1.0) 10^3/uL Eos # (Auto) (0.0-0.7) 10^3/uL Baso # (Auto) (0.0-0.1) 10^3/uL Absolute Nucleated RBC x10^3/uL Nucleated RBC % /100WBC PT (9.9-12.6) secs INR (0.8-1.2) APTT (24.9-33.3) secs Sodium (135-145) mmol/L Potassium (3.5-5.0) mmol/L Chloride (101-111) mmol/L Carbon Dioxide (21-32) mmol/L Anion Gap (6-13) BUN (6-20) mg/dL Creatinine (0.4-1.0) mg/dL Estimated GFR (MDRD) (>89) Glucose (70-100) mg/dL Calcium (8.5-10.3) mg/dL Phosphorus 1.6 L (2.5-4.6) mg/dL Magnesium 1.6 L (1.7-2.8) mg/dL Total Bilirubin (0.2-1.0) mg/dL AST (10-42) IU/L ALT (10-60) IU/L Alkaline Phosphatase (42-121) IU/L Ammonia (7-35) umol/L Total Protein (6.7-8.2) g/dL Albumin (3.2-5.5) g/dL Globulin (2.1-4.2) g/dL Albumin/Globulin Ratio (1.0-2.2) Lipase (22-51) U/L Urine HCG, Qual NEGATIVE Urine Opiates Screen NEGATIVE (NEGATIVE) Ur Oxycodone Screen POSITIVE H (NEGATIVE) Urine Methadone Screen NEGATIVE (NEGATIVE) Ur Propoxyphene Screen NEGATIVE (NEGATIVE) Ur Barbiturates Screen NEGATIVE (NEGATIVE) Ur Tricyclics Screen NEGATIVE (NEGATIVE) Ur Phencyclidine Scrn NEGATIVE (NEGATIVE) Ur Amphetamine Screen NEGATIVE (NEGATIVE) U Methamphetamines Scrn NEGATIVE (NEGATIVE) U Benzodiazepines Scrn POSITIVE H (NEGATIVE) Urine Cocaine Screen NEGATIVE (NEGATIVE) U Cannabinoids Screen NEGATIVE (NEGATIVE) Ethyl Alcohol mg/dL SARS-CoV-2 (PCR) NOT DETECTED 06/12/22 06/12/22 06/12/22 Range/Units 10:48 10:48 10:48 WBC (4.8-10.8) x10^3/uL RBC (4.20-5.40) 10^6/uL Hgb (12.0-16.0) g/dL Hct (37.0-47.0) % MCV (81.0-99.0) fL MCH (27.0-31.0) pg MCHC (32.0-36.0) g/dL RDW (12.0-15.0) % Plt Count (130-450) 10^3/uL MPV (7.9-10.8) fL Neut # (Auto) (1.5-6.6) 10^3/uL Lymph # (Auto) (1.5-3.5) 10^3/uL [place] # (Auto) (0.0-1.0) 10^3/uL Eos # (Auto) (0.0-0.7) 10^3/uL Baso # (Auto) (0.0-0.1) 10^3/uL Absolute Nucleated RBC x10^3/uL Nucleated RBC % /100WBC PT 18.2 H (9.9-12.6) secs INR 1.7 H (0.8-1.2) APTT 32.2 (24.9-33.3) secs Sodium 129 L (135-145) mmol/L Potassium 2.6 L (3.5-5.0) mmol/L Chloride 89 L (101-111) mmol/L Carbon Dioxide 26 (21-32) mmol/L Anion Gap 14.0 H (6-13) BUN < 5 L (6-20) mg/dL Creatinine 0.6 (0.4-1.0) mg/dL Estimated GFR (MDRD) 111 (>89) Glucose 133 H (70-100) mg/dL Calcium 7.9 L (8.5-10.3) mg/dL Phosphorus (2.5-4.6) mg/dL Magnesium (1.7-2.8) mg/dL Total Bilirubin 5.3 H (0.2-1.0) mg/dL AST 99 H (10-42) IU/L ALT 18 (10-60) IU/L Alkaline Phosphatase 247 H (42-121) IU/L Ammonia 48.9 H (7-35) umol/L Total Protein 7.2 (6.7-8.2) g/dL Albumin 2.0 L (3.2-5.5) g/dL Globulin 5.2 H (2.1-4.2) g/dL Albumin/Globulin Ratio 0.4 L (1.0-2.2) Lipase 30 (22-51) U/L Urine HCG, Qual Urine Opiates Screen (NEGATIVE) Ur Oxycodone Screen (NEGATIVE) Urine Methadone Screen (NEGATIVE) Ur Propoxyphene Screen (NEGATIVE) Ur Barbiturates Screen (NEGATIVE) Ur Tricyclics Screen (NEGATIVE) Ur Phencyclidine Scrn (NEGATIVE) Ur Amphetamine Screen (NEGATIVE) U Methamphetamines Scrn (NEGATIVE) U Benzodiazepines Scrn (NEGATIVE) Urine Cocaine Screen (NEGATIVE) U Cannabinoids Screen (NEGATIVE) Ethyl Alcohol 30.7 mg/dL SARS-CoV-2 (PCR) 06/12/22 Range/Units 10:48 WBC 9.5 (4.8-10.8) x10^3/uL RBC 2.16 L (4.20-5.40) 10^6/uL Hgb 7.3 L (12.0-16.0) g/dL Hct 22.7 L (37.0-47.0) % MCV 105.1 H (81.0-99.0) fL MCH 33.8 H (27.0-31.0) pg MCHC 32.2 (32.0-36.0) g/dL RDW 17.0 H (12.0-15.0) % Plt Count 249 (130-450) 10^3/uL MPV 10.4 (7.9-10.8) fL Neut # (Auto) 7.1 H (1.5-6.6) 10^3/uL Lymph # (Auto) 0.9 L (1.5-3.5) 10^3/uL [place] # (Auto) 1.3 H (0.0-1.0) 10^3/uL Eos # (Auto) 0.0 (0.0-0.7) 10^3/uL Baso # (Auto) 0.1 (0.0-0.1) 10^3/uL Absolute Nucleated RBC 0.00 x10^3/uL Nucleated RBC % 0.0 /100WBC PT (9.9-12.6) secs INR (0.8-1.2) APTT (24.9-33.3) secs Sodium (135-145) mmol/L Potassium (3.5-5.0) mmol/L Chloride (101-111) mmol/L Carbon Dioxide (21-32) mmol/L Anion Gap (6-13) BUN (6-20) mg/dL Creatinine (0.4-1.0) mg/dL Estimated GFR (MDRD) (>89) Glucose (70-100) mg/dL Calcium (8.5-10.3) mg/dL Phosphorus (2.5-4.6) mg/dL Magnesium (1.7-2.8) mg/dL Total Bilirubin (0.2-1.0) mg/dL AST (10-42) IU/L ALT (10-60) IU/L Alkaline Phosphatase (42-121) IU/L Ammonia (7-35) umol/L Total Protein (6.7-8.2) g/dL Albumin (3.2-5.5) g/dL Globulin (2.1-4.2) g/dL Albumin/Globulin Ratio (1.0-2.2) Lipase (22-51) U/L Urine HCG, Qual Urine Opiates Screen (NEGATIVE) Ur Oxycodone Screen (NEGATIVE) Urine Methadone Screen (NEGATIVE) Ur Propoxyphene Screen (NEGATIVE) Ur Barbiturates Screen (NEGATIVE) Ur Tricyclics Screen (NEGATIVE) Ur Phencyclidine Scrn (NEGATIVE) Ur Amphetamine Screen (NEGATIVE) U Methamphetamines Scrn (NEGATIVE) U Benzodiazepines Scrn (NEGATIVE) Urine Cocaine Screen (NEGATIVE) U Cannabinoids Screen (NEGATIVE) Ethyl Alcohol mg/dL SARS-CoV-2 (PCR) Sepsis Event Note (H) - Evaluation Current Stage of Sepsis: Ruled out (afebrile, no leukocytosis, normal RR) - Sepsis Criteria Sepsis Criteria: Recorded Heart Rate greater than 90 bpm Assessment/Plan - Problem List (1) Alcoholic cirrhosis of liver with ascites Impression: She developed ascites and abdominal pain rapidly over a few weeks. She still has significant abdominal distention, large ascites, dullness to percussion, and diffuse abdominal pressure and pain on exam. Most likely has liver enlargement, but difficult to assess with distension and pain with even light palpation. Her bilirubin is 4.6, yesterday 5.3. Her AST 102, yesterday 99. Her alkaline phosphatase is 223, yesterday 247. Suggestive of alcoholic hepatitis. She is hypotensive and mildly tachycardic due to cirrhosis. She is chronically intravascularly depleted. INR 1.7 and PT 18.2. Suggestive of severe hepatocellular disease. Radiologist indicated that INR needs to be at or below 1.5 to proceed with paracentesis. Plan: 1. Will give FFP and then draw stat INR. Proceed with paracentesis when INR 1.5 or below. Monitor for potential risks of plasma exposure including infection and volume overload. 2. Continue spironolactone 100 mg per day plus oral furosemide 40 mg per day. Monitor for urine output. Stop diuretics if serum sodium is less than 120 or serum creatinine greater than 2. Her serum sodium is 130 and creatinine 0.7 now. 3. Give albumin 4. Give vit K 5. Restriction of sodium. Can give water and juice. Evaluate daily weight. 6. Recommend alcohol abstinence. (2) Abdominal pain Impression: Due to ascites from alcoholic cirrhosis of the liver. She has not had a bowel movement for 2 days. She normally has loose stools 2-3 times per day. This could be adding to her discomfort. She is having flatus. She is afebrile. Her mental status is normal. Plan: Continue diuresis. Will have paracentesis once INR at or below 1.5 per radiologist. This should relieve a significant amount of discomfort. Will continue to monitor for fever or altered mental status, which could suggest spontaneous bacterial peritonitis. Qualifiers: Abdominal location: generalized Qualified Code(s): R10.84 - Generalized abdominal pain (3) Anemia Impression: RBC: 2.16 yesterday, 1.94 today Hgb: 7.3 yesterday, 6.6 today Hct: 22.7 yesterday, 20.2 today She is fatigued, pale, and has decreased capillary refill. Plan: Will give 1 unit blood. Qualifiers: Anemia type: unspecified type Qualified Code(s): D64.9 - Anemia, unspecified (4) Hypokalemia Impression: Potassium low at 2.6 yesterday, 3 today. She has moderate muscle weakness and muscle wasting in arms and legs. Her magnesium is normal today. Chloride is still low. Plan: Continue spironolactone and potassium chloride. Continue to monitor labs. (5) Peripheral edema Impression: Due to alcoholic liver cirrhosis and ascites. Plan: continue furosemide and spironolactone diuresis. IPC device for DVT prophylaxis. (6) Hepatic encephalopathy Impression: Grade I: She has mild change in behavior, slow speech, lethargy, and difficulty sleeping. Yesterday she had mild asterixis, however I did not observe that today. She does not have confusion, slurred speech, or nystagmus. Her ammonia level was elevated. She has hyponatremia and hypokalemia. Plan: monitor for worsening symptoms. Continue lactulose. (7) Alcohol abuse Impression: Plan: Monitor for signs of alcohol withdrawal. Continue diazepam. Recommend alcohol cessation. Consider baclofen treatment. (8) Secondary amenorrhea Impression: Her urine HCG was negative. This is reassuring that we don't need to worry about toxicity due to medications or alcohol. Plane: Follow up with PCP for evaluation/workup of cause of amenorrhea. Most likely due to malnutrition/muscle wasting due to chronic severe alcoholism. Could consider premature ovarian failure. Recommend improving diet, alcohol cessation, and taking a multivitamin.
[2022-06-13] MEDS: NEUTRA-PHOS 250 MG TABLET PO SCH ×2 (13:18→16:47)
[2022-06-13] MEDS ORDERED: LIDOCAINE-MPF 1% 5 ML VIAL ONE (13:59)
[2022-06-13] MEDS ORDERED: LIDOCAINE-MPF 1% 5 ML VIAL SUBQ ONE (15:10)
[2022-06-13 15:19] LABS: INR 1.7 (0.8-1.2); PT - PROTHROMBIN TIME 18.1 secs (9.9-12.6)
--- NOTE | 2022-06-13 15:43 | Ultrasound Report ---
PROCEDURE: Abdominal Paracentesis INDICATIONS: abd pain from ascitic distension TECHNIQUE: The indications, alternatives, benefits, risks, and complications of the procedure were explained to the patient. Written informed consent was obtained and placed in the chart. The abdomen and pelvis were examined sonographically, and an appropriate site was chosen for paracentesis. The skin was pre pared and draped in the usual sterile fashion, and 1% lidocaine was infiltrated from the skin down th rough the peritoneal surface. A 19-gauge catheter-covered needle was then introduced into the perito teresa space, the catheter was advanced and the needle was withdrawn, and thereafter peritoneal fluid w as withdrawn. The catheter was then removed and a dressing was applied. The fluid was discarded if the clinician did not order diagnostic testing of the fluid. COMPARISON: CT abdomen pelvis 05/12/2022 FINDINGS: Access site: Right lower quadrant Needle: One-Step centesis catheter with introducer needle. Fluid volume and description: 2.7 L clear Fluid sent for diagnostic testing: No Medications: 1% lidocaine for local anaesthesia. Complications: None. IMPRESSION: Successful ultrasound-guided paracentesis. Reviewed by: Lea Land MD on 06/13/2022 3:42 PM PST Approved by: Lea Land MD on 06/13/2022 3:42 PM PST Station ID: [id number]
[2022-06-13] MEDS ORDERED: PHYTONADIONE 10 MG/ML AMP PO ONE (15:51)
[2022-06-13] MEDS ORDERED: CHERRY SYRUP 10 ML UDC PO ONE (15:51)
[2022-06-14 05:01] LABS: BASOPHILS % (AUTO) 0.4 %; EOSINOPHILS # (AUTO) 0.1 10^3/uL (0.0-0.7); EOSINOPHILS % (AUTO) 0.6 %; HCT - HEMATOCRIT 24.8 % (37.0-47.0); LYMPHOCYTES # (AUTO) 1.5 10^3/uL (1.5-3.5); LYMPHOCYTES % (AUTO) 14.5 %; MEAN CORPUSCULAR HEMOGLOBIN 33.5 pg (27.0-31.0); MEAN CORPUSCULAR HGB CONC 32.3 g/dL (32.0-36.0); MEAN CORPUSCULAR VOLUME 103.8 fL (81.0-99.0); MEAN PLATELET VOLUME 10.7 fL (7.9-10.8); MONOCYTES # (AUTO) 1.4 10^3/uL (0.0-1.0); MONOCYTES % (AUTO) 13.9 %; NEUTROPHILS # (AUTO) 7.1 10^3/uL (1.5-6.6); NEUTROPHILS % (AUTO) 70.1 %; PLT - PLATELET COUNT 242 10^3/uL (130-450); RED BLOOD COUNT 2.39 10^6/uL (4.20-5.40); RED CELL DISTRIBUTION WIDTH 18.1 % (12.0-15.0); WHITE BLOOD COUNT 10.1 x10^3/uL (4.8-10.8)
[2022-06-14 05:14] LABS: ALBUMIN 1.7 g/dL (3.2-5.5); ALBUMIN/GLOBULIN RATIO 0.4 (1.0-2.2); BILIRUBIN,TOTAL 5.9 mg/dL (0.2-1.0); CALCIUM 7.9 mg/dL (8.5-10.3); CREATININE 0.5 mg/dL (0.4-1.0); POTASSIUM 3.4 mmol/L (3.5-5.0); TOTAL PROTEIN 6.2 g/dL (6.7-8.2)
[2022-06-14] MEDS: SODIUM CHLORIDE FLUSH 0.9% 10 ML SYRINGE IVP SCH ×2 (05:19→07:44)
[2022-06-14] MEDS: LACTULOSE 10 GM /15 ML UDC PO SCH (07:42)
[2022-06-14] MEDS: NEUTRA-PHOS 250 MG TABLET PO SCH ×2 (07:43→12:43)
[2022-06-14] MEDS: POTASSIUM CHLORIDE 10 MEQ CAPSULE PO SCH (07:43)
[2022-06-14] MEDS: PRENATAL VITAMIN TABLET PO SCH (07:43)
[2022-06-14] MEDS: THIAMINE 100 MG TABLET PO SCH (07:43)
[2022-06-14] MEDS: SPIRONOLACTONE 25 MG TABLET PO SCH (07:44)
[2022-06-14] MEDS: NICOTINE 7 MG PATCH TOP SCH (07:44)
[2022-06-14] MEDS: oxyCODONE 5 MG TABLET PO PRN (07:45)
[2022-06-14 08:41] LABS: INR 1.6 (0.8-1.2); PT - PROTHROMBIN TIME 17.6 secs (9.9-12.6)
--- NOTE | 2022-06-14 11:18 | Discharge Plan ---
Discharge Plan Problem Reviewed?: Yes Disposition: Home, Self Care Condition: Fair Prescriptions: Spironolactone [Aldactone] 50 mg PO DAILY #60 tablet Lactulose 15 ml PO DAILY #30 ea Diet: Regular Activity Restrictions: Activity as Tolerated Shower Restrictions: No Driving Restrictions: Yes (No driving if intoxicated) Instruction Topics: ED Cirrhosis Liver Health Concerns: You were hospitalized in order to have fluid removed from your abdomen. This is ascites fluid. It is caused by liver failure. The liver failure is caused by your alcohol abuse. Please have a hospital follow-up appointment with your Primary Care Provider, who will have the results of the fluid, to review with you. You need to decrease your alcohol intake! You may resume all your usual pre-hospital medications, except that the Spironolactone dose needs to be 50 mg not 25 mg. Plan of Treatment: As above. You are also being discharged with a new medication, Lactulose. It was electronically prescribed to your pharmacy. Care Goals: Improvement in symptoms and stabilization are the goals. Assessment: These written instructions are provided for the patient as a reminder. Additional Instructions or Follow Up instructions: If you have new or worsening symptoms, call your PCP for advice or come to the ER No Smoking: If you smoke, Please STOP! Call for help. Follow-up with: Rose Patterson MD [Primary Care Provider] -
--- NOTE | 2022-06-14 11:25 | DISCHARGE SUMMARY ---
Discharge Summary Admit Date: 06/12/22 Discharge Date: 06/14/22 Discharging Provider: Dr Cheryl Barreto Primary Care Provider: Dr Rose Patterson Code Status: Attempt Resuscitation Condition at Discharge: Fair Discharge Disposition: 01 Home, Self Care - HPI History of Present Illness: 41 year old female with chronic alcohol abuse, liver cirrhosis with ascites, alcohol withdrawal, and hypertension presented to the ED by ambulance with altered mental status, abdominal pain, and large ascites with marked abdominal distention. She states that she has had chronic 5/10 abdominal pain for the past several weeks. She reports alcohol consumption today and her toxicology report was positive for ethyl alcohol level of 30.7. She smokes cigarettes daily. She denies fever or vomiting. She is tachycardic and short of breath with walking. She has peripheral edema. She is normotensive and afebrile. She is anemic with hemoglobin 7.3. She is hypokalemic at 2.6. In the ED, they began replacing her potassium and started her on Lasix and spironolactone to minimize ascitic fluid volume and decrease peripheral edema. She is alert and oriented. She appears in moderate distress. Her speech is slow and labored. Her abdomen is very distended and dull to percussion. It is hard to measure her liver and spleen due to her distention, but she indicates that she feels like her liver is pressing up into her chest. She indicates that she has diffuse abdominal pain and pressure, which is causing her chest discomfort. She has muscle wasting in her arms and legs. She has mild peripheral edema and palpation of her lower legs causes her pain. She has numerous spider angiomas on her face. She denies fever, weight loss, diarrhea, nausea, early satiety, and night sweats. We are bringing her in for abdominal pain, and she will need a paracentesis, make sure she is not having spontaneous bacterial peritonitis (no fever, no white cell count). I worry that she may go through alcohol withdrawal, therefore we we will watch closely. Potassium will be supplemented. Magnesium will be supplemented. And will start Lactulose for probable metabolic encephalopathy due to cirrhosis. test has been ordered. - HOSPITAL COURSE Hospital Course: (1) Alcoholic cirrhosis of liver with ascites She developed ascites and abdominal pain rapidly over a few weeks. Her bilirubin was 5.3>> 4.6>> 5.9. Her AST/ALT was 99/18>> 102/17>> 123/15. Her Alk phos was 223>> 247. She also had INR of 1.7, suggestive of alcoholic hepatitis/liver failure. She received FFP and then Radiology preformed a paracentesis. It is unc lear if this was her first paracentesis. 2700 cc of clear yellow fluid was withdrawn. We continued her spironolactone. We advised alcohol abstinence. She stated she had no intention of stopping alcohol use. (2) Abdominal pain Likely due to large ascites from alcoholic cirrhosis of the liver, and possibly from constipation, as she had not had a bowel movement for 2 days. She normally has loose stools 2-3 times per day. She was having flatus. Her discomfort diminished after the paracentesis. (3) Anemia Hgb was 7.3 at admission, then dropped to 6.6 the following day. She received 1 unit of blood. Hgb at discharge was 9. (4) Hypokalemia Potassium was replaced. (5) Peripheral edema Likely due to alcoholic liver cirrhosis and ascites. We continued her Spironolactone for diuresis. (6) Hepatic encephalopathy Grade I: She had slow speech, lethargy, and mild asterixis. Her ammonia level was elevated at 45>> 64 and she was started on Lactulose orally and discharged on Lactulose as a new med. Cessation of alcohol abuse was advised. (7) Alcohol abuse A CIWA protocol and prn Valium were ordered. She did not score high and did not need any benzodiazepines while here. She said she had no intention of stopping alcohol use. (8) Secondary amenorrhea Her urine HCG was negative. She needs follow up with PCP for evaluation/workup of cause of amenorrhea. Most likely due to malnutrition/muscle wasting due to chronic severe alcoholism. Could consider premature ovarian failure. Recommend improving diet, alcohol cessation, and taking a multivitamin. - ALLERGIES Allergies/Adverse Reactions: Allergies Allergy/AdvReac Type Severity Reaction Status Date / Time amoxicillin Allergy Unknown Unknown Verified 05/26/22 15:48 - MEDICATIONS Home Medications: Ambulatory Orders Medication Instructions Recorded Confirmed LORazepam [Ativan] 1 mg PO TID PRN #14 tablet 05/12/22 06/12/22 hydroCHLOROthiazide [Hydrodiuril] 25 mg PO DAILY #30 tablet 05/26/22 06/12/22 Lactulose 15 ml PO DAILY #30 ea 06/14/22 Spironolactone [Aldactone] 50 mg PO DAILY #60 tablet 06/14/22 - PHYSICAL EXAM AT DISCHARGE General Appearance: positive: No acute distress, Other (Small, poorly kempt fem blake, looks older than her stated age) Eyes Bilateral: positive: Other (scleral icterus) ENT: positive: No signs of dehydration, Other (poor dentition) Neck: positive: Nml inspection, No JVD Respiratory: positive: No respiratory distress Cardiovascular: positive: Regular rate & rhythm Abdomen: positive: Other (distended, soft, non-tender) Skin: positive: Other (icteris) Neurologic/Psychiatric: positive: Oriented x3, Motor nml, Other (speech slow but not slurred, no tremor) - LABS Result Diagrams: 06/14/22 04:33 06/14/22 04:33 - DIAGNOSTIC IMAGING Diagnostic Imaging Results: Final report reviewed - SEPSIS Current Stage of Sepsis: Ruled out (afebrile, no leukocytosis, normal RR) Sepsis Criteria: Recorded Heart Rate greater than 90 bpm - FOLLOW UP Follow Up: See PCP for further med adjustments - TIME SPENT Time Spent in Discharge (Minutes): 30
[2022-06-14 13:18] VITALS: BP 111/65
[2022-06-14] MEDS ORDERED: LACTULOSE 10 GM /15 ML UDC PO SCH (17:00)
== END 2022-06-14 16:00 | disposition home or self-care (01) ==
LOC: EDUNIT# → ED 10:17 → MS2 12:00
PROVIDERS: ADMIT Specialist; ATTEND Internal Medicine
DX: K70.31 Alcoholic cirrhosis of liver with ascites (principal); F10.10 Alcohol abuse, uncomplicated; Y90.1 Blood alcohol level of 20-39 mg/100 ml; E87.6 Hypokalemia; I10 Essential (primary) hypertension; F17.210 Nicotine dependence, cigarettes, uncomplicated; E87.1 Hypo-osmolality and hyponatremia; E83.42 Hypomagnesemia; N91.1 Secondary amenorrhea; K76.82 Hepatic encephalopathy; Z20.822 Contact with and (suspected) exposure to COVID-19; Z91.14 Patient's other noncompliance with medication regimen; F17.200 Nicotine dependence, unspecified, uncomplicated
CPT/HCPCS: 36415; 36430; 49083; 80053; 80306; 80320; 81025; 82140; 83690; 83735; 84100; 85025; 85610; 85730; 86850; 86900; 86901; 86920; 87635; 96365; 96372; 96375; 99284; 99285; A9270; G0378; P9016; P9017

== ENCOUNTER 2022-07-07 08:22 | Inpatient (IN) | payer MEDICAID ==
--- NOTE | 2022-07-07 09:40 | ED Physician Documentation ---
PD HPI DYSPNEA - Stated complaint Stated Complaint: SOA - Chief complaint Chief Complaint: Resp - History obtained from History obtained from: Patient, Family - History of Present Illness Timing - onset: How many days ago (3-4) Timing - onset during: Rest Timing - duration: Days (3-4) Timing - details: Gradual onset, Still present Inciting event(s): Other (increasing abdominal girth with ascities) Improved by: Rest, Sitting up Worsened by: Exertion, Coughing Associated symptoms: Cough, Unilateral edema. No: Fever Similar symptoms before: Diagnosis (liver failure with ascities and anemia.) Recently seen: Admitted - Additional information Additional information: Azul Ward is a 41-year-old alcoholic female who presents to the emergency department today with increasing ascites and difficulty breathing secondary to the size of the ascites. She has had admission to the hospital last month receiving a transfusion of blood and paracentesis at that time the patient refused to discontinue alcohol. She does indicate that she is decreased her alcohol intake. She recalls that her mother of similar affliction. She is accompanied here today by a male as400 developer who assist with history. Review of Systems Constitutional: denies: Fever Eyes: denies: Decreased vision Ears: denies: Ear pain Nose: denies: Rhinorrhea / runny nose, Congestion Throat: denies: Sore throat Cardiac: denies: Chest pain / pressure, Palpitations Respiratory: reports: Dyspnea, Cough GI: reports: Abdominal Swelling, Diarrhea. denies: Nausea, Vomiting : denies: Dysuria, Frequency Skin: denies: Rash Musculoskeletal: reports: Extremity swelling. denies: Neck pain, Back pain, Extremity pain Neurologic: reports: Generalized weakness. 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 She is not on control pills. She is possibly sexually active, unclear do to unreliable historian.) : None HEENT: None Psych: None Musculoskeletal: None Derm: None - Past Surgical History Past Surgical History: Yes General: Other - Present Medications Home Medications: Ambulatory Orders Medication Instructions Recorded Confirmed LORazepam [Ativan] 1 mg PO TID PRN #14 tablet 12/22/22 01/22/23 hydroCHLOROthiazide [Hydrodiuril] 25 mg PO DAILY #30 tablet 05/26/22 06/12/22 Lactulose 15 ml PO DAILY #30 ea 06/14/22 Spironolactone [Aldactone] 50 mg PO DAILY #60 tablet 06/14/22 - Allergies Allergies/Adverse Reactions: Allergies Allergy/AdvReac Type Severity Reaction Status Date / Time amoxicillin Allergy Unknown Unknown Verified 07/07/22 08:48 - Social History Does the pt smoke?: Yes Smoking Status: Current every day smoker Does the pt drink ETOH?: Yes Does the pt have substance abuse?: Yes - Immunizations Immunizations are current?: No Immunizations: TDAP current <10years - POLST Patient has POLST: No POLST Status: Full Code PD ED PE NORMAL - Vitals Vital signs reviewed: Yes (tachy ) - General General: No acute distress, Well developed/nourished - HEENT HEENT: Atraumatic, PERRL, EOMI - Neck Neck: Supple, no meningeal sign, No bony TTP - Cardiac Cardiac: Other (regular and tachycardic) - Respiratory Respiratory: No respiratory distress, Clear bilaterally - Abdomen Abdomen: Other (distended and firm without tenderness. Ascites is present and obstructing diaphragmatic excursion .) - Back Back: No CVA TTP, No spinal TTP - Derm Derm: Normal color, Warm and dry, Other (There are the telangiectasia consistent with a peripheral stigmata of advanced liver disease.) - Extremities Extremities: No deformity, Other (Bilateral pitting edema to the thigh) - Neuro Neuro: Alert and oriented X 3, director of direct marketing 2-12 intact, No motor deficit, No sensory deficit, Other (Speech is with 1 to 2-second delay mumbling in nature with suspect content) Eye Opening: Spontaneous Motor: Obeys Commands Verbal: Oriented GCS Score: 15 - Psych Psych: Normal mood, Normal affect Results - Vitals Vitals: Vital Signs - 24 hr 07/07/22 07/07/22 08:45 09:45 Temperature 36.1 C L Heart Rate 128 H 128 H Respiratory 22 21 Rate Blood Pressure 128/74 130/83 H O2 Saturation 99 97 Oxygen O2 Source Room air - Labs Labs: Laboratory Tests 07/07/22 07/07/22 07/07/22 09:51 09:51 09:51 WBC 8.7 RBC 2.16 L Hgb 7.3 L Hct 22.7 L MCV 105.1 H MCH 33.8 H MCHC 32.2 RDW 17.7 H Plt Count 78 L MPV 10.6 Neut # (Auto) 6.5 Lymph # (Auto) 1.1 L [place] # (Auto) 1.0 Eos # (Auto) 0.1 Baso # (Auto) 0.0 Absolute Nucleated RBC 0.00 Nucleated RBC % 0.0 PT 17.4 H INR 1.6 H Sodium 132 L Potassium 3.1 L Chloride 98 L Carbon Dioxide 21 Anion Gap 13.0 BUN < 5 L Creatinine 0.3 L Estimated GFR (MDRD) 246 Glucose 114 H Lactic Acid Calcium 8.0 L Total Bilirubin 6.1 H AST 124 H ALT 18 Alkaline Phosphatase 197 H Ammonia Total Protein 6.9 Albumin 1.8 L Globulin 5.1 H Albumin/Globulin Ratio 0.4 L Lipase 44 Ethyl Alcohol < 5.0 07/07/22 07/07/22 09:51 09:51 WBC RBC Hgb Hct MCV MCH MCHC RDW Plt Count MPV Neut # (Auto) Lymph # (Auto) [place] # (Auto) Eos # (Auto) Baso # (Auto) Absolute Nucleated RBC Nucleated RBC % PT INR Sodium Potassium Chloride Carbon Dioxide Anion Gap BUN Creatinine Estimated GFR (MDRD) Glucose Lactic Acid 1.2 Calcium Total Bilirubin AST ALT Alkaline Phosphatase Ammonia 41.3 H Total Protein Albumin Globulin Albumin/Globulin Ratio Lipase Ethyl Alcohol - Rads (name of study) chest Radiology: Prelim report reviewed (Impression: No infiltrate in the left midlung with a 1 cm central lucency. This could be summation artifact, recommend PA and lateral view of the chest.), EMP read indepedently, See rad report PD Medical Decision Making - ED course Complexity details: reviewed old records, reviewed results, re-evaluated patient, considered differential, d/w patient, d/w family Reviewed Lab Results: We ordered and reviewed hematology, chemistries, anticoagulation and urinalysis. We found multiple abnormalities including critically low hemoglobin and hematocrit similar to the patient's most recent admission to the hospital. Hemoglobin was 7.3 hematocrit 22.7 INR is 1.6 chemistries showed a low serum sodium of 132 potassium 3.1 and chloride of 98. Total bilirubin 6.1 AST is elevated at 124 similar to prior alkaline phosphatase elevated at 197 similar to the value on 06/14/2022 ammonia is elevated at 41.3 lower than her previous number of 64.2 on 14 June. toxicology shows alcohol less than 5. ED course: 41-year-old female with advanced cirrhosis and ascites presents to the emergency department with tense ascites and difficulty breathing. She also reports cough associated with this. She has cut down on the amount of alcohol that she is drinking. We found her alcohol to be 0 today. Chest x-ray is concerning for the possibility of an infiltrate. Her laboratory values are concerning for a cr itically low hemoglobin and hematocrit. The patient's findings and need for further medical intervention are similar to her recent most recent admission. The case is discussed with our hospitalist Dr. Bauman who graciously agrees to put the patient in the hospital for further treatment. Anticipated treatment is blood transfusion, drainage of ascites and treatment of pneumonia. Departure - Departure Disposition: 66 [facility] DC/Xfer Clinical Impression: Alcoholic cirrhosis of liver with ascites, Hypokalemia, Peripheral edema Anemia Qualifiers: Anemia type: unspecified type Qualified Code(s): D64.9 - Anemia, unspecified Pneumonia Qualifiers: Pneumonia type: due to unspecified organism Laterality: left Lung location: upper lobe of lung Qualified Code(s): J18.9 - Pneumonia, unspecified organism Condition: Serious
[2022-07-07 10:01] LABS: BASOPHILS % (AUTO) 0.2 %; EOSINOPHILS # (AUTO) 0.1 10^3/uL (0.0-0.7); EOSINOPHILS % (AUTO) 0.6 %; HCT - HEMATOCRIT 22.7 % (37.0-47.0); HGB - HEMOGLOBIN 7.3 g/dL (12.0-16.0); LYMPHOCYTES # (AUTO) 1.1 10^3/uL (1.5-3.5); LYMPHOCYTES % (AUTO) 12.5 %; MEAN CORPUSCULAR HEMOGLOBIN 33.8 pg (27.0-31.0); MEAN CORPUSCULAR HGB CONC 32.2 g/dL (32.0-36.0); MEAN CORPUSCULAR VOLUME 105.1 fL (81.0-99.0); MEAN PLATELET VOLUME 10.6 fL (7.9-10.8); MONOCYTES % (AUTO) 11.1 %; NEUTROPHILS # (AUTO) 6.5 10^3/uL (1.5-6.6); PLT - PLATELET COUNT 78 10^3/uL (130-450); RED BLOOD COUNT 2.16 10^6/uL (4.20-5.40); RED CELL DISTRIBUTION WIDTH 17.7 % (12.0-15.0); WHITE BLOOD COUNT 8.7 x10^3/uL (4.8-10.8)
[2022-07-07 10:07] LABS: INR 1.6 (0.8-1.2); PT - PROTHROMBIN TIME 17.4 secs (9.9-12.6)
[2022-07-07 10:13] LABS: ALBUMIN 1.8 g/dL (3.2-5.5); ALBUMIN/GLOBULIN RATIO 0.4 (1.0-2.2); ALKALINE PHOSPHATASE 197 IU/L (42-121); ALT ALANINE AMINOTRANSFERASE 18 IU/L (10-60); AST ASPARTATE AMINOTRANSFERASE 124 IU/L (10-42); BILIRUBIN,TOTAL 6.1 mg/dL (0.2-1.0); BUN - BLOOD UREA NITROGEN < 5 mg/dL (6-20); CARBON DIOXIDE - CO2 21 mmol/L (21-32); CHLORIDE 98 mmol/L (101-111); CREATININE 0.3 mg/dL (0.4-1.0); ETOH - ETHANOL < 5.0 mg/dL; GFR - MDRD 246 (>89); GLUCOSE 114 mg/dL (70-100); LIPASE 44 U/L (22-51); POTASSIUM 3.1 mmol/L (3.5-5.0); SODIUM 132 mmol/L (135-145); TOTAL PROTEIN 6.9 g/dL (6.7-8.2)
--- NOTE | 2022-07-07 10:14 | XRAY Report ---
PROCEDURE: Chest 1 View X-Ray INDICATIONS: soa TECHNIQUE: One view of the chest was acquired. COMPARISON: None. FINDINGS: Surgical changes and devices: None. Lungs and pleura: An infiltrate in the left mid lung is present with a 1 cm central lucency. No pneu mothorax or pleural effusion. Mediastinum: Mediastinal contours appear normal. Heart size is normal. Bones and chest wall: No suspicious bony lesions. Overlying soft tissues appear unremarkable. IMPRESSION: Infiltrate in the left midlung with a 1 cm central lucency. This could be summation artif act, remain PA and lateral view of the chest. Reviewed by: Alvin Ricks on 07/07/2022 10:12 AM [facility] Approved by: Alvin Ricks on 07/07/2022 10:12 AM [facility] Station ID: [id number]
--- NOTE | 2022-07-07 11:11 | XRAY Report ---
PROCEDURE: Chest 2 View X-Ray INDICATIONS: cough soa TECHNIQUE: 2 views of the chest were acquired. COMPARISON: 07/07/2022 at 9:23 AM FINDINGS: Surgical changes and devices: None. Lungs and pleura: No pleural effusions or pneumothorax. Mild diffuse reticular nodular pulmonary opa [place]. Superimposed increased airspace opacity within the left midlung. Mediastinum: Mediastinal contours are normal. Heart size is normal. Bones and chest wall: No suspicious bony abnormalities. Soft tissues appear unremarkable. IMPRESSION: Mild atypical pneumonia. Follow-up PA and lateral chest x-rays or chest CT is recommended to ensure r esolution, and to exclude underlying neoplasm. Reviewed by: Marni Cox MD on 07/07/2022 11:09 AM [facility] Approved by: Marni Cox MD on 07/07/2022 11:09 AM PST Station ID: [id number]
[2022-07-07] MEDS ORDERED: ONDANSETRON ODT 4 MG TABLET TL PRN (11:40)
[2022-07-07] MEDS ORDERED: SODIUM CHLORIDE FLUSH 0.9% 10 ML SYRINGE IVP PRN (11:40)
[2022-07-07] MEDS ORDERED: ONDANSETRON 4 MG/2 ML VIAL IVP PRN (11:40)
[2022-07-07 11:51] LABS: B. PARAPERTUSSIS- RESP PCR PAN NOT DETECTED; B. PERTUSSIS- RESP PCR PANEL NOT DETECTED; C. PNEUMONIAE- RESP PCR PANEL NOT DETECTED; CORONAVIRUS 229E-RESP PCR NOT DETECTED; CORONAVIRUS HKU1-RESP PCR NOT DETECTED; CORONAVIRUS NL63-RESP PCR NOT DETECTED; CORONAVIRUS OC43-RESP PCR NOT DETECTED; HUMAN METAPNEUMOVIRUS NOT DETECTED; INFLUENZA A- RESP PCR PANEL NOT DETECTED; INFLUENZA B - RESP PCR PANEL NOT DETECTED; M. PNEUMONIAE- RESP PCR PANEL NOT DETECTED; PARAINFLUENZA VIRUS 1 NOT DETECTED; PARAINFLUENZA VIRUS 2 NOT DETECTED; PARAINFLUENZA VIRUS 3 NOT DETECTED; PARAINFLUENZA VIRUS 4 NOT DETECTED; RHINOVIRUS/ENTEROVIRUS NOT DETECTED; RSV- RESP PCR PANEL NOT DETECTED; SARS-CoV-2 -RESP PCR PANEL NOT DETECTED
[2022-07-07] MEDS ORDERED: LIDOCAINE-MPF 1% 5 ML VIAL ONE (13:11)
[2022-07-07] MEDS ORDERED: LIDOCAINE-MPF 1% 5 ML VIAL TD ONE (14:03)
--- NOTE | 2022-07-07 14:11 | Ultrasound Report ---
PROCEDURE: Abdominal Paracentesis INDICATIONS: tense ascites w abd pain TECHNIQUE: The indications, alternatives, benefits, risks, and complications of the procedure were explained to the patient. Written informed consent was obtained and placed in the chart. The abdomen and pelvis were examined sonographically, and an appropriate site was chosen for paracentesis. The skin was pre pared and draped in the usual sterile fashion, and 1% lidocaine was infiltrated from the skin down th rough the peritoneal surface. A 19-gauge catheter-covered needle was then introduced into the perito teresa space, the catheter was advanced and the needle was withdrawn, and thereafter peritoneal fluid w as withdrawn. The catheter was then removed and a dressing was applied. The fluid was discarded if the clinician did not order diagnostic testing of the fluid. COMPARISON: None FINDINGS: Access site: Right lower quadrant Needle: One-Step centesis catheter with introducer needle. Fluid volume and description: Clear yovany fluid Fluid sent for diagnostic testing: No Medications: 1% lidocaine for local anaesthesia. Complications: None. IMPRESSION: Successful ultrasound-guided therapeutic paracentesis. Reviewed by: Alvin Ricks on 07/07/2022 2:09 PM PST Approved by: Alvin Ricks on 07/07/2022 2:09 PM PST Station ID: [id number]
[2022-07-07 14:33] LABS: CC,BF WBC 117 /mm^3
[2022-07-07 14:34] LABS: BF CLARITY CLEAR; BF SOURCE PERITONEAL; CC,BF RBC 3000 /mm^3
[2022-07-07 14:35] LABS: BF COLOR YELLOW
--- NOTE | 2022-07-07 14:39 | HISTORY & PHYSICAL EXAMINATION ---
Chief Complaint - Chief Complaint Chief Complaint: abdominal pain and SOB History of Present Illness - Admitted From Admitted From:: home - History Obtained From Records Reviewed: from last admission History obtained from: chart review and patient Exam Limitations: persistent cough interrupting exam - History of Present Illness HPI Comment/Other: 41 yo female with PMH of chronic alcohol abuse, liver cirrhosis with ascites, alcohol withdrawl, and HTN. Presented to the ED with increasing ascites and difficulty breathing secondary to the size of the ascites. She was admitted in May for similar issues. I encounter Azul lying in bed. She is pleasant and interactive, aware that her drinking is killing her and not willing to stop. Her complaint now is her persistent wet cough that interrupts our interview. She denies fever, chills, night sweats, endorses SOB but relates this to her abdomen pushing up on her chest making it hard to breath, states this is better after paracentesis today. 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 She is not on control pills. She is possibly sexually active, unclear do to unreliable historian.) : reports: None HEENT: reports: None Psych: reports: None Musculoskeletal: reports: None Derm: reports: None MRSA Hx?: No - Family & Social History Family History: Mother: (Complications related to alcoholism ), Father: Alcoholism, COPD/Emphysema, Sister: Alcoholism, Brother: Alcoholism Living Situation: With friend(s) - Substance History Use: Uses substance without health or social issues: Tobacco (1/2 pack per day) Use Issues: Intoxication Abuse: Recurrent use of substance despite neg consequences: Alcohol - POLST Patient has POLST: No POLST Status: Full Code Meds/Allgy - Home Medications Home Medications: Ambulatory Orders Medication Instructions Recorded Confirmed Ibuprofen 200 - 600 mg PO Q4H PRN 07/07/22 07/07/22 - Allergies Allergies/Adverse Reactions: Allergies Allergy/AdvReac Type Severity Reaction Status Date / Time amoxicillin Allergy Unknown Unknown Verified 07/07/22 08:48 Review of Systems - Constitutional Constitutional: reports: Poor appetite - Ears, Nose & Throat Ears, Nose & Throat: reports: Dental decay - Gastrointestinal Gastrointestinal: reports: Abdominal pain, Abdominal distention - Musculoskeletal Musculoskeletal: reports: Muscle weakness - Neurological Neurological: reports: Seizures (was withdrawing from alcohol) - Psychiatric Psychiatric: reports: Anxiety (about living situation) - All Other Systems All Other Systems: reports: Reviewed and negative Prior Level of Functionality: Does not drive, relies on her friend, to take her places. Exam - Vital Signs Reviewed Vital Signs: Yes Vital Signs: Vital Signs x48h Temp Pulse Pulse Resp BP BP Pulse Ox 07/07/22 14:25 37.3 C 127 H 18 118/69 99 07/07/22 11:30 127 H 22 113/62 97 07/07/22 09:45 128 H 21 130/83 H 97 07/07/22 08:45 36.1 C L 128 H 22 128/74 99 - Physical Exam General Appearance: positive: No acute distress (Pleasent 41 yo female who appe ars older than stated age, with poor dentition, think hair, and muscle wasting. Coughing in bed.) Eyes Bilateral: positive: Other (scleral icterus) ENT: positive: Dry mucous membranes Neck: positive: Nml inspection Respiratory: positive: Chest non-tender, Breath sounds nml Cardiovascular: positive: Regular rate & rhythm Peripheral Pulses: positive: 1+ Abdomen: positive: Hepatomegaly Back: positive: Nml inspection Skin: positive: Warm, Diaphoresis Extremities: positive: Pedal edema Neurologic/Psychiatric: positive: Oriented x3 Conclusion/Plan - Problem List (1) Alcoholic cirrhosis of liver with ascites Conclusion/Plan: AST/ALT greater than 2:1 ratio, personal history of alcoholic abuse, ascites and anasarca noted on exam, on interview she is not encephalopathic her thinking is clear and logical. MELD score is 22 points 19.6% estimated 3 mon mortality. Plan: paracentesis completed, consider albumin if SBP drops, continue home spi ronolactone, limit po intake to 1000mL (2) Abnormal chest xray Conclusion/Plan: abnormal chest xray showing nodular reticular findings. Plan: get CT tomorrow. (3) Hypokalemia Conclusion/Plan: K 3.1 this admission. Plan: Oral replacement potassium (4) Alcohol abuse Conclusion/Plan: Drinks 2 high gravity tall boys beer each day. She does not plan on stopping, she understands that this drinking will kill her. Plan: Begin advanced care planning. (5) Anemia Conclusion/Plan: H&H 7.3/22.7 Plan: recheck H&H tomorrow morning, plan to transfuse if H&H drops below 7/. Qualifiers: Anemia type: unspecified type Qualified Code(s): D64.9 - Anemia, unspecified (6) Alcohol withdrawal Conclusion/Plan: ETOH not found on tox screen on admit. Pt drinks daily and reports a history of a seizure because of alcohol withdrawal. Plan: watch for signs of withdrawal, CIWA screen, consider starting benzos early or giving alcohol to keep from going into withdrawal, give thiamine and banana bag (7) Smoking Conclusion/Plan: smoked 1ppd from age [age]. Smokes age 21-40 1/2 ppd. Plan: 7mg nicotine patch - Lab Results Fish Bones: 07/07/22 09:51 07/07/22 09:51 - Diagnostic Imaging Results Diagnostic Imaging Results: positive: Final report reviewed Diagnostic Imaging Results Comments: 07/07/22 CXR 2 view Mild atypical pneumonia. Follow-up PA and lateral chest xrays or chest CT is recommended to ensure resolution and to exclude underlying neoplasm. - EKG Results EKG Interpreted Independently: No Core Measures - Anticipated LOS I expect patient to be DC'd or transferred within 96 hours.: Yes - DVT/VTE - Prophylaxis VTE/DVT Device ordered at admit?: No Not Ordered - Low Risk: Low Risk (PT and INR elevated already)
[2022-07-07] MEDS: NICOTINE 7 MG PATCH TOP SCH (15:58)
[2022-07-07] MEDS: oxyCODONE 5 MG TABLET PO PRN ×2 (15:58→23:48)
--- NOTE | 2022-07-07 17:13 | PHARMACY PROGRESS NOTE ---
- Best Possible Medication History Admit Date and Time: 07/07/22 1140 Processed by: Pharmacy Medication History completed: Yes Patient Interview: Pt interview ONLY source As the person ultimately responsible for medication therapy, providers are able to order a medication from an existing home medication list in [facility] via the "Reconcile Routine" prior to Confirmation of that medication by application support consultant. Such practice is discouraged except when the physician, in their clinical judgment, deems that a medical need exists for a medication without regard to previous use.
[2022-07-07] MEDS: SODIUM CHLORIDE FLUSH 0.9% 10 ML SYRINGE IVP SCH ×2 (17:25→23:48)
[2022-07-07] MEDS ORDERED: iohexoL-300 100 ML VIAL ONE (18:26)
[2022-07-07] MEDS ORDERED: THIAMINE INJ 100 MG in SODIUM CHLORIDE 0.9% 50 ML IV ONE (18:45)
[2022-07-07 18:48] LABS: LYMPHOCYTES %,BODY FLUID 25 %; MACROPHAGES %,BODY FLUID 40 %; MESOTHELIAL %, BF 9 %; NEUTROPHILS %, BF 26 %
[2022-07-07] MEDS ORDERED: iohexoL-300 100 ML VIAL IVP ONE (19:08)
[2022-07-07 19:21] LABS: LEUKOCYTE ESTERASE, URINE NEGATIVE (NEGATIVE)
[2022-07-07 19:23] LABS: CLARITY,URINE SL. CLOUDY (CLEAR)
[2022-07-07 19:24] LABS: BILIRUBIN,URINE COLOR INTERFERENCE (NEGATIVE)
[2022-07-07 19:25] LABS: HCG UR QUAL NEGATIVE
[2022-07-07 19:36] LABS: OCCULT BLOOD,URINE SMALL (NEGATIVE)
[2022-07-07 19:38] LABS: BACTERIA,URINE Few /HPF (None Seen); SQUAMOUS EPITHELIAL CELL,UR MANY Squamous (<= Few); WBC,URINE 0-3 /HPF (0-5)
[2022-07-07] MEDS: ACETAMINOPHEN 325 MG TABLET PO PRN (23:57)
[2022-07-07] MEDS: BENZOCAINE/MENTHOL LOZENGE MM PRN (23:57)
[2022-07-08] MEDS: ACETAMINOPHEN 325 MG TABLET PO PRN (04:11)
[2022-07-08 04:38] LABS: BASOPHILS % (AUTO) 0.1 %; EOSINOPHILS # (AUTO) 0.1 10^3/uL (0.0-0.7); EOSINOPHILS % (AUTO) 0.7 %; HCT - HEMATOCRIT 20.9 % (37.0-47.0); LYMPHOCYTES # (AUTO) 1.6 10^3/uL (1.5-3.5); LYMPHOCYTES % (AUTO) 20.6 %; MEAN CORPUSCULAR HEMOGLOBIN 34.9 pg (27.0-31.0); MEAN CORPUSCULAR HGB CONC 32.5 g/dL (32.0-36.0); MEAN CORPUSCULAR VOLUME 107.2 fL (81.0-99.0); MEAN PLATELET VOLUME 10.1 fL (7.9-10.8); MONOCYTES # (AUTO) 0.9 10^3/uL (0.0-1.0); MONOCYTES % (AUTO) 11.9 %; NEUTROPHILS % (AUTO) 66.4 %; PLT - PLATELET COUNT 67 10^3/uL (130-450); RED BLOOD COUNT 1.95 10^6/uL (4.20-5.40); RED CELL DISTRIBUTION WIDTH 18.6 % (12.0-15.0); WHITE BLOOD COUNT 7.5 x10^3/uL (4.8-10.8)
[2022-07-08 04:44] LABS: HGB - HEMOGLOBIN 6.8 g/dL (12.0-16.0)
[2022-07-08 04:59] LABS: BUN - BLOOD UREA NITROGEN < 5 mg/dL (6-20); CARBON DIOXIDE - CO2 23 mmol/L (21-32); CHLORIDE 104 mmol/L (101-111); CREATININE 0.3 mg/dL (0.4-1.0); GFR - MDRD 246 (>89); GLUCOSE 117 mg/dL (70-100); POTASSIUM 3.1 mmol/L (3.5-5.0); SODIUM 136 mmol/L (135-145)
[2022-07-08 05:11] LABS: PROTEIN BODY FLUID 1.2 g/dL (.)
[2022-07-08] MEDS: NICOTINE 7 MG PATCH TOP SCH (08:11)
[2022-07-08] MEDS: FOLIC ACID 1 MG TABLET PO SCH (08:11)
[2022-07-08] MEDS: PRENATAL VITAMIN TABLET PO SCH (08:11)
[2022-07-08] MEDS: oxyCODONE 5 MG TABLET PO PRN ×3 (08:12→21:08)
[2022-07-08] MEDS: BENZOCAINE/MENTHOL LOZENGE MM PRN (08:12)
[2022-07-08] MEDS: SODIUM CHLORIDE FLUSH 0.9% 10 ML SYRINGE IVP SCH ×3 (08:14→21:26)
--- NOTE | 2022-07-08 08:57 | PROVIDER PROGRESS NOTE ---
Subjective - Prog Note Date Prog Note Date: 07/08/22 Prog Note Time: 08:54 - Subjective Pt reports feeling: Improved Subjective: 41 yo female with PMH of chronic alcohol abuse, liver cirrhosis with ascites, alcohol withdrawl, and HTN. I encounter Azul today lying in bed. I enformed her of the results of her CT today, we suspect pneumonia and are starting antibiotics. I asked if we could talk about her future and told her that if someone called me to tell me she had in the next year that I would not be surprised. Azul shakes her head in understanding and then reports she plans on quitting drinking. I asked her what makes her want to quit and she holds her abdomen stating "this." She plans on making no life changes and says she will be living with friends and family who currently drink. I asked her what the hospital can do to support her and she says nothing, she has all the information from a time when she was in a program for 2 years. She cites several instances when she has quit drinking in the past but refuses to commit to any lifestyle change. Current Medications - Current Medications Current Medications: Acetaminophen (Acetaminophen 325 Mg Tablet) 650 mg PO Q4HR PRN PRN Reason: Pain 1 to 4, or Fever Last Admin: 07/08/22 04:11 Dose: 650 mg Folic Acid (Folic Acid 1 Mg Tablet) 1 mg PO DAILY [facility] Last Admin: 07/08/22 08:11 Dose: 1 mg Nicotine (Nicotine 7 Mg Patch) 1 patch TOP DAILY [facility] Last Admin: 07/08/22 08:11 Dose: 1 patch Ondansetron HCl (Ondansetron Odt 4 Mg Tablet) 4 mg TL Q6HR PRN PRN Reason: Nausea / Vomiting Ondansetron HCl (Ondansetron 4 Mg/2 Ml Vial) 4 mg IVP Q6HR PRN PRN Reason: Nausea / Vomiting Oxycodone HCl (Oxycodone 5 Mg Tablet) 5 mg PO Q4HR PRN PRN Reason: Pain 5 to 7 Last Admin: 07/08/22 08:12 Dose: 5 mg Multivit/Folic Acid/Iron ( Vitamin Tablet) 1 tab PO DAILYWM [facility] Last Admin: 07/08/22 08:11 Dose: 1 tab Sodium Chloride (Sodium Chloride Flush 0.9% 10 Ml Syringe) 10 ml IVP PRN PRN PRN Reason: NEEDED PER PROVIDER ORDERS Sodium Chloride (Sodium Chloride Flush 0.9% 10 Ml Syringe) 10 ml IVP 0100,0900,1700 [facility] Last Admin: 07/08/22 08:14 Dose: 10 ml Throat Lozenges (Benzocaine/Menthol Lozenge) 1 lozenge MM Q2HR PRN PRN Reason: Throat pain Last Admin: 07/08/22 08:12 Dose: 1 lozenge Objective - Vital Signs/Intake & Output Vital Signs: Vital Signs x48h Temp Pulse Resp BP Pulse Ox 07/08/22 04:04 36.7 C 108 H 18 97/80 95 07/08/22 02:20 37.1 C 115 H 18 95 Intake & Output: Intake & Output 07/05/22 07/06/22 07/07/22 07/08/22 23:59 23:59 23:59 23:59 Intake Total 551 Output Total 125 200 Balance 426 -200 - Objective General Appearance: positive: No acute distress (A frail, woman lying in bed, with a protruberent abdomen that appears much larger than my exam yesterday.) Eyes Bilateral: positive: Normal inspection, Other (bilteral scleral icterus) ENT: positive: ENT inspection nml Neck: positive: Nml inspection Respiratory: positive: Chest non-tender, Breath sounds nml (quite throughout) Cardiovascular: positive: Tachycardia Peripheral Pulses: 1+ Posterior tibialis (R), 1+ Posterior tibialis (L), 2+ Radial (R), 2+ Radial (L) Abdomen: positive: Guarding, Hepatomegaly, Other (large protuberant abdomen) Back: positive: Nml inspection Skin: positive: Other (jaundiced) Extremities: positive: Non-tender, Other (bilateral lower extermity swelling) Neurologic/Psychiatric: positive: Oriented x3 - Lab Results Fish Bones: 07/08/22 07:12 07/08/22 04:20 Other Labs: Lab Results x24hrs 07/08/22 07/08/22 07/08/22 Range/Units 08:20 07:12 04:20 WBC (4.8-10.8) x10^3/uL RBC (4.20-5.40) 10^6/uL Hgb 6.7 L* (12.0-16.0) g/dL Hct (37.0-47.0) % MCV (81.0-99.0) fL MCH (27.0-31.0) pg MCHC (32.0-36.0) g/dL RDW (12.0-15.0) % Plt Count (130-450) 10^3/uL MPV (7.9-10.8) fL Neut # (Auto) (1.5-6.6) 10^3/uL Lymph # (Auto) (1.5-3.5) 10^3/uL [place] # (Auto) (0.0-1.0) 10^3/uL Eos # (Auto) (0.0-0.7) 10^3/uL Baso # (Auto) (0.0-0.1) 10^3/uL Absolute Nucleated RBC x10^3/uL Nucleated RBC % /100WBC PT (9.9-12.6) secs INR (0.8-1.2) Sodium 136 (135-145) mmol/L Potassium 3.1 L (3.5-5.0) mmol/L Chloride 104 (101-111) mmol/L Carbon Dioxide 23 (21-32) mmol/L Anion Gap 9.0 (6-13) BUN < 5 L (6-20) mg/dL Creatinine 0.3 L (0.4-1.0) mg/dL Estimated GFR (MDRD) 246 (>89) Glucose 117 H (70-100) mg/dL Lactic Acid (0.5-2.2) mmol/L Calcium 8.0 L (8.5-10.3) mg/dL Total Bilirubin (0.2-1.0) mg/dL AST (10-42) IU/L ALT (10-60) IU/L Alkaline Phosphatase (42-121) IU/L Ammonia (7-35) umol/L Total Protein (6.7-8.2) g/dL Albumin (3.2-5.5) g/dL Globulin (2.1-4.2) g/dL Albumin/Globulin Ratio (1.0-2.2) Lipase (22-51) U/L Urine Color Urine Clarity (CLEAR) Urine pH (5.0-7.5) PH Ur Specific [place] (1.002-1.030) Urine Protein (NEGATIVE) mg/dL Urine Glucose (UA) (NEGATIVE) mg/dL Urine Ketones (NEGATIVE) mg/dL Urine Occult Blood (NEGATIVE) Urine Nitrite (NEGATIVE) Urine Bilirubin (NEGATIVE) Urine Urobilinogen (NORMAL) E.U./dL Ur Leukocyte Esterase (NEGATIVE) Urine RBC (0-5) /HPF Urine WBC (0-5) /HPF Ur Squamous Epith Cells (<= Few) Urine Bacteria (None Seen) /HPF Ur Microscopic Review Urine Culture Comments Urine HCG, Qual Fluid Source Fluid Color Fluid Clarity Fluid WBC /mm^3 Fluid RBC /mm^3 Fluid Neutrophils % % Fluid Lymphocytes % % Fluid Macrophages % % Fld Mesothelial Cell % % Fluid Glucose (.) mg/dL Fluid Total Protein (.) g/dL Fluid LDH (.) IU/L Nasal Adenovirus (PCR) Nasal B. parapertussis DNA (PCR) Nasal Coronavir 229E PCR Nasal Coronavir HKU1 PCR Nasal Coronavir NL63 PCR Nasal Coronavir OC43 PCR Nasal Enterovir/Rhinovir PCR Nasal Influenza B PCR Nasal Influenza A PCR Nasal Parainfluen 1 PCR Nasal Parainfluen 2 PCR Nasal Parainfluen 3 PCR Nasal Parainfluen 4 PCR Nasal RSV (PCR) Nasal B.pertussis DNA PCR Nasal C.pneumoniae (PCR) [place] Human Metapneumo PCR Nasal M.pneumoniae (PCR) Nasal SARS-CoV-2 (PCR) Ethyl Alcohol mg/dL Blood Type A POSITIVE Crossmatch IS Only See Detail 07/08/22 07/07/22 07/07/22 Range/Units 04:20 18:50 13:42 WBC 7.5 (4.8-10.8) x10^3/uL RBC 1.95 L (4.20-5.40) 10^6/uL Hgb 6.8 L* (12.0-16.0) g/dL Hct 20.9 L (37.0-47.0) % MCV 107.2 H (81.0-99.0) fL MCH 34.9 H (27.0-31.0) pg MCHC 32.5 (32.0-36.0) g/dL RDW 18.6 H (12.0-15.0) % Plt Count 67 L (130-450) 10^3/uL MPV 10.1 (7.9-10.8) fL Neut # (Auto) 5.0 (1.5-6.6) 10^3/uL Lymph # (Auto) 1.6 (1.5-3.5) 10^3/uL [place] # (Auto) 0.9 (0.0-1.0) 10^3/uL Eos # (Auto) 0.1 (0.0-0.7) 10^3/uL Baso # (Auto) 0.0 (0.0-0.1) 10^3/uL Absolute Nucleated RBC 0.00 x10^3/uL Nucleated RBC % 0.0 /100WBC PT (9.9-12.6) secs INR (0.8-1.2) Sodium (135-145) mmol/L Potassium (3.5-5.0) mmol/L Chloride (101-111) mmol/L Carbon Dioxide (21-32) mmol/L Anion Gap (6-13) BUN (6-20) mg/dL Creatinine (0.4-1.0) mg/dL Estimated GFR (MDRD) (>89) Glucose (70-100) mg/dL Lactic Acid (0.5-2.2) mmol/L Calcium (8.5-10.3) mg/dL Total Bilirubin (0.2-1.0) mg/dL AST (10-42) IU/L ALT (10-60) IU/L Alkaline Phosphatase (42-121) IU/L Ammonia (7-35) umol/L Total Protein (6.7-8.2) g/dL Albumin (3.2-5.5) g/dL Globulin (2.1-4.2) g/dL Albumin/Globulin Ratio (1.0-2.2) Lipase (22-51) U/L Urine Color BROWN Urine Clarity SL. CLOUDY (CLEAR) Urine pH (5.0-7.5) PH Ur Specific [place] (1.002-1.030) Urine Protein (NEGATIVE) mg/dL Urine Glucose (UA) (NEGATIVE) mg/dL Urine Ketones (NEGATIVE) mg/dL Urine Occult Blood SMALL (NEGATIVE) Urine Nitrite (NEGATIVE) Urine Bilirubin COLOR INTERFERENCE (NEGATIVE) Urine Urobilinogen (NORMAL) E.U./dL Ur Leukocyte Esterase NEGATIVE (NEGATIVE) Urine RBC 6-10 H (0-5) /HPF Urine WBC 0-3 (0-5) /HPF Ur Squamous Epith Cells MANY Squamous H (<= Few) Urine Bacteria Few (None Seen) /HPF Ur Microscopic Review INDICATED Urine Culture Comments NOT INDICATED Urine HCG, Qual NEGATIVE Fluid Source PERITONEAL Fluid Color YELLOW Fluid Clarity CLEAR Fluid WBC 117 /mm^3 Fluid RBC 3000 /mm^3 Fluid Neutrophils % 26 % Fluid Lymphocytes % 25 % Fluid Macrophages % 40 % Fld Mesothelial Cell % 9 % Fluid Glucose (.) mg/dL Fluid Total Protein (.) g/dL Fluid LDH (.) IU/L Nasal Adenovirus (PCR) Nasal B. parapertussis DNA (PCR) Nasal Coronavir 229E PCR Nasal Coronavir HKU1 PCR Nasal Coronavir NL63 PCR Nasal Coronavir OC43 PCR Nasal Enterovir/Rhinovir PCR Nasal Influenza B PCR Nasal Influenza A PCR Nasal Parainfluen 1 PCR Nasal Parainfluen 2 PCR Nasal Parainfluen 3 PCR Nasal Parainfluen 4 PCR Nasal RSV (PCR) Nasal B.pertussis DNA PCR Nasal C.pneumoniae (PCR) [place] Human Metapneumo PCR Nasal M.pneumoniae (PCR) Nasal SARS-CoV-2 (PCR) Ethyl Alcohol mg/dL Blood Type Crossmatch IS Only 07/07/22 07/07/22 07/07/22 Range/Units 13:42 10:41 09:51 WBC (4.8-10.8) x10^3/uL RBC (4.20-5.40) 10^6/uL Hgb (12.0-16.0) g/dL Hct (37.0-47.0) % MCV (81.0-99.0) fL MCH (27.0-31.0) pg MCHC (32.0-36.0) g/dL RDW (12.0-15.0) % Plt Count (130-450) 10^3/uL MPV (7.9-10.8) fL Neut # (Auto) (1.5-6.6) 10^3/uL Lymph # (Auto) (1.5-3.5) 10^3/uL [place] # (Auto) (0.0-1.0) 10^3/uL Eos # (Auto) (0.0-0.7) 10^3/uL Baso # (Auto) (0.0-0.1) 10^3/uL Absolute Nucleated RBC x10^3/uL Nucleated RBC % /100WBC PT (9.9-12.6) secs INR (0.8-1.2) Sodium (135-145) mmol/L Potassium (3.5-5.0) mmol/L Chloride (101-111) mmol/L Carbon Dioxide (21-32) mmol/L Anion Gap (6-13) BUN (6-20) mg/dL Creatinine (0.4-1.0) mg/dL Estimated GFR (MDRD) (>89) Glucose (70-100) mg/dL Lactic Acid (0.5-2.2) mmol/L Calcium (8.5-10.3) mg/dL Total Bilirubin (0.2-1.0) mg/dL AST (10-42) IU/L ALT (10-60) IU/L Alkaline Phosphatase (42-121) IU/L Ammonia 41.3 H (7-35) umol/L Total Protein (6.7-8.2) g/dL Albumin (3.2-5.5) g/dL Globulin (2.1-4.2) g/dL Albumin/Globulin Ratio (1.0-2.2) Lipase (22-51) U/L Urine Color Urine Clarity (CLEAR) Urine pH (5.0-7.5) PH Ur Specific [place] (1.002-1.030) Urine Protein (NEGATIVE) mg/dL Urine Glucose (UA) (NEGATIVE) mg/dL Urine Ketones (NEGATIVE) mg/dL Urine Occult Blood (NEGATIVE) Urine Nitrite (NEGATIVE) Urine Bilirubin (NEGATIVE) Urine Urobilinogen (NORMAL) E.U./dL Ur Leukocyte Esterase (NEGATIVE) Urine RBC (0-5) /HPF Urine WBC (0-5) /HPF Ur Squamous Epith Cells (<= Few) Urine Bacteria (None Seen) /HPF Ur Microscopic Review Urine Culture Comments Urine HCG, Qual Fluid Source Fluid Color Fluid Clarity Fluid WBC /mm^3 Fluid RBC /mm^3 Fluid Neutrophils % % Fluid Lymphocytes % % Fluid Macrophages % % Fld Mesothelial Cell % % Fluid Glucose 110 (.) mg/dL Fluid Total Protein 1.2 (.) g/dL Fluid LDH 47 (.) IU/L Nasal Adenovirus (PCR) NOT DETECTED Nasal B. parapertussis DNA (PCR) NOT DETECTED Nasal Coronavir 229E PCR NOT DETECTED Nasal Coronavir HKU1 PCR NOT DETECTED Nasal Coronavir NL63 PCR NOT DETECTED Nasal Coronavir OC43 PCR NOT DETECTED Nasal Enterovir/Rhinovir PCR NOT DETECTED Nasal Influenza B PCR NOT DETECTED Nasal Influenza A PCR NOT DETECTED Nasal Parainfluen 1 PCR NOT DETECTED Nasal Parainfluen 2 PCR NOT DETECTED Nasal Parainfluen 3 PCR NOT DETECTED Nasal Parainfluen 4 PCR NOT DETECTED Nasal RSV (PCR) NOT DETECTED Nasal B.pertussis DNA PCR NOT DETECTED Nasal C.pneumoniae (PCR) NOT DETECTED [place] Human Metapneumo PCR NOT DETECTED Nasal M.pneumoniae (PCR) NOT DETECTED Nasal SARS-CoV-2 (PCR) NOT DETECTED Ethyl Alcohol mg/dL Blood Type Crossmatch IS Only 07/07/22 07/07/22 07/07/22 Range/Units 09:51 09:51 09:51 WBC (4.8-10.8) x10^3/uL RBC (4.20-5.40) 10^6/uL Hgb (12.0-16.0) g/dL Hct (37.0-47.0) % MCV (81.0-99.0) fL MCH (27.0-31.0) pg MCHC (32.0-36.0) g/dL RDW (12.0-15.0) % Plt Count (130-450) 10^3/uL MPV (7.9-10.8) fL Neut # (Auto) (1.5-6.6) 10^3/uL Lymph # (Auto) (1.5-3.5) 10^3/uL [place] # (Auto) (0.0-1.0) 10^3/uL Eos # (Auto) (0.0-0.7) 10^3/uL Baso # (Auto) (0.0-0.1) 10^3/uL Absolute Nucleated RBC x10^3/uL Nucleated RBC % /100WBC PT 17.4 H (9.9-12.6) secs INR 1.6 H (0.8-1.2) Sodium 132 L (135-145) mmol/L Potassium 3.1 L (3.5-5.0) mmol/L Chloride 98 L (101-111) mmol/L Carbon Dioxide 21 (21-32) mmol/L Anion Gap 13.0 (6-13) BUN < 5 L (6-20) mg/dL Creatinine 0.3 L (0.4-1.0) mg/dL Estimated GFR (MDRD) 246 (>89) Glucose 114 H (70-100) mg/dL Lactic Acid 1.2 (0.5-2.2) mmol/L Calcium 8.0 L (8.5-10.3) mg/dL Total Bilirubin 6.1 H (0.2-1.0) mg/dL AST 124 H (10-42) IU/L ALT 18 (10-60) IU/L Alkaline Phosphatase 197 H (42-121) IU/L Ammonia (7-35) umol/L Total Protein 6.9 (6.7-8.2) g/dL Albumin 1.8 L (3.2-5.5) g/dL Globulin 5.1 H (2.1-4.2) g/dL Albumin/Globulin Ratio 0.4 L (1.0-2.2) Lipase 44 (22-51) U/L Urine Color Urine Clarity (CLEAR) Urine pH (5.0-7.5) PH Ur Specific [place] (1.002-1.030) Urine Protein (NEGATIVE) mg/dL Urine Glucose (UA) (NEGATIVE) mg/dL Urine Ketones (NEGATIVE) mg/dL Urine Occult Blood (NEGATIVE) Urine Nitrite (NEGATIVE) Urine Bilirubin (NEGATIVE) Urine Urobilinogen (NORMAL) E.U./dL Ur Leukocyte Esterase (NEGATIVE) Urine RBC (0-5) /HPF Urine WBC (0-5) /HPF Ur Squamous Epith Cells (<= Few) Urine Bacteria (None Seen) /HPF Ur Microscopic Review Urine Culture Comments Urine HCG, Qual Fluid Source Fluid Color Fluid Clarity Fluid WBC /mm^3 Fluid RBC /mm^3 Fluid Neutrophils % % Fluid Lymphocytes % % Fluid Macrophages % % Fld Mesothelial Cell % % Fluid Glucose (.) mg/dL Fluid Total Protein (.) g/dL Fluid LDH (.) IU/L Nasal Adenovirus (PCR) Nasal B. parapertussis DNA (PCR) Nasal Coronavir 229E PCR Nasal Coronavir HKU1 PCR Nasal Coronavir NL63 PCR Nasal Coronavir OC43 PCR Nasal Enterovir/Rhinovir PCR Nasal Influenza B PCR Nasal Influenza A PCR Nasal Parainfluen 1 PCR Nasal Parainfluen 2 PCR Nasal Parainfluen 3 PCR Nasal Parainfluen 4 PCR Nasal RSV (PCR) Nasal B.pertussis DNA PCR Nasal C.pneumoniae (PCR) [place] Human Metapneumo PCR Nasal M.pneumoniae (PCR) Nasal SARS-CoV-2 (PCR) Ethyl Alcohol < 5.0 mg/dL Blood Type Crossmatch IS Only 07/07/22 Range/Units 09:51 WBC 8.7 (4.8-10.8) x10^3/uL RBC 2.16 L (4.20-5.40) 10^6/uL Hgb 7.3 L (12.0-16.0) g/dL Hct 22.7 L (37.0-47.0) % MCV 105.1 H (81.0-99.0) fL MCH 33.8 H (27.0-31.0) pg MCHC 32.2 (32.0-36.0) g/dL RDW 17.7 H (12.0-15.0) % Plt Count 78 L (130-450) 10^3/uL MPV 10.6 (7.9-10.8) fL Neut # (Auto) 6.5 (1.5-6.6) 10^3/uL Lymph # (Auto) 1.1 L (1.5-3.5) 10^3/uL [place] # (Auto) 1.0 (0.0-1.0) 10^3/uL Eos # (Auto) 0.1 (0.0-0.7) 10^3/uL Baso # (Auto) 0.0 (0.0-0.1) 10^3/uL Absolute Nucleated RBC 0.00 x10^3/uL Nucleated RBC % 0.0 /100WBC PT (9.9-12.6) secs INR (0.8-1.2) Sodium (135-145) mmol/L Potassium (3.5-5.0) mmol/L Chloride (101-111) mmol/L Carbon Dioxide (21-32) mmol/L Anion Gap (6-13) BUN (6-20) mg/dL Creatinine (0.4-1.0) mg/dL Estimated GFR (MDRD) (>89) Glucose (70-100) mg/dL Lactic Acid (0.5-2.2) mmol/L Calcium (8.5-10.3) mg/dL Total Bilirubin (0.2-1.0) mg/dL AST (10-42) IU/L ALT (10-60) IU/L Alkaline Phosphatase (42-121) IU/L Ammonia (7-35) umol/L Total Protein (6.7-8.2) g/dL Albumin (3.2-5.5) g/dL Globulin (2.1-4.2) g/dL Albumin/Globulin Ratio (1.0-2.2) Lipase (22-51) U/L Urine Color Urine Clarity (CLEAR) Urine pH (5.0-7.5) PH Ur Specific [place] (1.002-1.030) Urine Protein (NEGATIVE) mg/dL Urine Glucose (UA) (NEGATIVE) mg/dL Urine Ketones (NEGATIVE) mg/dL Urine Occult Blood (NEGATIVE) Urine Nitrite (NEGATIVE) Urine Bilirubin (NEGATIVE) Urine Urobilinogen (NORMAL) E.U./dL Ur Leukocyte Esterase (NEGATIVE) Urine RBC (0-5) /HPF Urine WBC (0-5) /HPF Ur Squamous Epith Cells (<= Few) Urine Bacteria (None Seen) /HPF Ur Microscopic Review Urine Culture Comments Urine HCG, Qual Fluid Source Fluid Color Fluid Clarity Fluid WBC /mm^3 Fluid RBC /mm^3 Fluid Neutrophils % % Fluid Lymphocytes % % Fluid Macrophages % % Fld Mesothelial Cell % % Fluid Glucose (.) mg/dL Fluid Total Protein (.) g/dL Fluid LDH (.) IU/L Nasal Adenovirus (PCR) Nasal B. parapertussis DNA (PCR) Nasal Coronavir 229E PCR Nasal Coronavir HKU1 PCR Nasal Coronavir NL63 PCR Nasal Coronavir OC43 PCR Nasal Enterovir/Rhinovir PCR Nasal Influenza B PCR Nasal Influenza A PCR Nasal Parainfluen 1 PCR Nasal Parainfluen 2 PCR Nasal Parainfluen 3 PCR Nasal Parainfluen 4 PCR Nasal RSV (PCR) Nasal B.pertussis DNA PCR Nasal C.pneumoniae (PCR) [place] Human Metapneumo PCR Nasal M.pneumoniae (PCR) Nasal SARS-CoV-2 (PCR) Ethyl Alcohol mg/dL Blood Type Crossmatch IS Only - Diagnostic Imaging Diagnostic Imaging Results: positive: Final report reviewed Diagnostic Imaging Comments: CTA 07/08/22 Impression: mild patchy left airspace opacity. Suspect pneumonia trace L pleural effusion enlarged mediastinal lymph nodes small volume of ascites. splenomegaly. Assessment/Plan - Problem List (1) Alcoholic cirrhosis of liver with ascites Impression: AST/ALT greater than 2:1 ratio, personal history of alcoholic abuse, ascites and anasarca noted on exam, on interview she is not encephalopathic her thinking is clear and logical. MELD score is 22 points 19.6% estimated 3 mon mortality. Plan: paracentesis completed, consider albumin if SBP drops, continue home spironolactone, limit po intake to 1000mL (2) Community acquired pneumonia Impression: Abnormal CXR from yesterday followed up today with CT. CT today, impression above, suggests pneumonia. Plan: empiric antibiotics started today. Qualifiers: Laterality: left Lung location: upper lobe of lung Qualified Code(s): J18.9 - Pneumonia, unspecified organism (3) Hypokalemia Impression: K 3.1 this admission. Plan: Oral replacement potassium (4) Alcohol abuse Impression: Drinks 2 high gravity tall boys beer each day. She does not plan on stopping, she understands that this drinking will kill her. Plan: Begin advanced care planning. During our conversation today she states she wants to live as long as possible but makes no plans for changing her alcohol use once she leaves the hospital. (5) Anemia Impression: H&H 6.8/20.9 this am Plan: transfuse 1 unit PRBC Qualifiers: Anemia type: unspecified type Qualified Code(s): D64.9 - Anemia, u nspecified (6) Alcohol withdrawal Impression: ETOH not found on tox screen on admit. Pt drinks daily and reports a history of a seizure because of alcohol withdrawal. Plan: watch for signs of withdrawal, CIWA screen, consider starting benzos early or giving alcohol to keep from going into withdrawal, give thiamine and banana bag (7) Smoking Impression: smoked 1ppd from age [age]. Smokes age [age] 1/2 ppd. Plan: 7mg nicotine patch
--- NOTE | 2022-07-08 10:12 | CT Report ---
PROCEDURE: CHEST W INDICATIONS: reticulonodular on CXR. CONTRAST:100mL Omni 300 TECHNIQUE: After the administration of intravenous contrast, 1 mm axial images were acquired from the pulmonary apices through the posterior costophrenic angles. Axial 5 mm soft tissue kernel reconstructions were performed as well as 8 mm axial MIP and coronal and sagittal 5 mm reformations. For radiation dose reduction, the following was used: automated exposure control, adjustment of mA and/or kV according to patient size. COMPARISON: CXR 07/07/2022, 11/03/2021. CT abdomen pelvis 05/12/2022. FINDINGS: Image quality: Excellent. Lungs and pleura: Mild airspace opacity in the left upper lobe and left lung base. Trace left pleural effusion. No pneumothorax. Central airways are clear. Bronchial wall thickening. Mediastinum: Heart size is normal. No pericardial effusion. Right lower paratracheal node measuring 1.1 cm, (3/19). Subcarinal node measuring 1.3 cm, (3/25). Thoracic aorta and central pulmonary arter ies are normal in size. Esophagus is normal in caliber. No hiatal hernia. Bones and chest wall: No suspicious bony lesions. Prior left-sided rib fractures. No vertebral body compression fractures. No axillary or supraclavicular adenopathy by size criteria. Right thyroid gl and is prominent. Abdomen: Small volume of ascites. Splenomegaly. IMPRESSION: 1. Mild patchy left airspace opacity. Suspect pneumonia. 2. Trace left pleural effusion. 3. Enlarged mediastinal lymph nodes. 4. Small volume of ascites. Splenomegaly. Reviewed by: Nicholas Hutson MD on 07/08/2022 10:11 AM [facility] Approved by: Nicholas Hutson MD on 07/08/2022 10:11 AM [facility] Station ID: [id number]
[2022-07-08] MEDS ORDERED: POTASSIUM CHLORIDE 20 MEQ TABLET PO ONE (12:43)
[2022-07-08] MEDS: cefTRIAXone 1 GM in SODIUM CHLORIDE 0.9% MINIBAG 100 ML IV SCH (13:58)
[2022-07-08] MEDS: AZITHROMYCIN INJ 500 MG in SODIUM CHLORIDE 0.9% 250 ML IV SCH (14:52)
[2022-07-08] MEDS: SACCHAROMYCES BOULARDII 250 MG CAPSULE PO SCH (16:31)
[2022-07-09] MEDS: BENZOCAINE/MENTHOL LOZENGE MM PRN (05:22)
[2022-07-09 05:26] LABS: BASOPHILS % (AUTO) 0.3 %; EOSINOPHILS # (AUTO) 0.1 10^3/uL (0.0-0.7); EOSINOPHILS % (AUTO) 0.9 %; HCT - HEMATOCRIT 25.2 % (37.0-47.0); HGB - HEMOGLOBIN 8.3 g/dL (12.0-16.0); LYMPHOCYTES # (AUTO) 1.5 10^3/uL (1.5-3.5); LYMPHOCYTES % (AUTO) 20.1 %; MEAN CORPUSCULAR HEMOGLOBIN 33.3 pg (27.0-31.0); MEAN CORPUSCULAR HGB CONC 32.9 g/dL (32.0-36.0); MEAN CORPUSCULAR VOLUME 101.2 fL (81.0-99.0); MEAN PLATELET VOLUME 10.4 fL (7.9-10.8); MONOCYTES # (AUTO) 0.9 10^3/uL (0.0-1.0); MONOCYTES % (AUTO) 12.3 %; PLT - PLATELET COUNT 72 10^3/uL (130-450); RED BLOOD COUNT 2.49 10^6/uL (4.20-5.40); RED CELL DISTRIBUTION WIDTH 21.6 % (12.0-15.0); WHITE BLOOD COUNT 7.6 x10^3/uL (4.8-10.8)
[2022-07-09 05:39] LABS: SLIDE REVIEW? Indicated
[2022-07-09 05:41] LABS: BUN - BLOOD UREA NITROGEN < 5 mg/dL (6-20); CALCIUM 7.8 mg/dL (8.5-10.3); CARBON DIOXIDE - CO2 25 mmol/L (21-32); CHLORIDE 100 mmol/L (101-111); CREATININE 0.3 mg/dL (0.4-1.0); GFR - MDRD 246 (>89); GLUCOSE 103 mg/dL (70-100); POTASSIUM 3.6 mmol/L (3.5-5.0); SODIUM 132 mmol/L (135-145)
[2022-07-09 06:34] LABS: PLATELET ESTIMATE, MANUAL DECREASED (<130,000) (NORMAL)
[2022-07-09] MEDS ORDERED: polyethylene glycoL 3350 17 GM PACKET PO SCH (09:00)
[2022-07-09] MEDS: NICOTINE 7 MG PATCH TOP SCH (09:36)
[2022-07-09] MEDS: SACCHAROMYCES BOULARDII 250 MG CAPSULE PO SCH (09:37)
[2022-07-09] MEDS: FOLIC ACID 1 MG TABLET PO SCH (09:37)
[2022-07-09] MEDS: PRENATAL VITAMIN TABLET PO SCH (09:37)
[2022-07-09] MEDS: oxyCODONE 5 MG TABLET PO PRN (09:37)
[2022-07-09] MEDS: cefTRIAXone 1 GM in SODIUM CHLORIDE 0.9% MINIBAG 100 ML IV SCH (09:44)
[2022-07-09] MEDS: SODIUM CHLORIDE FLUSH 0.9% 10 ML SYRINGE IVP SCH (09:45)
[2022-07-09] MEDS: AZITHROMYCIN INJ 500 MG in SODIUM CHLORIDE 0.9% 250 ML IV SCH (10:33)
--- NOTE | 2022-07-09 10:54 | Discharge Plan ---
Discharge Plan Problem Reviewed?: Yes Disposition: Home, Self Care Condition: Fair Prescriptions: Folic Acid 1 mg PO DAILY #30 tab Diet: Low Sodium Activity Restrictions: Activity as Tolerated Shower Restrictions: No Driving Restrictions: No Health Concerns: You have a long history of alcoholic liver disease and you have probable end- stage liver disease with water in your belly called ascites. We call with cirrhosis with ascites. The water in your belly had gotten severe enough that you are having abdominal pain and you were scheduled to have a needle poked into your belly and have the water sucked out next week. But the pain had gotten so bad that you could not wait anymore and came to the emergency room. In the emergency room we found her to have the end-stage liver disease, the water in your belly that was very tense, and a low-grade pneumonia. We went ahead and tapped your belly and removed about 3-1/2 L. We started you on antibiotics for the pneumonia. You not feel stable enough to go back home. Plan of Treatment: Please finish your antibiotics for pneumonia. You have 1 more day of azit hromycin 500 mg to take. Please help your bone marrow to make more blood. Alcoholism and alcohol is very damaging to the bone marrow and nerve endings of your nervous system. So if you take folic acid and thiamine it helps lessen the toxicity. So take a vitamin, and folic acid every day. Please establish yourself with a primary care provider. Because you have end- stage liver disease, we have explained to that you have a limited life span. The chances you becoming ill and dying from your liver disease is close to 30% in the next 3 months. If you can establish yourself with a primary care provider and get regular routine care, AND STOP DRINKING, your liver can get better and you can have much, much, much improved health with a longer life. Because you have liver failure, you cannot take Tylenol for pain. You can take Motrin [id number] but the Motrin can only be once or twice a day. Due to liver disease, your blood is already thinner than normal. Motrin is another blood thinner. So that would mean you would have very thin blood if he took too much Motrin. You did ask for pain medicine, and I have given you some tramadol. It is a strong pain medicine that can be sedated. I have only given you 30 tablets. Care Goals: To be able to stop drinking successfully, and have your liver slowly get better so that your body can return to normal. Assessment: Patient is alert, oriented, not completely confident she will be able to stop drinking. But she says she will try. She has had many conversations with social work over previous admissions and previous ED visits. She says that she has all of her information and does not need to see social work again No Smoking: If you smoke, Please STOP! Call for help.
--- NOTE | 2022-07-09 11:17 | DISCHARGE SUMMARY ---
"Discharge Summary Admit Date: 07/07/22 Discharge Date: 07/09/22 Discharging Provider: Amina Bauman MD Primary Care Provider: No PCP yet Code Status: Attempt Resuscitation Condition at Discharge: Fair Discharge Disposition: 01 Home, Self Care - DIAGNOSES Discharge Diagnoses with Status of Each Condition: 1. Abdominal pain 2. Alcoholic cirrhosis of the liver with ascites 3. Community-acquired pneumonia 4. Hypokalemia 5. Alcohol abuse 7. Macrocytic anemia requiring transfusion 8. History of alcohol withdrawal 9. Tobacco abuse - HPI History of Present Illness: 41 yo female with PMH of chronic alcohol abuse, liver cirrhosis with ascites, alcohol withdrawl, and HTN. Presented to the ED with increasing ascites and difficulty breathing secondary to the size of the ascites. She was admitted in May for similar issues. I encounter Azul lying in bed. She is pleasant and interactive, aware that her drinking is killing her and not willing to stop. Her complaint now is her persistent wet cough that interrupts our interview. She denies fever, chills, night sweats, endorses SOB but relates this to her abdomen pushing up on her chest making it hard to breath, states this is better after paracentesis today. 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 She is not on control pills. She is possibly sexually active, unclear do to unreliable historian.) : reports: None HEENT: reports: None Psych: reports: None Musculoskeletal: reports: None Derm: reports: None MRSA Hx?: No - CONSULTS | PROCEDURES Procedures: Chest x-ray shows mild atypical pneumonia with diffuse reticular nodular pattern. CT recommended or follow-up chest x-ray recommended. CT of the chest was done and shows mild patchy left airspace opacity. Probable pneumonia. Trace left pleural effusion. Reactive enlarged mediastinal lymph nodes. Small volume ascites. Splenomegaly. Paracentesis of 3-1/2 L by description of the patient. Radiologist did not dictate how much. Ascitic fluid was peritoneal, yellow, 117 white cells. 3000 red cells. 26% neutrophils. 25% lymphs. Glucose was 110, total protein 1.2, LDH 47. At the time of discharge, anaerobic/aerobic culture of the ascitic fluid was pending. It is a send out lab. - HOSPITAL COURSE Hospital Course: The patient presented as a tense abdomen. She was scheduled to have a paracentesis and could not wait because of the pain. As such we scheduled her for paracentesis the next day. She did have cough, chest congestion indicating that there could be something to the left lower lobe pneumonia seen on CT of the chest and she was started on empiric antibiotic therapy. She was not felt to have spontaneous bacterial peritonitis. At the time of discharge the ascitic fluid culture is pending. It was a send out lab. It is a transudative fluid. She underwent 3-1/2 L paracentesis. The 3-1/2 L is an estimate since the radiologist did not dictate in his note how much was removed. The patient felt better even though the next day some of her distention returned. Cough and congestion also improved. She felt stable enough to return to home. We did explain to her that her MELD score is quite high and her mortality rate is close to 30% in the next 3 months on the basis of her labs. She says that she will try and stop drinking. She says that she is already spoken to social work many times and understands some of the opportunities she could avail herself of and did not feel like she needed to see social work again. She is willing to start the steps of helping herself get better and says that she will establish yourself with a primary care provider. She currently has Medicaid insurance that is not accepted by the local clinics. She is changing her Medicaid insurance through social work and case management to allow her to have the Medicaid that is excepted in her local clinics. She will then establish yourself with a primary care provider. I have started her on spironolactone 25 mg a day. Lactulose 15 mils a day. She will need to complete 1 more day of azithromycin in the outpatient setting with 1 single 500 mg dose. She is discharged in stable condition with a temperature of 37 degrees, heart rate 113, blood pressure 112/69. Respirations 20. 96% on room air. She is a 5 foot 2 inch female, pale, fatigued appearing. Slow psychomotor thought process but alert, oriented to person place and time.Abdomen is distended. Mild abdominal pain. Positive fluid wave. Positive of edema of extremities and face. Lungs are clear. She has regular rate and rhythm. Greater than 30 minutes was spent coordinating discharge, and going over her medical problems and the importance of getting follow-up. - ALLERGIES Allergies/Adverse Reactions: Allergies Allergy/AdvReac Type Severity Reaction Status Date / Time amoxicillin Allergy Unknown Unknown Verified 07/07/22 08:48 - MEDICATIONS Home Medications: Ambulatory Orders Medication Instructions Recorded Confirmed Ibuprofen 200 - 600 mg PO Q4H PRN 07/07/22 07/07/22 Azithromycin 500 mg PO ONCE #1 tablet 07/09/22 Folic Acid 1 mg PO DAILY #30 tab 07/09/22 Lactulose 15 ml PO DAILY #240 ml 07/09/22 Pnv No.95/Ferrous Fum/Folic AC 1 each PO DAILY #30 tablet 07/09/22 [ Caplet] Spironolactone [Aldactone] 25 mg PO DAILY #30 tablet 07/09/22 traMADol [Ultram] 50 mg PO Q4-6H #30 tablet 07/09/22 - LABS Result Diagrams: 07/09/22 05:02 07/09/22 05:02"
[2022-07-09 14:17] VITALS: BP 115/72
== END 2022-07-09 15:00 | disposition home or self-care (01) | DRG 432 ==
LOC: ED 08:22 → MS2 11:40
PROVIDERS: ADMIT Specialist; ATTEND Specialist
PROC: 0W9G3ZZ Drainage of Peritoneal Cavity, Percutaneous Approach (ICD-10-PCS; principal; 2022-07-07)
DX: K70.31 Alcoholic cirrhosis of liver with ascites (principal); J18.9 Pneumonia, unspecified organism; J90 Pleural effusion, not elsewhere classified; F10.10 Alcohol abuse, uncomplicated; K72.10 Chronic hepatic failure without coma; E87.6 Hypokalemia; D53.9 Nutritional anemia, unspecified; F17.210 Nicotine dependence, cigarettes, uncomplicated; I10 Essential (primary) hypertension; R00.0 Tachycardia, unspecified; Z20.822 Contact with and (suspected) exposure to COVID-19
CPT/HCPCS: 36415; 49083; 71045; 71046; 71260; 80048; 80053; 80320; 81001; 81025; 82140; 82945; 83605; 83615; 83690; 84157; 85018; 85025; 85610; 86850; 86900; 86901; 86920; 87633; 89051; 99285; 99406; A9270; J3411; J7040; P9016; Q9967; 81003; 87086

== ENCOUNTER 2022-07-28 13:14 | Outpatient (CLI) | payer MEDICAID ==
[2022-07-28] MEDS ORDERED: LIDOCAINE-MPF 1% 5 ML VIAL ONE (13:40)
[2022-07-28] MEDS ORDERED: LIDOCAINE-MPF 1% 5 ML VIAL SUBQ STA (15:09)
--- NOTE | 2022-08-01 08:42 | Ultrasound Report ---
PROCEDURE: Abdominal Paracentesis INDICATIONS: ABD ASCITES TECHNIQUE: The indications, alternatives, benefits, risks, and complications of the procedure were explained to the patient. Written informed consent was obtained and placed in the chart. The abdomen and pelvis were examined sonographically, and an appropriate site was chosen for paracentesis. The skin was pre pared and draped in the usual sterile fashion, and 1% lidocaine was infiltrated from the skin down th rough the peritoneal surface. A 19-gauge catheter-covered needle was then introduced into the perito teresa space, the catheter was advanced and the needle was withdrawn, and thereafter peritoneal fluid w as withdrawn. The catheter was then removed and a dressing was applied. The fluid was discarded if the clinician did not order diagnostic testing of the fluid. COMPARISON: None FINDINGS: Access site: Right lower quadrant Needle: One-Step centesis catheter with introducer needle. Fluid volume and description: Yellow, 2700 cc Fluid sent for diagnostic testing: None Medications: 1% lidocaine for local anaesthesia. Complications: None. IMPRESSION: Successful ultrasound-guided paracentesis. Reviewed by: Lea Land MD on 08/01/2022 8:41 AM PDT Approved by: Lea Land MD on 08/01/2022 8:41 AM PDT Station ID: [id number]
== END 2022-07-28 13:15 | disposition home or self-care (01) ==
LOC: DI 13:14
PROVIDERS: ATTEND Registered Nurse
DX: K70.31 Alcoholic cirrhosis of liver with ascites (principal)
CPT/HCPCS: 49083

== ENCOUNTER 2022-09-14 10:44 | Outpatient (CLI) | payer MEDICAID ==
[2022-09-14 17:47] LABS: BASOPHILS % (AUTO) 0.2 %; EOSINOPHILS # (AUTO) 0.1 10^3/uL (0.0-0.7); HCT - HEMATOCRIT 31.4 % (37.0-47.0); HGB - HEMOGLOBIN 10.7 g/dL (12.0-16.0); LYMPHOCYTES # (AUTO) 1.6 10^3/uL (1.5-3.5); LYMPHOCYTES % (AUTO) 32.9 %; MEAN CORPUSCULAR HEMOGLOBIN 32.2 pg (27.0-31.0); MEAN CORPUSCULAR HGB CONC 34.1 g/dL (32.0-36.0); MEAN CORPUSCULAR VOLUME 94.6 fL (81.0-99.0); MEAN PLATELET VOLUME 10.8 fL (7.9-10.8); MONOCYTES # (AUTO) 0.6 10^3/uL (0.0-1.0); MONOCYTES % (AUTO) 11.5 %; NEUTROPHILS # (AUTO) 2.6 10^3/uL (1.5-6.6); PLT - PLATELET COUNT 136 10^3/uL (130-450); RED BLOOD COUNT 3.32 10^6/uL (4.20-5.40); WHITE BLOOD COUNT 4.9 x10^3/uL (4.8-10.8)
[2022-09-14 18:00] LABS: INR 1.4 (0.8-1.2); PT - PROTHROMBIN TIME 15.2 secs (9.9-12.6)
[2022-09-14 18:06] LABS: ALBUMIN 3.4 g/dL (3.2-5.5); ALBUMIN/GLOBULIN RATIO 0.7 (1.0-2.2); BILIRUBIN,TOTAL 2.3 mg/dL (0.2-1.0); CALCIUM 9.7 mg/dL (8.5-10.3); CREATININE 0.4 mg/dL (0.4-1.0); POTASSIUM 3.7 mmol/L (3.5-5.0); TOTAL PROTEIN 8.4 g/dL (6.7-8.2)
[2022-09-14 18:10] LABS: HCG,QUALITATIVE BLOOD NEGATIVE
[2022-09-14 18:20] LABS: PARTIAL THROMBOPLASTIN TIME 32.9 secs (24.9-33.3)
[2022-09-15 08:10] LABS: AFP SERUM TUMOR MARKER 3.8 ng/mL (0.0-6.4)
[2022-09-15 10:09] LABS: HBsAG SCREEN Negative (Negative); HEPATITIS B SURFACE AB QUANT <3.1 mIU/mL (Immunity>9.9)
[2022-09-16 00:07] LABS: HCV AB Non Reactive (Non Reactive)
[2022-09-18 13:08] LABS: HCV IU/ML HCV Not Detected IU/mL (.)
== END 2022-09-14 10:45 | disposition home or self-care (01) ==
LOC: LAB.N 10:44
PROVIDERS: ATTEND Physician Assistant
DX: K70.31 Alcoholic cirrhosis of liver with ascites (principal); N91.2 Amenorrhea, unspecified
CPT/HCPCS: 36415; 80053; 81599; 82105; 82140; 83001; 84703; 85025; 85610; 85730; 86317; 86704; 86709; 86803; 87340; 87522

== ENCOUNTER 2023-03-08 21:34 | Outpatient (CLI) | payer MEDICAID | END 2023-03-08 23:59 | disposition critical access hospital (66) | LOC: EMS 21:34 | DX: R07.9 Chest pain, unspecified (principal); R10.9 Unspecified abdominal pain; R14.0 Abdominal distension (gaseous) | CPT/HCPCS: A0425; A0429; A0999 ==

== ENCOUNTER 2023-03-08 21:51 | Emergency (ER) | payer MEDICAID ==
[2023-03-08 22:30] LABS: BASOPHILS # (AUTO) 0.1 10^3/uL (0.0-0.1); BASOPHILS % (AUTO) 0.6 %; EOSINOPHILS # (AUTO) 0.1 10^3/uL (0.0-0.7); EOSINOPHILS % (AUTO) 0.8 %; HGB - HEMOGLOBIN 10.9 g/dL (12.0-16.0); LYMPHOCYTES # (AUTO) 2.7 10^3/uL (1.5-3.5); LYMPHOCYTES % (AUTO) 33.4 %; MEAN CORPUSCULAR VOLUME 90.9 fL (81.0-99.0); MEAN PLATELET VOLUME 9.8 fL (7.9-10.8); MONOCYTES # (AUTO) 1.1 10^3/uL (0.0-1.0); MONOCYTES % (AUTO) 13.9 %; NEUTROPHILS # (AUTO) 4.1 10^3/uL (1.5-6.6); NEUTROPHILS % (AUTO) 50.9 %; PLT - PLATELET COUNT 214 10^3/uL (130-450); RED BLOOD COUNT 3.63 10^6/uL (4.20-5.40); RED CELL DISTRIBUTION WIDTH 15.9 % (12.0-15.0)
[2023-03-08 22:47] LABS: ALBUMIN 3.8 g/dL (3.2-5.5); ALBUMIN/GLOBULIN RATIO 1.1 (1.0-2.2); CALCIUM 8.7 mg/dL (8.5-10.3); CREATININE 0.3 mg/dL (0.6-1.3); ETOH - ETHANOL 401.5 mg/dL; POTASSIUM 3.7 mmol/L (3.5-4.5); TOTAL PROTEIN 7.3 g/dL (6.4-8.9)
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
[2023-03-08 23:03] VITALS: BP 130/77; O2SAT 98
== END 2023-03-08 22:57 | disposition home or self-care (01) ==
LOC: EDUNIT# → ED 21:51
DX: K70.31 Alcoholic cirrhosis of liver with ascites (principal); F10.288 Alcohol dependence with other alcohol-induced disorder; Y90.8 Blood alcohol level of 240 mg/100 ml or more; I10 Essential (primary) hypertension; F17.200 Nicotine dependence, unspecified, uncomplicated
CPT/HCPCS: 36415; 80053; 80320; 83690; 85025; 99283

== ENCOUNTER 2023-03-28 15:08 | Outpatient (CLI) | payer MEDICAID | END 2023-03-28 15:09 | disposition critical access hospital (66) | LOC: EMS 15:08 | DX: R10.11 Right upper quadrant pain (principal); R14.0 Abdominal distension (gaseous); R06.02 Shortness of breath | CPT/HCPCS: A0425; A0429 ==

== ENCOUNTER 2023-03-28 15:27 | Emergency (ER) | payer MEDICAID ==
[2023-03-28 15:52] VITALS: BP 134/88; O2SAT 95
== END 2023-03-28 15:57 | disposition left against medical advice (07) ==
LOC: EDUNIT# → ED 15:27
DX: Z53.21 Procedure and treatment not carried out due to patient leaving prior to being seen by health care provider (principal)

== ENCOUNTER 2023-03-29 10:14 | Outpatient (CLI) | payer MEDICAID | END 2023-03-29 10:15 | disposition critical access hospital (66) | LOC: EMS 10:14 | DX: S61.218A Laceration without foreign body of other finger without damage to nail, initial encounter (principal); X58.XXXA Exposure to other specified factors, initial encounter; Y93.E5 Activity, floor mopping and cleaning; Y92.009 Unspecified place in unspecified non-institutional (private) residence as the place of occurrence of the external cause | CPT/HCPCS: A0425; A0429 ==

== ENCOUNTER 2023-03-29 10:28 | Emergency (ER) | payer MEDICAID ==
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
[2023-03-29 11:39] VITALS: BP 143/93; O2SAT 97
== END 2023-03-29 11:27 | disposition home or self-care (01) ==
LOC: EDUNIT# → ED 10:28
DX: S61.216A Laceration without foreign body of right little finger without damage to nail, initial encounter (principal); W45.8XXA Other foreign body or object entering through skin, initial encounter; Y92.009 Unspecified place in unspecified non-institutional (private) residence as the place of occurrence of the external cause; I10 Essential (primary) hypertension; F17.200 Nicotine dependence, unspecified, uncomplicated; Z79.899 Other long term (current) drug therapy
CPT/HCPCS: 99282

== ENCOUNTER 2023-04-12 14:01 | Emergency (ER) | payer MEDICAID ==
[2023-04-12 14:45] LABS: BASOPHILS % (AUTO) 0.5 %; EOSINOPHILS # (AUTO) 0.1 10^3/uL (0.0-0.7); EOSINOPHILS % (AUTO) 1.1 %; HCT - HEMATOCRIT 34.8 % (37.0-47.0); HGB - HEMOGLOBIN 11.3 g/dL (12.0-16.0); LYMPHOCYTES # (AUTO) 1.4 10^3/uL (1.5-3.5); LYMPHOCYTES % (AUTO) 24.6 %; MEAN CORPUSCULAR HEMOGLOBIN 28.5 pg (27.0-31.0); MEAN CORPUSCULAR HGB CONC 32.5 g/dL (32.0-36.0); MEAN CORPUSCULAR VOLUME 87.7 fL (81.0-99.0); MEAN PLATELET VOLUME 10.3 fL (7.9-10.8); MONOCYTES # (AUTO) 0.7 10^3/uL (0.0-1.0); MONOCYTES % (AUTO) 12.9 %; NEUTROPHILS # (AUTO) 3.4 10^3/uL (1.5-6.6); NEUTROPHILS % (AUTO) 60.5 %; PLT - PLATELET COUNT 77 10^3/uL (130-450); RED BLOOD COUNT 3.97 10^6/uL (4.20-5.40); RED CELL DISTRIBUTION WIDTH 18.8 % (12.0-15.0); WHITE BLOOD COUNT 5.6 x10^3/uL (4.8-10.8)
[2023-04-12 15:02] LABS: ALBUMIN 3.5 g/dL (3.2-5.5); ALBUMIN/GLOBULIN RATIO 0.9 (1.0-2.2); BILIRUBIN,TOTAL 1.5 mg/dL (0.2-1.0); CREATININE 0.4 mg/dL (0.6-1.3); POTASSIUM 3.9 mmol/L (3.5-4.5); TOTAL PROTEIN 7.3 g/dL (6.4-8.9)
[2023-04-12 15:17] LABS: INR 1.5 (0.8-1.2); PT - PROTHROMBIN TIME 15.9 secs (9.9-12.6)
--- NOTE | 2023-04-12 16:25 | ED Physician Documentation ---
PD HPI ABD PAIN - Stated complaint Stated Complaint: ABD BLOATING/SOA - Chief complaint Chief Complaint: Abd Pain - History obtained from History obtained from: Patient - Additional information Additional information: 42-year-old woman with alcoholic cirrhosis presents requesting paracentesis for symptomatic ascites causing shortness of breath. She has no abdominal pain per se. No fevers. Last had a paracentesis in July. Of late has been noncompliant with her diuretics and has relapsed on alcohol. 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 : None HEENT: None Psych: None Musculoskeletal: None Derm: None - Past Surgical History Past Surgical History: Yes General: Other - Present Medications Home Medications: Ambulatory Orders Medication Instructions Recorded Confirmed Ibuprofen 200 - 600 mg PO Q4H PRN 07/07/22 07/07/22 Folic Acid 1 mg PO DAILY #30 tab 07/09/22 Lactulose 15 ml PO DAILY #240 ml 07/09/22 03/29/23 Pnv No.95/Ferrous Fum/Folic AC 1 each PO DAILY #30 tablet 07/09/22 [ Caplet] Spironolactone [Aldactone] 25 mg PO DAILY #30 tablet 07/09/22 03/29/23 Furosemide [Lasix] 10 mg PO DAILY 03/29/23 03/29/23 - Allergies Allergies/Adverse Reactions: Allergies Allergy/AdvReac Type Severity Reaction Status Date / Time amoxicillin Allergy Unknown Unknown Verified 03/08/23 22:00 - Social History Does the pt smoke?: Yes Smoking Status: Current every day smoker Does the pt drink ETOH?: Yes Does the pt have substance abuse?: Yes - Immunizations Immunizations are current?: No Immunizations: TDAP current <10years - POLST Patient has POLST: No POLST Status: Full Code PD ED PE NORMAL - Vitals Vital signs reviewed: Yes - General General: Alert and oriented X 3, No acute distress - Abdomen Abdomen: Other (Tense ascites without tenderness. She has other stigmata of chronic liver disease including telangiectasias and prominent abdominal wall veins) - Extremities Extremities: No edema - Neuro Neuro: Alert and oriented X 3 Results - Vitals Vitals: Vital Signs - 24 hr 04/12/23 14:23 Temperature 36.7 C Heart Rate 118 H Respiratory 20 Rate Blood Pressure 155/105 H O2 Saturation 99 Oxygen O2 Source Room air - Labs Labs: Laboratory Tests 04/12/23 04/12/23 04/12/23 14:37 14:37 14:37 WBC 5.6 RBC 3.97 L Hgb 11.3 L Hct 34.8 L MCV 87.7 MCH 28.5 MCHC 32.5 RDW 18.8 H Plt Count 77 L MPV 10.3 Neut # (Auto) 3.4 Lymph # (Auto) 1.4 L [place] # (Auto) 0.7 Eos # (Auto) 0.1 Baso # (Auto) 0.0 Absolute Nucleated RBC 0.00 Nucleated RBC % 0.0 PT INR Sodium 136 Potassium 3.9 Chloride 101 Carbon Dioxide 26 Anion Gap 9.0 BUN 3 L Creatinine 0.4 L Estimated GFR (MDRD) 176 Glucose 97 Calcium 9.0 Total Bilirubin 1.5 H AST 76 H ALT 17 Alkaline Phosphatase 150 H Total Protein 7.3 Albumin 3.5 Globulin 3.8 Albumin/Globulin Ratio 0.9 L Lipase 43 Ethyl Alcohol 13.5 04/12/23 14:54 WBC RBC Hgb Hct MCV MCH MCHC RDW Plt Count MPV Neut # (Auto) Lymph # (Auto) [place] # (Auto) Eos # (Auto) Baso # (Auto) Absolute Nucleated RBC Nucleated RBC % PT 15.9 H INR 1.5 H Sodium Potassium Chloride Carbon Dioxide Anion Gap BUN Creatinine Estimated GFR (MDRD) Glucose Calcium Total Bilirubin AST ALT Alkaline Phosphatase Total Protein Albumin Globulin Albumin/Globulin Ratio Lipase Ethyl Alcohol Procedures - Paracentesis - Major Preparation: Consent obtained, Local anesthesia Location: RLQ Technique: Z-tract, Catheter over needle Fluid: Clear, Volume - enter cc (. 4 L) Aftercare: No complications PD Medical Decision Making - ED course ED course: 42-year-old woman requests requesting presents requesting paracentesis. INR is acceptable. Platelets are acceptable. Not intoxicated. 4 L paracentesis was done with symptomatic relief. I see no indication for diagnostic testing Departure - Departure Disposition: 01 Home, Self Care Clinical Impression: Alcoholic cirrhosis of liver with ascites Condition: Good Record reviewed to determine appropriate education?: Yes Instructions: Cirrhosis Liver Dc Comments: Abstain from alcohol and restart your chronic medications. Return for new or worsening symptoms. You have an appointment next week for another paracentesis if you need it.
[2023-04-12 16:40] VITALS: BP 128/74; O2SAT 100
== END 2023-04-12 16:33 | disposition home or self-care (01) ==
LOC: ED 14:01
DX: K70.31 Alcoholic cirrhosis of liver with ascites (principal); Z91.148 Patient's other noncompliance with medication regimen for other reason; F17.200 Nicotine dependence, unspecified, uncomplicated
CPT/HCPCS: 36415; 49082; 80053; 80320; 83690; 85025; 85610; 99283

== ENCOUNTER 2023-04-21 13:22 | Outpatient (CLI) | payer MEDICAID ==
[2023-04-21 14:13] LABS: BASOPHILS % (AUTO) 0.7 %; EOSINOPHILS % (AUTO) 0.5 %; HCT - HEMATOCRIT 33.5 % (37.0-47.0); HGB - HEMOGLOBIN 10.5 g/dL (12.0-16.0); LYMPHOCYTES # (AUTO) 1.8 10^3/uL (1.5-3.5); LYMPHOCYTES % (AUTO) 28.8 %; MEAN CORPUSCULAR HEMOGLOBIN 27.5 pg (27.0-31.0); MEAN CORPUSCULAR HGB CONC 31.3 g/dL (32.0-36.0); MEAN CORPUSCULAR VOLUME 87.7 fL (81.0-99.0); MEAN PLATELET VOLUME 10.9 fL (7.9-10.8); MONOCYTES # (AUTO) 0.9 10^3/uL (0.0-1.0); MONOCYTES % (AUTO) 14.1 %; NEUTROPHILS # (AUTO) 3.4 10^3/uL (1.5-6.6); NEUTROPHILS % (AUTO) 55.7 %; PLT - PLATELET COUNT 209 10^3/uL (130-450); RED BLOOD COUNT 3.82 10^6/uL (4.20-5.40); RED CELL DISTRIBUTION WIDTH 19.2 % (12.0-15.0); WHITE BLOOD COUNT 6.1 x10^3/uL (4.8-10.8)
[2023-04-21 14:25] LABS: INR 1.4 (0.8-1.2); PT - PROTHROMBIN TIME 15.4 secs (9.9-12.6)
--- NOTE | 2023-04-21 16:55 | Ultrasound Report ---
PROCEDURE: Abdominal Paracentesis INDICATIONS: ASCITES TECHNIQUE: The indications, alternatives, benefits, risks, and complications of the procedure were explained to the patient. Written informed consent was obtained and placed in the chart. The abdomen and pelvis were examined sonographically, and an appropriate site was chosen for paracentesis. The skin was pre pared and draped in the usual sterile fashion, and 1% lidocaine was infiltrated from the skin down th rough the peritoneal surface. A 19-gauge catheter-covered needle was then introduced into the perito teresa space, the catheter was advanced and the needle was withdrawn, and thereafter peritoneal fluid w as withdrawn. The catheter was then removed and a dressing was applied. The fluid was discarded if the clinician did not order diagnostic testing of the fluid. COMPARISON: None FINDINGS: Access site: Right lower quadrant Needle: One-Step centesis catheter with introducer needle. Fluid volume and description: Yellow 5 L Fluid sent for diagnostic testing: None Medications: 1% lidocaine for local anaesthesia. Complications: None. IMPRESSION: Successful ultrasound-guided paracentesis. Reviewed by: Lea Land MD on 04/21/2023 4:54 PM PST Approved by: Lea Land MD on 04/21/2023 4:54 PM PST Station ID: [id number]
== END 2023-04-21 13:23 | disposition home or self-care (01) ==
LOC: DI 13:22
PROVIDERS: ATTEND Physician Assistant
DX: K70.31 Alcoholic cirrhosis of liver with ascites (principal)
CPT/HCPCS: 36415; 49083; 85025; 85610

== ENCOUNTER 2023-05-05 13:40 | Outpatient (CLI) | payer MEDICAID | END 2023-05-05 13:41 | disposition home or self-care (01) | LOC: LAB.N 13:40 | PROVIDERS: ATTEND Physician Assistant | DX: K70.31 Alcoholic cirrhosis of liver with ascites (principal) | CPT/HCPCS: 36415; 82105 ==

== ENCOUNTER 2023-05-18 22:53 | Outpatient (CLI) | payer MEDICAID | END 2023-05-18 22:54 | disposition EMS.NT | LOC: EMS 22:53 | DX: M54.50 Low back pain, unspecified (principal); W18.30XA Fall on same level, unspecified, initial encounter; Y93.89 Activity, other specified; Y92.009 Unspecified place in unspecified non-institutional (private) residence as the place of occurrence of the external cause ==

== ENCOUNTER 2023-05-19 19:17 | Outpatient (CLI) | payer MEDICAID | END 2023-05-19 23:59 | disposition critical access hospital (66) | LOC: EMS 19:17 | DX: M54.50 Low back pain, unspecified (principal); W18.09XA Striking against other object with subsequent fall, initial encounter | CPT/HCPCS: A0425; A0429; A0999 ==

== ENCOUNTER 2023-05-19 19:33 | Emergency (ER) | payer MEDICAID ==
[2023-05-19 19:41] VITALS: BP 118/79
[2023-05-19 19:50] VITALS: O2SAT 98
--- NOTE | 2023-05-19 19:55 | ED Physician Documentation ---
PD HPI Fall - Stated complaint Stated Complaint: GLF/ETOH - Chief complaint Chief Complaint: Back Pain - History obtained from History obtained from: Patient - Additional information Additional information: 42-year-old female history of alcoholism with alcoholic cirrhosis presents after ground-level fall. 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 She is here with right hip and low back pain. She states that she thinks it is "just bruised." She did not hit her head, no loss of consciousness, denies any neck or upper back pain, no other extremity injuries. She does admit to drinking today though states she just drank "a couple of beers." She states otherwise feels well, denies any chest pain no difficulty breathing, no dizziness or weakness, no new abdominal symptoms. 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, Other : None HEENT: None Psych: None Musculoskeletal: None Derm: None - Past Surgical History Past Surgical History: Yes General: Other - Present Medications Home Medications: Ambulatory Orders Medication Instructions Recorded Confirmed Ibuprofen 200 - 600 mg PO Q4H PRN 07/07/22 07/07/22 Folic Acid 1 mg PO DAILY #30 tab 07/09/22 Lactulose 15 ml PO DAILY #240 ml 07/09/22 03/29/23 Pnv No.95/Ferrous Fum/Folic AC 1 each PO DAILY #30 tablet 07/09/22 [ Caplet] Spironolactone [Aldactone] 25 mg PO DAILY #30 tablet 07/09/22 03/29/23 Furosemide [Lasix] 10 mg PO DAILY 03/29/23 03/29/23 - Allergies Allergies/Adverse Reactions: Allergies Allergy/AdvReac Type Severity Reaction Status Date / Time amoxicillin Allergy Unknown Unknown Verified 05/19/23 19:36 - Social History Does the pt smoke?: Yes Smoking Status: Current every day smoker Does the pt drink ETOH?: Yes Does the pt have substance abuse?: Yes Substance Use and Type: Marijuana - Immunizations Immunizations are current?: No Immunizations: TDAP current <10years - POLST Patient has POLST: No POLST Status: Full Code PD ED PE NORMAL - Vitals Vital signs reviewed: Yes - General General: Alert and oriented X 3, No acute distress, Well developed/nourished, Other (Intoxicated but awake alert conversant pleasant and cooperative) - HEENT HEENT: Atraumatic, Moist mucous membranes, Pharynx benign - Neck Neck: Supple, no meningeal sign, No bony TTP - Cardiac Cardiac: RRR, No murmur - Respiratory Respiratory: No respiratory distress, Clear bilaterally - Abdomen Abdomen: Normal bowel sounds, Soft, Non tender, Other (Soft but protuberant) - Back Back: No CVA TTP, Other (Lumbosacral tenderness with palpation, and right hip) - Derm Derm: Normal color ( tenderness.), Warm and dry - Extremities Extremities: Other (Mild right hip tenderness with palpation no obvious deformity no rotation or shortening. No other extremity injuries.) - Neuro Neuro: Alert and oriented X 3, No motor deficit, No sensory deficit, Normal speech Eye Opening: Spontaneous Motor: Obeys Commands Verbal: Oriented GCS Score: 15 Results - Vitals Vitals: Vital Signs - 24 hr 05/19/23 05/19/23 19:37 19:42 Temperature 36.8 C Heart Rate 98 100 Respiratory 14 17 Rate Blood Pressure 118/79 118/79 O2 Saturation 97 98 Oxygen O2 Source Room air - Labs Labs: Laboratory Tests 05/19/23 05/19/23 20:07 20:07 WBC 8.4 RBC 4.13 L Hgb 11.3 L Hct 34.3 L MCV 83.1 MCH 27.4 MCHC 32.9 RDW 19.0 H Plt Count 191 MPV 9.6 Neut # (Auto) 3.7 Lymph # (Auto) 3.9 H [place] # (Auto) 0.6 Eos # (Auto) 0.1 Baso # (Auto) 0.0 Absolute Nucleated RBC 0.00 Nucleated RBC % 0.0 Sodium 141 Potassium 3.9 Chloride 108 Carbon Dioxide 24 Anion Gap 9.0 BUN 5 L Creatinine 0.4 L Estimated GFR (MDRD) 176 Glucose 87 Calcium 8.7 Total Bilirubin 0.7 AST 41 ALT 15 Alkaline Phosphatase 111 Total Protein 8.2 Albumin 3.8 Globulin 4.4 H Albumin/Globulin Ratio 0.9 L Lipase 39 Ethyl Alcohol 311.8 - Rads (name of study) No standard instances Relevant Findings:: Final report received PD Medical Decision Making - ED course Complexity details: reviewed results, re-evaluated patient, considered differential, d/w patient ED course: 42-year-old female with history of alcoholism presents after a stumble and fall onto her buttocks. She was complaining of tailbone pain and right hip pain though she is able to ambulate. I obtained x-rays of these areas and are negative. I was concern for alcohol intoxication we did obtain alcohol level which was in the 300s, her CBC and CMP are stable. The patient is awake alert and ambulatory here w/ steady gait but given her alcohol intoxication I advised that I could not discharge her until she was sober or had a sober ride. She subsequently left before a repeat alcohol level was obtained. Departure - Departure Disposition: Left Prior to Disposition Clinical Impression: Alcohol intoxication Qualifiers: Complication of substance-induced condition: uncomplicated Qualified Code(s): F10.920 - Alcohol use, unspecified with intoxication, uncomplicated Sacral contusion Qualifiers: Encounter type: initial encounter Qualified Code(s): S30.0XXA - Contusion of l ower back and pelvis, initial encounter Condition: Good Instructions: ED Low Back Pain Injury, ED Alcohol Intoxication Comments: Your x-rays today were negative, there are no signs of broken bones in your back or hip or pelvis. Please try to abstain from alcohol or try to utilize community resources for alcohol cessation.
[2023-05-19 20:13] LABS: BASOPHILS % (AUTO) 0.5 %; EOSINOPHILS # (AUTO) 0.1 10^3/uL (0.0-0.7); EOSINOPHILS % (AUTO) 1.1 %; HCT - HEMATOCRIT 34.3 % (37.0-47.0); HGB - HEMOGLOBIN 11.3 g/dL (12.0-16.0); LYMPHOCYTES # (AUTO) 3.9 10^3/uL (1.5-3.5); LYMPHOCYTES % (AUTO) 46.7 %; MEAN CORPUSCULAR HEMOGLOBIN 27.4 pg (27.0-31.0); MEAN CORPUSCULAR HGB CONC 32.9 g/dL (32.0-36.0); MEAN CORPUSCULAR VOLUME 83.1 fL (81.0-99.0); MEAN PLATELET VOLUME 9.6 fL (7.9-10.8); MONOCYTES # (AUTO) 0.6 10^3/uL (0.0-1.0); MONOCYTES % (AUTO) 7.3 %; NEUTROPHILS # (AUTO) 3.7 10^3/uL (1.5-6.6); NEUTROPHILS % (AUTO) 44.2 %; PLT - PLATELET COUNT 191 10^3/uL (130-450); RED BLOOD COUNT 4.13 10^6/uL (4.20-5.40); WHITE BLOOD COUNT 8.4 x10^3/uL (4.8-10.8)
[2023-05-19 20:28] LABS: ALBUMIN 3.8 g/dL (3.2-5.5); ALBUMIN/GLOBULIN RATIO 0.9 (1.0-2.2); BILIRUBIN,TOTAL 0.7 mg/dL (0.2-1.0); CALCIUM 8.7 mg/dL (8.5-10.3); CREATININE 0.4 mg/dL (0.6-1.3); ETOH - ETHANOL 311.8 mg/dL; POTASSIUM 3.9 mmol/L (3.5-4.5); TOTAL PROTEIN 8.2 g/dL (6.4-8.9)
--- NOTE | 2023-05-19 20:31 | XRAY Report ---
PROCEDURE: Lumbar Spine 2-3V INDICATIONS: fall TECHNIQUE: 3 views of the lumbar spine were acquired. COMPARISON: None. FINDINGS: Bones: 5 [id number] vertebrae are present. There is normal bony alignment. No vertebral body compression fractures. No suspicious bony lesions. Soft tissues: Overlying bowel gas pattern is normal. No suspicious soft tissue calcifications. IMPRESSION: No acute fracture. Reviewed by: Sandi Hill MD on 05/19/2023 8:30 PM PST Approved by: Sandi Hill MD on 05/19/2023 8:30 PM PST Station ID: [id number]
--- NOTE | 2023-05-19 20:33 | XRAY Report ---
PROCEDURE: Hip w/Pelvis 2-3V RT INDICATIONS: fall, intoxicated TECHNIQUE: 2 views of the hip were acquired. COMPARISON: None. FINDINGS: Bones: No fractures or dislocations. No suspicious bony lesions. Soft tissues: No suspicious soft tissue calcifications or masses. IMPRESSION: No acute bony abnormality. Reviewed by: Sandi Hill MD on 05/19/2023 8:32 PM PST Approved by: Sandi Hill MD on 05/19/2023 8:32 PM PST Station ID: [id number]
== END 2023-05-19 20:00 | disposition home or self-care (01) ==
LOC: ED 19:33
DX: S30.0XXA Contusion of lower back and pelvis, initial encounter (principal); W01.0XXA Fall on same level from slipping, tripping and stumbling without subsequent striking against object, initial encounter; Y93.89 Activity, other specified; F10.129 Alcohol abuse with intoxication, unspecified; Y90.8 Blood alcohol level of 240 mg/100 ml or more; F17.200 Nicotine dependence, unspecified, uncomplicated
CPT/HCPCS: 36415; 80053; 80320; 83690; 85025; 99281; 99283

== ENCOUNTER 2023-05-23 23:26 | Emergency (ER) | payer MEDICAID ==
[2023-05-23 23:43] VITALS: O2SAT 100
--- NOTE | 2023-05-24 00:56 | ED Physician Documentation ---
PD HPI ABD PAIN - Stated complaint Stated Complaint: LAW - Chief complaint Chief Complaint: Abd Pain - History obtained from History obtained from: Patient - Additional information Additional information: Pt with h/o end-stage liver disease is sent to the ED from the care home for concerns about "swollen abdomen". The pt has a long-standing h/o alcoholic cirrhosis and has an appointment with a liver specialist coming up on the 11 of this month, she states. No jaundice. No difficulty breathing. Abdominal size is about at baseline. No pain or fever. No other complaints at this time. PD PAST MEDICAL HISTORY - Past Medical History Cardiovascular: Hypertension Respiratory: None Neuro: None, Other Endocrine/Autoimmune: None GI: Cirrhosis STRATEGY LEAD: None, Other : None HEENT: None Psych: None Musculoskeletal: None Derm: None - Past Surgical History Past Surgical History: Yes General: Other - Present Medications Home Medications: Ambulatory Orders Medication Instructions Recorded Confirmed Ibuprofen 200 - 600 mg PO Q4H PRN 07/07/22 07/07/22 Folic Acid 1 mg PO DAILY #30 tab 07/09/22 Lactulose 15 ml PO DAILY #240 ml 07/09/22 03/29/23 Pnv No.95/Ferrous Fum/Folic AC 1 each PO DAILY #30 tablet 07/09/22 [ Caplet] Spironolactone [Aldactone] 25 mg PO DAILY #30 tablet 07/09/22 03/29/23 Furosemide [Lasix] 10 mg PO DAILY 03/29/23 03/29/23 - Allergies Allergies/Adverse Reactions: Allergies Allergy/AdvReac Type Severity Reaction Status Date / Time amoxicillin Allergy Unknown Unknown Verified 05/30/23 16:27 - Social History Does the pt smoke?: Yes Smoking Status: Current every day smoker Does the pt drink ETOH?: Yes Does the pt have substance abuse?: Yes - Immunizations Immunizations are current?: No Immunizations: TDAP current <10years - POLST Patient has POLST: No POLST Status: Full Code PD ED PE NORMAL - Vitals Vital signs reviewed: Yes - General General: Alert and oriented X 3, No acute distress, Well developed/nourished - HEENT HEENT: Atraumatic, PERRL, EOMI, Moist mucous membranes, Other (No icterus) - Neck Neck: Supple, no meningeal sign - Cardiac Cardiac: RRR, No murmur - Respiratory Respiratory: No respiratory distress, Clear bilaterally - Abdomen Abdomen: Soft, Non tender, Other (distended abdomen, about the size of late . Not tense.) - Derm Derm: Normal color, Warm and dry, No rash - Extremities Extremities: No deformity - Neuro Neuro: Alert and oriented X 3 - Psych Psych: Normal mood, Normal affect Results - Vitals Vitals: Oxygen O2 Source Room air PD Medical Decision Making - ED course Complexity details: considered differential, d/w patient ED course: I d/w pt that she has a chronically distended abdomen, and although this is sure to cause some chronic discomfort, there is no indication for emergent paracentesis today. The pt has normal vital signs and clear lungs, and is in no distress whatsoever. Her abdomen is distended but soft, and the pt is afebrile. I have explained to the officer accompanying the pt, as well as to the pt herself, that we are very full and our staff is stretched thin as it is, and we do not have the luxury of performing this time-consuming procedure electively today. The pt is scheduled to see her specialist very soon, and an elective, outpatient tap can be scheduled through them. We have discussed the usual indications for return. Departure - Departure Disposition: 01 Home, Self Care Clinical Impression: End stage liver disease, Alcoholic cirrhosis of liver with ascites Condition: Stable Instructions: Cirrhosis Liver Dc Comments: Your abdomen is distended, as it always is when we evaluate you, but despite the swelling, it continues to be soft. Undoubtedly you have some fluid buildup in your abdominal cavity, but your vital signs are completely normal. You have good oxygen saturation, no fever, and no elevation in your respiratory rate. You are not struggling to breathe and your lungs are clear. There is no evidence of an intra-abdominal infection. Although it is most convenient to stop into the ER for a paracentesis, or draining of the abdomen, this is not a procedure that needs to be done emergently tonight. In fact, it is most appropriate for your primary doctor or liver specialist to schedule this procedure to be done as an outpatient. We do perform paracentesis when there are emergent indications to do so, but these do not apply tonight, as your vital signs are completely normal and physical exam otherwise is normal. Unfortunately, we do not have the luxury of being able to do nonemergent procedures this evening, as the emergency department has been extremely full and we are already short staffed. Please call your doctor's office and ask them to schedule an outpatient paracentesis for you. When you see your liver specialist on the , you should ask her about getting set up for recurring, regular appointments to have paracentesis done, so that you do not have to wait until you meet emergent conditions for this procedure to be performed. For now, please continue your usual medications. Forms: PCP List Discharge Date/Time: 05/24/23 01:04
[2023-05-24 01:15] VITALS: BP 117/68
== END 2023-05-24 01:04 | disposition home or self-care (01) ==
LOC: ED 23:26
DX: K72.10 Chronic hepatic failure without coma (principal); K70.31 Alcoholic cirrhosis of liver with ascites; I10 Essential (primary) hypertension; F17.200 Nicotine dependence, unspecified, uncomplicated; Z79.899 Other long term (current) drug therapy
CPT/HCPCS: 99281; 99283

== ENCOUNTER 2023-05-27 22:23 | Outpatient (CLI) | payer MEDICAID | END 2023-05-27 23:59 | disposition critical access hospital (66) | LOC: EMS 22:23 | DX: F10.10 Alcohol abuse, uncomplicated (principal) | CPT/HCPCS: A0425; A0429; A0999 ==

== ENCOUNTER 2023-05-27 22:47 | Emergency (ER) | payer MEDICAID ==
--- NOTE | 2023-05-28 02:23 | ED Physician Documentation ---
History of Present Illness - Stated complaint Stated Complaint: ETOH - Chief complaint Chief Complaint: General - History obtained from History obtained from: Patient - Additonal information Additional information: HPI from patient. Patient is drowsy on initial attempts to discuss HPI/ROS and thus information below is on subsequent reevaluation later in ED stay. Patient Boyfriend called 911 due to patient being intoxicated, needing help sitting up and ambulating to/from bathroom. Patient has h/o cirrhosis with ascites. She tells me she is in ED because of cirrhosis. On my HPI she denies pain (ED triage note indicates patient was c/o pain). She is c/o abdominal distention. She admits to drinking alcohol tonight; she says she recently was sober for 8 months but relapsed, particularly due to "the holidays" (per patient). She has upcoming appointment with PCP on 06/01 (per recent ED MD note from 05/25/23 [facility] ED visit). 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, Other : None HEENT: None Psych: None Musculoskeletal: None Derm: None - Past Surgical History Past Surgical History: Yes General: Other - Present Medications Home Medications: Ambulatory Orders Medication Instructions Recorded Confirmed Ibuprofen 200 - 600 mg PO Q4H PRN 07/07/22 07/07/22 Folic Acid 1 mg PO DAILY #30 tab 07/09/22 Lactulose 15 ml PO DAILY #240 ml 07/09/22 03/29/23 Pnv No.95/Ferrous Fum/Folic AC 1 each PO DAILY #30 tablet 07/09/22 [ Caplet] Spironolactone [Aldactone] 25 mg PO DAILY #30 tablet 07/09/22 03/29/23 Furosemide [Lasix] 10 mg PO DAILY 03/29/23 03/29/23 - Allergies Allergies/Adverse Reactions: Allergies Allergy/AdvReac Type Severity Reaction Status Date / Time amoxicillin Allergy Unknown Unknown Verified 05/28/23 02:06 - Social History Does the pt smoke?: Yes Smoking Status: Current every day smoker Does the pt drink ETOH?: Yes Does the pt have substance abuse?: Yes - Immunizations Immunizations are current?: No Immunizations: TDAP current <10years - POLST Patient has POLST: No POLST Status: Full Code PD ED PE NORMAL - Vitals Vital signs reviewed: Yes - General General: No acute distress, Well developed/nourished, Other (drowsy, falls asleep at times but awakens to voice and is AAOx3 (when reexamined/reinterviewed later in stay, with this H+P reflecting the later portion of her stay)) - Cardiac Cardiac: RRR, No murmur - Respiratory Respiratory: No respiratory distress, Clear bilaterally - Abdomen Abdomen: Soft, Non tender PD ED PE EXPANDED - Abdomen Abdomen: Distended (moderately distended). No: Tender to palpation Results - Vitals Vitals: Oxygen O2 Source Room air - Labs Labs: Laboratory Tests 05/28/23 05/28/23 02:13 02:13 WBC 6.7 RBC 3.99 L Hgb 11.2 L Hct 33.8 L MCV 84.7 MCH 28.1 MCHC 33.1 RDW 18.8 H Plt Count 162 MPV 10.6 Neut # (Auto) 3.1 Lymph # (Auto) 2.9 [place] # (Auto) 0.7 Eos # (Auto) 0.1 Baso # (Auto) 0.0 Absolute Nucleated RBC 0.00 Nucleated RBC % 0.0 Sodium 138 Potassium 3.9 Chloride 101 Carbon Dioxide 26 Anion Gap 11.0 BUN 5 L Creatinine 0.4 L Estimated GFR (MDRD) 176 Glucose 85 Calcium 8.5 Total Bilirubin 0.7 AST 38 ALT 14 Alkaline Phosphatase 113 Total Protein 7.6 Albumin 3.5 Globulin 4.1 Albumin/Globulin Ratio 0.9 L Lipase 12 Ethyl Alcohol 263.0 PD Medical Decision Making - ED course Complexity details: reviewed old records, reviewed results, re-evaluated patient, considered differential, d/w patient ED course: Patient held in ED for over 7 hours, mostly awaiting adequate sobriety and wakefulness to allow for useful HPI/ROS and accurate physical exam (such as assessing tenderness, mental status). CBC and ER abdominal panel are surprisingly without concerning/diagnostic findings. Mildly low hgb (11.2) noted. Low BUN (5) and creatinine (0.4) are likely reflective of advanced liver disease. LFTs normal (although abnormal albumin/globulin ratio noted). Her serum ethanol is high at 0.263. Results d/w patient including the ethanol level. No further emergent testing nor treatment is indicated at this time. Patient was T+R from this ED 05/25/23 and d/c instructions included specific mention that she needs to establish with local PCP (or regional) who can perform, or arrange for, regularly scheduled paracenteses. The same H+P mentions an upcoming appointment (06/01) and I reinforced with patient the critical importance of keeping this appointment. I specifically instructed her to make solid arrangements for transport with a back-up plan so that she will not miss the appointment. I also explained to her that she cannot show up to the appointment intoxicated. Departure - Departure Disposition: 01 Home, Self Care Clinical Impression: Alcoholic cirrhosis of liver with ascites Condition: Good Instructions: ED Cirrhosis Liver, ED Alcohol Abuse Comments: Results of al's blood tests were reassuring, with normal liver function tests and a normal white blood cell count. As we discussed, be certain to follow-up as scheduled this week with your doctor. Forms: PCP List Discharge Date/Time: 05/28/23 06:21
[2023-05-28 02:38] LABS: BASOPHILS % (AUTO) 0.4 %; EOSINOPHILS # (AUTO) 0.1 10^3/uL (0.0-0.7); HCT - HEMATOCRIT 33.8 % (37.0-47.0); HGB - HEMOGLOBIN 11.2 g/dL (12.0-16.0); LYMPHOCYTES # (AUTO) 2.9 10^3/uL (1.5-3.5); LYMPHOCYTES % (AUTO) 42.9 %; MEAN CORPUSCULAR HEMOGLOBIN 28.1 pg (27.0-31.0); MEAN CORPUSCULAR HGB CONC 33.1 g/dL (32.0-36.0); MEAN CORPUSCULAR VOLUME 84.7 fL (81.0-99.0); MEAN PLATELET VOLUME 10.6 fL (7.9-10.8); MONOCYTES # (AUTO) 0.7 10^3/uL (0.0-1.0); NEUTROPHILS # (AUTO) 3.1 10^3/uL (1.5-6.6); NEUTROPHILS % (AUTO) 45.6 %; PLT - PLATELET COUNT 162 10^3/uL (130-450); RED BLOOD COUNT 3.99 10^6/uL (4.20-5.40); RED CELL DISTRIBUTION WIDTH 18.8 % (12.0-15.0); WHITE BLOOD COUNT 6.7 x10^3/uL (4.8-10.8)
[2023-05-28 02:51] VITALS: O2SAT 95
[2023-05-28 02:55] LABS: ALBUMIN 3.5 g/dL (3.2-5.5); ALBUMIN/GLOBULIN RATIO 0.9 (1.0-2.2); BILIRUBIN,TOTAL 0.7 mg/dL (0.2-1.0); CALCIUM 8.5 mg/dL (8.5-10.3); CREATININE 0.4 mg/dL (0.6-1.3); POTASSIUM 3.9 mmol/L (3.5-4.5); TOTAL PROTEIN 7.6 g/dL (6.4-8.9)
[2023-05-28] MEDS ORDERED: SODIUM CHLORIDE 0.9% 500 ML IV STA (05:08)
[2023-05-28 05:37] VITALS: BP 115/78
== END 2023-05-28 06:21 | disposition home or self-care (01) ==
LOC: EDUNIT# → ED 22:47
DX: F10.129 Alcohol abuse with intoxication, unspecified (principal); K70.31 Alcoholic cirrhosis of liver with ascites; F17.200 Nicotine dependence, unspecified, uncomplicated
CPT/HCPCS: 36415; 80053; 80320; 83690; 85025; 99283

== ENCOUNTER 2023-05-30 16:21 | Emergency (ER) | payer OTHER, MEDICAID ==
--- NOTE | 2023-05-30 16:26 | ED Physician Documentation ---
History of Present Illness - Stated complaint Stated Complaint: FIT - History obtained from History obtained from: Patient, Police - Additonal information Additional information: The patient is brought to the emergency department by police for chief complaint of needing medical clearance to book. The patient has no complaints acutely but was apparently intoxicated this afternoon. She was arrested for violating court order which she was not supposed to be in the same vicinity as her significant other. The patient did not require any forceful takedown and did not resist arrest. She denies any trauma during the arrest process. She states that she continues to have a an edematous, enlarged abdomen, consistent with her alcoholic liver failure. The patient denies any fevers or chills. She states she "bruised her tailbone" by "caring and an arm [place]". It is not clear exactly how the patient has come to feel that she has a coccygeal contusion, as it does not sound like she fell, she does deny this. No other complaints at this time. 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, Other : None HEENT: None Psych: None Musculoskeletal: None Derm: None - Past Surgical History Past Surgical History: Yes General: Other - Present Medications Home Medications: Ambulatory Orders Medication Instructions Recorded Confirmed Ibuprofen 200 - 600 mg PO Q4H PRN 07/07/22 07/07/22 Folic Acid 1 mg PO DAILY #30 tab 07/09/22 Lactulose 15 ml PO DAILY #240 ml 07/09/22 03/29/23 Pnv No.95/Ferrous Fum/Folic AC 1 each PO DAILY #30 tablet 07/09/22 [ Caplet] Spironolactone [Aldactone] 25 mg PO DAILY #30 tablet 07/09/22 03/29/23 Furosemide [Lasix] 10 mg PO DAILY 03/29/23 03/29/23 - Allergies Allergies/Adverse Reactions: Allergies Allergy/AdvReac Type Severity Reaction Status Date / Time amoxicillin Allergy Unknown Unknown Verified 05/28/23 02:06 - Social History Does the pt smoke?: Yes Smoking Status: Current every day smoker Does the pt drink ETOH?: Yes Does the pt have substance abuse?: Yes - Immunizations Immunizations are current?: No Immunizations: TDAP current <10years - POLST Patient has POLST: No POLST Status: Full Code PD ED PE NORMAL - Vitals Vital signs reviewed: Yes - General General: No acute distress, Well developed/nourished, Other (Alert, answers questions appropriately, smells of alcohol.) - HEENT HEENT: Atraumatic, PERRL, EOMI, Moist mucous membranes - Neck Neck: Supple, no meningeal sign - Cardiac Cardiac: RRR, No murmur - Respiratory Respiratory: No respiratory distress, Clear bilaterally - Abdomen Abdomen: Soft, Non tender, Other (Notably distended abdomen, not tense.) - Derm Derm: Normal color, Warm and dry, No rash - Extremities Extremities: No deformity - Neuro Neuro: Other - Psych Psych: Normal mood, Normal affect Results - Vitals Vitals: Oxygen O2 Source Room air PD Medical Decision Making - ED course Complexity details: considered differential, d/w patient ED course: The patient did not seem to have any acute issues here today and I did not feel any emergent workup or interventions are indicated. I have cleared the patient to be booked into retirement. She has been given the usual indications for return. Departure - Departure Disposition: 01 Home, Self Care Clinical Impression: Alcoholic cirrhosis of liver Qualifiers: Ascites presence: with ascites Qualified Code(s): K70.31 - Alcoholic cirrhosis of liver with ascites Alcohol intoxication Qualifiers: Complication of substance-induced condition: uncomplicated Qualified Code(s): F10.920 - Alcohol use, unspecified with intoxication, uncomplicated Condition: Stable Instructions: ED Alcohol Intoxication Comments: Fit for confinement.
[2023-05-30 16:27] VITALS: BP 140/89; O2SAT 100
== END 2023-05-30 16:41 | disposition home or self-care (01) ==
LOC: ED 16:21
DX: K70.31 Alcoholic cirrhosis of liver with ascites (principal); F10.920 Alcohol use, unspecified with intoxication, uncomplicated; I10 Essential (primary) hypertension; F17.200 Nicotine dependence, unspecified, uncomplicated
CPT/HCPCS: 99281; 99282

== ENCOUNTER 2023-08-08 08:30 | Outpatient (CLI) | payer MEDICAID ==
[2023-08-08 08:48] LABS: INR 1.4 (0.8-1.2)
--- NOTE | 2023-08-08 16:21 | Ultrasound Report ---
PROCEDURE: Abdominal Paracentesis INDICATIONS: ASCITES TECHNIQUE: The indications, alternatives, benefits, risks, and complications of the procedure were explained to the patient. Written informed consent was obtained and placed in the chart. The abdomen and pelvis were examined sonographically, and an appropriate site was chosen for paracentesis. The skin was pre pared and draped in the usual sterile fashion, and 1% lidocaine was infiltrated from the skin down th rough the peritoneal surface. A 19-gauge catheter-covered needle was then introduced into the perito teresa space, the catheter was advanced and the needle was withdrawn, and thereafter peritoneal fluid w as withdrawn. The catheter was then removed and a dressing was applied. The fluid was discarded if the clinician did not order diagnostic testing of the fluid. COMPARISON: 04/21/2023 FINDINGS: Access site: Right lower quadrant Needle: One-Step centesis catheter with introducer needle. Fluid volume and description: 5 L of clear yellow fluid Fluid sent for diagnostic testing: No Medications: 1% lidocaine for local anaesthesia. Complications: None. IMPRESSION: Successful ultrasound-guided paracentesis. Reviewed by: Sal Vallecillo MD on 08/08/2023 4:19 PM PDT Approved by: Sal Vallecillo MD on 08/08/2023 4:19 PM PDT Station ID: [id number]
== END 2023-08-08 08:31 | disposition home or self-care (01) ==
LOC: LAB 08:30
PROVIDERS: ATTEND Nurse Practitioner
DX: K70.31 Alcoholic cirrhosis of liver with ascites (principal)
CPT/HCPCS: 36415; 49083; 85049; 85610

== ENCOUNTER 2023-09-06 13:40 | Outpatient (CLI) | payer MEDICAID ==
[2023-09-06 17:45] LABS: BASOPHILS % (AUTO) 0.5 %; EOSINOPHILS # (AUTO) 0.1 10^3/uL (0.0-0.7); EOSINOPHILS % (AUTO) 1.1 %; HCT - HEMATOCRIT 39.5 % (37.0-47.0); HGB - HEMOGLOBIN 12.5 g/dL (12.0-16.0); LYMPHOCYTES # (AUTO) 2.4 10^3/uL (1.5-3.5); LYMPHOCYTES % (AUTO) 28.5 %; MEAN CORPUSCULAR HEMOGLOBIN 27.7 pg (27.0-31.0); MEAN CORPUSCULAR HGB CONC 31.6 g/dL (32.0-36.0); MEAN CORPUSCULAR VOLUME 87.4 fL (81.0-99.0); MONOCYTES % (AUTO) 11.8 %; NEUTROPHILS # (AUTO) 4.9 10^3/uL (1.5-6.6); NEUTROPHILS % (AUTO) 57.9 %; PLT - PLATELET COUNT 190 10^3/uL (130-450); RED BLOOD COUNT 4.52 10^6/uL (4.20-5.40); RED CELL DISTRIBUTION WIDTH 19.6 % (12.0-15.0); WHITE BLOOD COUNT 8.4 x10^3/uL (4.8-10.8)
[2023-09-06 17:50] LABS: BILIRUBIN,URINE NEGATIVE (NEGATIVE); GLUCOSE, URINE (UA) NEGATIVE (NEGATIVE); KETONES,URINE (UA) NEGATIVE (NEGATIVE); LEUKOCYTE ESTERASE, URINE MODERATE (NEGATIVE); NITRITE,URINE NEGATIVE (NEGATIVE); OCCULT BLOOD,URINE NEGATIVE (NEGATIVE); PH,URINE 6.5 PH (5.0-7.5); PROTEIN,URINE TRACE mg/dL (NEGATIVE); UROBILINOGEN,URINE 1 (NORMAL) E.U./dL (NORMAL)
[2023-09-06 17:52] LABS: CLARITY,URINE CLOUDY (CLEAR)
[2023-09-06 18:05] LABS: ALBUMIN/GLOBULIN RATIO 0.8 (1.0-2.2); BILIRUBIN,TOTAL 0.9 mg/dL (0.2-1.0); CALCIUM 10.3 mg/dL (8.5-10.3); CREATININE 0.4 mg/dL (0.6-1.3); TOTAL PROTEIN 8.8 g/dL (6.4-8.9)
[2023-09-06 18:11] LABS: WBC,URINE >25 /HPF (0-5)
[2023-09-06 18:12] LABS: BACTERIA,URINE Moderate /HPF (None Seen); RBC,URINE 0-5 /HPF (0-5); SQUAMOUS EPITHELIAL CELL,UR MANY Squamous (<= Few)
== END 2023-09-06 13:41 | disposition home or self-care (01) ==
LOC: LAB.N 13:40
PROVIDERS: ATTEND Physician Assistant
DX: K70.31 Alcoholic cirrhosis of liver with ascites (principal)
CPT/HCPCS: 36415; 80053; 81001; 82150; 83690; 85025; 87086

== ENCOUNTER 2023-11-29 13:59 | Outpatient (CLI) | payer MEDICAID | END 2023-11-29 23:59 | disposition critical access hospital (66) | LOC: EMS 13:59 | DX: R10.817 Generalized abdominal tenderness (principal); F10.10 Alcohol abuse, uncomplicated | CPT/HCPCS: A0425; A0429; A0999 ==

== ENCOUNTER 2023-11-29 14:18 | Emergency (ER) | payer MEDICAID ==
--- NOTE | 2023-11-29 15:20 | ED Physician Documentation ---
History of Present Illness - Stated complaint Stated Complaint: ABD PX - Chief complaint Chief Complaint: Abd Pain - Additonal information Additional information: 43 yo female with hx of HTN, substance abuse, presents to the ER via EMS for al cohol intoxication. Pt is slow to provide much history, story changes and she is quite lethargic, arrousable with sternal rub. She states shes here for chronic back pain, toe pain, and missed her PCP appt. Endorses in alcohol use prior to arrival. Very difficult to get patient to state why she is here in the emergency department today. 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, Other : None HEENT: None Psych: None Musculoskeletal: None Derm: None - Past Surgical History Past Surgical History: Yes General: Other - Present Medications Home Medications: Ambulatory Orders Medication Instructions Recorded Confirmed Furosemide [Lasix] 40 mg PO DAILY 03/29/23 11/29/23 Spironolactone [Aldactone] 100 mg PO DAILY 11/29/23 11/29/23 - Allergies Allergies/Adverse Reactions: Allergies Allergy/AdvReac Type Severity Reaction Status Date / Time amoxicillin Allergy Unknown Unknown Verified 11/29/23 15:15 - Social History Does the pt smoke?: Yes Smoking Status: Current every day smoker Does the pt drink ETOH?: Yes Does the pt have substance abuse?: Yes - Immunizations Immunizations are current?: No Immunizations: TDAP current <10years - POLST Patient has POLST: No POLST Status: Full Code PD ED PE NORMAL - Vitals Vital signs reviewed: Yes - General General: Other (lethargic, appears intoxicated. ) - HEENT HEENT: Atraumatic, PERRL, EOMI - Neck Neck: Supple, no meningeal sign, No bony TTP - Cardiac Cardiac: RRR - Respiratory Respiratory: No respiratory distress - Abdomen Abdomen: Normal bowel sounds, Soft, Non tender, No organomegaly - Back Back: No CVA TTP - Derm Derm: Normal color, Warm and dry - Extremities Extremities: No deformity, No tenderness to palpate, No edema, No calf tenderness / cord PD ED PE EXPANDED - Neuro Neuro: Lethargic. No: Obtunded, Unresponsive - Psych Psych: Intoxicated / AOB, Withdrawn, Poor eye contact Results - Vitals Vitals: Vital Signs - 24 hr 11/29/23 11/29/23 21:00 22:12 Temperature 36.2 C L 36 C L Heart Rate 84 74 Respiratory 16 14 Rate Blood Pressure 111/63 112/63 O2 Saturation 99 100 Oxygen O2 Source Room air - Labs Labs: Laboratory Tests 11/29/23 11/29/23 11/29/23 15:37 15:37 17:50 WBC 5.8 RBC 4.22 Hgb 12.5 Hct 37.6 MCV 89.1 MCH 29.6 MCHC 33.2 RDW 14.4 Plt Count 89 L MPV 10.0 Neut # (Auto) 2.4 Lymph # (Auto) 3.1 [place] # (Auto) 0.3 Eos # (Auto) 0.1 Baso # (Auto) 0.0 Absolute Nucleated RBC 0.00 Nucleated RBC % 0.0 Sodium 142 Potassium 3.9 Chloride 106 Carbon Dioxide 26 Anion Gap 10.0 BUN 3 L Creatinine 0.3 L Estimated GFR (MDRD) 244 Glucose 91 Calcium 8.9 Magnesium 1.6 L Total Bilirubin 0.4 AST 57 H ALT 23 Alkaline Phosphatase 152 H Total Protein 8.5 Albumin 4.2 Globulin 4.3 H Albumin/Globulin Ratio 1.0 Lipase 44 Urine Opiates Screen NEGATIVE Ur Buprenorphine Scrn NEGATIVE Ur Oxycodone Screen NEGATIVE Urine Methadone Screen NEGATIVE Ur Barbiturates Screen NEGATIVE Ur Tricyclics Screen NEGATIVE Ur Phencyclidine Scrn NEGATIVE Ur Amphetamine Screen NEGATIVE U Methamphetamines Scrn NEGATIVE U Benzodiazepines Scrn NEGATIVE Urine Cocaine Screen NEGATIVE U Cannabinoids Screen NEGATIVE Ur Drug Screen Comment CUTOFF CONC BELOW: Ethyl Alcohol 478.4 11/29/23 21:23 WBC RBC Hgb Hct MCV MCH MCHC RDW Plt Count MPV Neut # (Auto) Lymph # (Auto) [place] # (Auto) Eos # (Auto) Baso # (Auto) Absolute Nucleated RBC Nucleated RBC % Sodium Potassium Chloride Carbon Dioxide Anion Gap BUN Creatinine Estimated GFR (MDRD) Glucose Calcium Magnesium Total Bilirubin AST ALT Alkaline Phosphatase Total Protein Albumin Globulin Albumin/Globulin Ratio Lipase Urine Opiates Screen Ur Buprenorphine Scrn Ur Oxycodone Screen Urine Methadone Screen Ur Barbiturates Screen Ur Tricyclics Screen Ur Phencyclidine Scrn Ur Amphetamine Screen U Methamphetamines Scrn U Benzodiazepines Scrn Urine Cocaine Screen U Cannabinoids Screen Ur Drug Screen Comment Ethyl Alcohol 278.4 - Rads (name of study) Head CT without Relevant Findings:: Final report received, EMP independent interpretation of test, Other (No acute intracranial pathology or abnormalities. She does have atrophy advanced for patient's age.) Cervical spine without Relevant Findings:: Final report received, EMP independent interpretation of test, Other (No subluxation no acute displaced fracture or traumatic subluxation) PD Medical Decision Making - ED course ED course: 43-year-old female presents emergency department for unclear reason but she is quite intoxicated. Originally she is difficult to arouse she maintained her sats well remained hemodynamically stable. Labs are complete for further evaluation no leukocytosis no anemia magnesium slightly suppressed at 1.6 alk phos elevated at 152 initial alcohol level is at 478. Patient was observed for several hours in the emergency department she eventually metabolized to her baseline self repeat alcohol level is at 278 patient walking around making clear statements she said that she would like to discharge now and has no complaints. Head CT as well as cervical CT was complete for further evaluation and did not reveal any intracranial abnormalities or subluxation or cervical fractures. At this point in time given that patient is mentating well and I believe that she is within sound mind and at her baseline given her chronic alcohol dependence I believe that she is safe for discharge. Return precautions given all questions answered patient told to attempt to withdrawal from alcohol safely she is offered resources but she declines she is offered to speak with social work but she also declines. Departure - Departure Disposition: 01 Home, Self Care Clinical Impression: EtOH dependence, Alcoholism, ETOH abuse Instructions: ED Alcohol Intoxication Comments: Azul we have completed a head CT as well as a neck CT and we are not seeing any acute abnormalities or findings. We have completed some basic labs and again no acute abnormalities or findings aside from your very severely elevated alcohol level of 478. I would strongly encourage you to cut back on your alcohol and eventually quit drinking altogether. Please help with your primary care provider to see if there is any resources that they have to help you come off alcohol come back to the ER if you have any chest pain, shortness of breath, severe alcohol withdrawal symptoms, or any other concerning symptoms. Forms: PCP List Discharge Date/Time: 11/29/23 22:12
[2023-11-29] MEDS: SODIUM CHLORIDE 0.9% 1,000 ML IV ONE (15:38)
[2023-11-29 15:49] LABS: BASOPHILS % (AUTO) 0.3 %; EOSINOPHILS # (AUTO) 0.1 10^3/uL (0.0-0.7); EOSINOPHILS % (AUTO) 0.9 %; HCT - HEMATOCRIT 37.6 % (37.0-47.0); HGB - HEMOGLOBIN 12.5 g/dL (12.0-16.0); LYMPHOCYTES # (AUTO) 3.1 10^3/uL (1.5-3.5); MEAN CORPUSCULAR HEMOGLOBIN 29.6 pg (27.0-31.0); MEAN CORPUSCULAR HGB CONC 33.2 g/dL (32.0-36.0); MEAN CORPUSCULAR VOLUME 89.1 fL (81.0-99.0); MONOCYTES # (AUTO) 0.3 10^3/uL (0.0-1.0); MONOCYTES % (AUTO) 4.9 %; NEUTROPHILS # (AUTO) 2.4 10^3/uL (1.5-6.6); NEUTROPHILS % (AUTO) 40.7 %; PLT - PLATELET COUNT 89 10^3/uL (130-450); RED BLOOD COUNT 4.22 10^6/uL (4.20-5.40); RED CELL DISTRIBUTION WIDTH 14.4 % (12.0-15.0); WHITE BLOOD COUNT 5.8 x10^3/uL (4.8-10.8)
[2023-11-29 16:00] LABS: ALBUMIN 4.2 g/dL (3.2-5.5); BILIRUBIN,TOTAL 0.4 mg/dL (0.2-1.0); CALCIUM 8.9 mg/dL (8.5-10.3); CREATININE 0.3 mg/dL (0.6-1.3); ETOH - ETHANOL 478.4 mg/dL; MAGNESIUM 1.6 mg/dL (1.7-2.3); POTASSIUM 3.9 mmol/L (3.5-4.5); TOTAL PROTEIN 8.5 g/dL (6.4-8.9)
--- NOTE | 2023-11-29 16:35 | CT Report ---
PROCEDURE: Cervical Spine WO INDICATIONS: GLF, head injury TECHNIQUE: Noncontrast 3 mm thick sections acquired from the skull base to the T4 level. Sagittal and coronal r eformats were then constructed. For radiation dose reduction, the following was used: automated exp osure control, adjustment of mA and/or kV according to patient size. COMPARISON: None. FINDINGS: Image quality: Excellent. Bones: No fractures or dislocations. Visualized superior ribs are intact. Soft tissues: Prevertebral soft tissues are normal in thickness. No paravertebral hematomas. No ap ical pneumothoraces. IMPRESSION: No acute, displaced fracture or traumatic subluxation. Reviewed by: Devyn Dunbar MD on 11/29/2023 4:34 PM PDT Approved by: Devyn Dunbar MD on 11/29/2023 4:34 PM PDT Station ID: [id number]
--- NOTE | 2023-11-29 16:36 | CT Report ---
PROCEDURE: Head WO INDICATIONS: GLF, ETOH use TECHNIQUE: Noncontrast 4.5 mm thick angled axial sections acquired from the foramen magnum to the vertex. For r adiation dose reduction, the following was used: automated exposure control, adjustment of mA and/or kV according to patient size. COMPARISON: None. FINDINGS: Image quality: Excellent. CSF spaces: Basal cisterns are patent. No extra-axial fluid collections. Ventricles are normal in size and shape. Brain: No midline shift. No intracranial masses or hemorrhage. There is volume loss advanced for pa tient's age. Rosales-white matter interface is normal. Skull and face: Calvarium and visualized facial bones are intact, without suspicious lesions. Sinuses: Visualized sinuses and mastoids are clear. IMPRESSION: No acute intracranial pathology. Atrophy advanced for patient's age. Reviewed by: Devyn Dunbar MD on 11/29/2023 4:35 PM PDT Approved by: Devyn Dunbar MD on 11/29/2023 4:35 PM PDT Station ID: [id number]
[2023-11-29 18:22] LABS: AMPHETAMINE SCREEN,URINE NEGATIVE (NEGATIVE); BARBITURATE SCREEN,UR NEGATIVE (NEGATIVE); BENZODIAZEPINES SCREEN, URINE NEGATIVE (NEGATIVE); BUPRENORPHINE SCREEN, URINE NEGATIVE (NEGATIVE); COCAINE SCREEN URINE NEGATIVE (NEGATIVE); METHADONE SCREEN, URINE NEGATIVE (NEGATIVE); METHAMPHETAMINES SCREEN, URINE NEGATIVE (NEGATIVE); OPIATE SCREEN, URINE NEGATIVE (NEGATIVE); OXYCODONE SCREEN, URINE NEGATIVE (NEGATIVE); THC CANNABINOID SCREEN, URINE NEGATIVE (NEGATIVE); TRICYCLIC ANTIDEPRESSANT,URINE NEGATIVE (NEGATIVE)
[2023-11-29 22:20] VITALS: BP 112/63; O2SAT 100
== END 2023-11-29 22:12 | disposition home or self-care (01) ==
LOC: EDUNIT# → ED 14:18
DX: F10.229 Alcohol dependence with intoxication, unspecified (principal); Y90.8 Blood alcohol level of 240 mg/100 ml or more; I10 Essential (primary) hypertension; Z79.899 Other long term (current) drug therapy; F17.200 Nicotine dependence, unspecified, uncomplicated
CPT/HCPCS: 36415; 80053; 80306; 82077; 83690; 83735; 85025; 99283; 99284

== ENCOUNTER 2024-02-14 01:33 | Emergency (ER) | payer MEDICAID ==
[2024-02-14 01:59] LABS: BASOPHILS # (AUTO) 0.1 10^3/uL (0.0-0.1); BASOPHILS % (AUTO) 1.4 %; EOSINOPHILS % (AUTO) 0.6 %; HGB - HEMOGLOBIN 13.5 g/dL (12.0-16.0); LYMPHOCYTES # (AUTO) 2.2 10^3/uL (1.5-3.5); MEAN CORPUSCULAR HEMOGLOBIN 31.4 pg (27.0-31.0); MEAN CORPUSCULAR HGB CONC 35.5 g/dL (32.0-36.0); MEAN CORPUSCULAR VOLUME 88.4 fL (81.0-99.0); MEAN PLATELET VOLUME 10.2 fL (7.9-10.8); MONOCYTES # (AUTO) 0.6 10^3/uL (0.0-1.0); NEUTROPHILS % (AUTO) 40.8 %; PLT - PLATELET COUNT 38 10^3/uL (130-450); WHITE BLOOD COUNT 4.9 x10^3/uL (4.8-10.8)
[2024-02-14 01:59] LABS: BILIRUBIN,URINE NEGATIVE (NEGATIVE); GLUCOSE, URINE (UA) NEGATIVE (NEGATIVE); KETONES,URINE (UA) NEGATIVE (NEGATIVE); LEUKOCYTE ESTERASE, URINE TRACE (NEGATIVE); NITRITE,URINE NEGATIVE (NEGATIVE); OCCULT BLOOD,URINE TRACE-INTA (NEGATIVE); PH,URINE 6.5 PH (5.0-7.5); PROTEIN,URINE 30 mg/dL (NEGATIVE); UROBILINOGEN,URINE 0.2 (NORMAL) E.U./dL (NORMAL)
[2024-02-14 02:08] LABS: CLARITY,URINE CLEAR (CLEAR); RBC,URINE 0-5 /HPF (0-5)
[2024-02-14 02:09] LABS: BACTERIA,URINE Few /HPF (None Seen); SQUAMOUS EPITHELIAL CELL,UR MOD Squamous (<= Few)
[2024-02-14 02:20] LABS: INR 1.2 (0.8-1.2); PT - PROTHROMBIN TIME 12.9 secs (9.9-12.6)
[2024-02-14 02:28] LABS: ALBUMIN 3.9 g/dL (3.2-5.5); BILIRUBIN,TOTAL 0.7 mg/dL (0.2-1.0); CREATININE 0.4 mg/dL (0.6-1.3); POTASSIUM 3.2 mmol/L (3.5-4.5)
[2024-02-14 02:30] LABS: TROPONIN I HIGH SENSITIVITY 4.4 ng/L (2.3-14.8)
--- NOTE | 2024-02-14 02:35 | ED Physician Documentation ---
PD HPI CHEST PAIN - Stated complaint Stated Complaint: CP/ABD PX - Chief complaint Chief Complaint: Abd Pain - History obtained from History obtained from: Patient, EMS - Additional information Additional information: BIBA. Patient c/o episodic midline anterior chest pain. She tells me these episodes have been occurring "last couple of years" (per patient). She says she called 911 tonight due to the pain being more intense and persistent than usual. The pain has resolved by the time of my H+P. There was no inciting event nor exacerbating/ameliorating factors. Denies n/v. Also notes mild abdominal pain across upper abdomen which she attributes to her cirrhosis; she indicates it is no worse than usual. Denies fever, diarrhea, dyspnea, leg swelling. 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 : None HEENT: None Psych: None Musculoskeletal: None Derm: None - Past Surgical History Past Surgical History: Yes General: Other - Present Medications Home Medications: Ambulatory Orders Medication Instructions Recorded Confirmed Furosemide [Lasix] 40 mg PO DAILY 03/29/23 11/29/23 Spironolactone [Aldactone] 100 mg PO DAILY 11/29/23 11/29/23 - Allergies Allergies/Adverse Reactions: Allergies Allergy/AdvReac Type Severity Reaction Status Date / Time amoxicillin Allergy Unknown Unknown Verified 02/14/24 01:42 - Social History Does the pt smoke?: Yes Smoking Status: Current every day smoker Does the pt drink ETOH?: Yes Does the pt have substance abuse?: Yes - Immunizations Immunizations are current?: No Immunizations: TDAP current <10years - POLST Patient has POLST: No POLST Status: Full Code PD ED PE NORMAL - Vitals Vital signs reviewed: Yes - General General: Alert and oriented X 3, No acute distress, Well developed/nourished - Cardiac Cardiac: RRR, No murmur, No gallop, No rub - Respiratory Respiratory: No respiratory distress, Clear bilaterally - Abdomen Abdomen: Normal bowel sounds, Soft, Non tender, Non distended - Neuro Neuro: Alert and oriented X 3 Results - Vitals Vitals: Oxygen O2 Source Room air - EKG (time done) No standard instances EKG releavant findings:: EKG personally interpreted by author of this note. Relevant findings are: Rate: Rate (enter#) (89) Rhythm: NSR [place]: Normal Intervals: Normal OK QRS: Normal Ischemia: Normal ST segments Computer interpretation: Disagree with computer (leads V2 and V3 were accidentally switched (and thus no early r wave transition as per computer interpretation)) - Labs Labs: Laboratory Tests 02/14/24 02/14/24 02/14/24 01:30 01:54 01:54 WBC 4.9 RBC 4.30 Hgb 13.5 Hct 38.0 MCV 88.4 MCH 31.4 H MCHC 35.5 RDW 20.0 H Plt Count 38 L MPV 10.2 Neut # (Auto) 2.0 Lymph # (Auto) 2.2 [place] # (Auto) 0.6 Eos # (Auto) 0.0 Baso # (Auto) 0.1 Absolute Nucleated RBC 0.00 Nucleated RBC % 0.0 PT INR Sodium 138 Potassium 3.2 L Chloride 98 L Carbon Dioxide 26 Anion Gap 14.0 H BUN 8 Creatinine 0.4 L Estimated GFR (MDRD) 175 Glucose 105 H Calcium 9.0 Total Bilirubin 0.7 AST 159 H ALT 49 Alkaline Phosphatase 230 H Troponin I High Sens 4.4 Total Protein 8.0 Albumin 3.9 Globulin 4.1 Albumin/Globulin Ratio 1.0 Lipase 77 Urine Color YELLOW Urine Clarity CLEAR Urine pH 6.5 Ur Specific [place] <=1.005 Urine Protein 30 H Urine Glucose (UA) NEGATIVE Urine Ketones NEGATIVE Urine Occult Blood TRACE-INTA Urine Nitrite NEGATIVE Urine Bilirubin NEGATIVE Urine Urobilinogen 0.2 (NORMAL) Ur Leukocyte Esterase TRACE H Urine RBC 0-5 Urine WBC 4-5 Ur Squamous Epith Cells MOD Squamous H Urine Bacteria Few Urine Culture Comments NOT INDICATED Ethyl Alcohol 02/14/24 02/14/24 01:54 02:07 WBC RBC Hgb Hct MCV MCH MCHC RDW Plt Count MPV Neut # (Auto) Lymph # (Auto) [place] # (Auto) Eos # (Auto) Baso # (Auto) Absolute Nucleated RBC Nucleated RBC % PT 12.9 H INR 1.2 Sodium Potassium Chloride Carbon Dioxide Anion Gap BUN Creatinine Estimated GFR (MDRD) Glucose Calcium Total Bilirubin AST ALT Alkaline Phosphatase Troponin I High Sens Total Protein Albumin Globulin Albumin/Globulin Ratio Lipase Urine Color Urine Clarity Urine pH Ur Specific [place] Urine Protein Urine Glucose (UA) Urine Ketones Urine Occult Blood Urine Nitrite Urine Bilirubin Urine Urobilinogen Ur Leukocyte Esterase Urine RBC Urine WBC Ur Squamous Epith Cells Urine Bacteria Urine Culture Comments Ethyl Alcohol 460.9 - Rads (name of study) chest xray Relevant Findings:: Prelim report reviewed, See rad report PD Medical Decision Making - ED course Complexity details: reviewed results, re-evaluated patient, considered differential, d/w patient ED course: No diagnostic findings on tonight's testing. Normal EKG, hs-cTn, and CXR. Thrombocytopenia is incidentally noted (38) but normal WBC, H/H. Normal INR, lipase, and surprisingly unremarkable LFTs (given alcoholic cirrhosis), with only mildly elevated AST but o/w normal LFTs. Serum ethanol markedly elevated (460.9). Mild hypokalemia (3.2). Results d/w patient. As with my previous encounter with this patient in this ED, we discussed potential/likely consequences, from medical perspective, of continued heavy/regular alcohol intake. Etiology of her symptoms is not apparent at this time. Return precautions are reviewed. I advised her to seek follow up with her PCP, next available appointment, for reevaluation. Departure - Departure Disposition: 01 Home, Self Care Clinical Impression: Alcoholism Condition: Good Instructions: ED Chest Pain Atypical Unkn Cause, ED Contusion Chest Wall Comments: Your blood alcohol level was very high today, as it has been on many of your previous visits. As you know, continuing to drink alcohol on a heavy and regular basis will worsen your medical problems (specifically, worsening liver problems, which often then results in kidney failure). Your platelet level was low tonight, although this is also noted on many of your previous results. Low platelet levels leads to increased risk of bleeding; the problems that result from this range from large bruises from minor injuries, to serious and potentially life-threatening problems such as bleeding into your brain, bleeding ulcers. Follow-up with your primary care provider for follow-up/reevaluation within the next week. Forms: PCP List Discharge Date/Time: 02/14/24 05:39
[2024-02-14 03:50] VITALS: BP 106/68; O2SAT 98
--- NOTE | 2024-02-14 07:35 | XRAY Report ---
PROCEDURE: Chest 1V INDICATIONS: Chest pain TECHNIQUE: One view of the chest was acquired. COMPARISON: 07/22/2022. FINDINGS: Surgical changes and devices: None. Lungs and pleura: No pleural effusions or pneumothorax. Lungs are clear. Mediastinum: Mediastinal contours appear normal. Heart size is normal. Bones and chest wall: No suspicious bony lesions. Overlying soft tissues appear unremarkable. IMPRESSION: No acute cardiopulmonary process. Findings are concordant with preliminary interpretation provided by [facility]. Reviewed by: Bart Mclean MD on 02/14/2024 7:34 AM PDT Approved by: Bart Mclean MD on 02/14/2024 7:34 AM PDT Station ID: [id number]
== END 2024-02-14 05:39 | disposition home or self-care (01) ==
LOC: EDUNIT# → ED 01:33
DX: F10.20 Alcohol dependence, uncomplicated (principal); K70.30 Alcoholic cirrhosis of liver without ascites; Y90.8 Blood alcohol level of 240 mg/100 ml or more; F17.200 Nicotine dependence, unspecified, uncomplicated
CPT/HCPCS: 36415; 80053; 81001; 82077; 83690; 84484; 85025; 85610; 87086; 93005; 99284